=== PATIENT | female | born 1985 | race Caucasian/White ===

== ENCOUNTER → 2017-02-24 | Outpatient (CLI) | payer BC ==
[2017-02-24 08:31] LABS: HCG, SERUM QUANTITATIVE < 1.0 MIU/ML
[2017-02-24 10:04] LABS: LUTEINIZING HORMONE 3.6 mIU/mL; PROGESTERONE 0.4 NG/ML
[2017-02-24 10:05] LABS: ESTRADIOL 61.4 PG/ML; FOLLICLE STIMULATING HORMONE 4.7 mIU/mL
== END ==
LOC: M LAB 02-23 15:52
PROVIDERS: ATTEND Obstetrics & Gynecology Reproductive Endocrinology
DX: N97.9 Female infertility, unspecified (principal)

== ENCOUNTER → 2017-03-03 | Outpatient (CLI) | payer BC ==
[2017-03-03 09:06] LABS: HCG, SERUM QUANTITATIVE < 1.0 MIU/ML
[2017-03-03 09:26] LABS: ESTRADIOL 58.4 PG/ML; FOLLICLE STIMULATING HORMONE 5.2 mIU/mL; LUTEINIZING HORMONE 7.4 mIU/mL; PROGESTERONE 0.2 NG/ML
--- NOTE | 2017-03-03 10:01 | REP ---
Pelvic Sonography: History: Infertility. Transvaginal study. Findings: Uterine dimensions today are 9.1 x 3.2 x 4.7 cm. Endometrial echo 0.4 cm thick. A Nabothian cyst is seen in the cervix. There are tiny cysts adjacent to the endometrium. No focal uterine mass is seen. No free fluid noted. The right ovaries dimensions today overall are 4.8 x 2.3 x 3.5 cm. There are five follicles in the right ovary over 1 cm measured as follows: 1.1 x 0.6, 1.5 x 0.6, 1.5 x 0.6, 1.5 x 1.4, and 1.1 x 0.7 cm. In addition, there are 27 follicles in the right ovary ranging in size from 0.3-0.9 cm. The left ovaries dimensions are 3.2 x 2.1 x 2.8 cm. There is a 1.5 x 1.1 cm follicle in the left ovary and there are 19 follicles ranging in size from 0.2-0.9 cm. Impression: Ovarian follicle study as above. Signed by Ryland Bradley MD 03/03/2017 01:24 P
== END ==
LOC: M LAB 07:28
PROVIDERS: ATTEND Obstetrics & Gynecology Reproductive Endocrinology
DX: N97.9 Female infertility, unspecified (principal)

== ENCOUNTER → 2017-03-05 | Outpatient (CLI) | payer BC ==
--- NOTE | 2017-03-05 08:32 | REP ---
Pelvic ultrasound, endovaginal imaging for follicle analysis: Right ovary: There are two follicles greater than 10 mm, the largest measuring up to 20.5 mm. In addition, there are 27 follicles measuring 1.7 290.9 mm. The right ovary is normal size measuring 5.2 x 3 by 1 x 3.2 cm. Left ovary: There are two follicles greater than 10 mm, the largest measuring up to 21.1 mm. In addition, there are 80 follicles measuring 1.8-7.7 mm. The left ovary is normal size measuring 3.4-0.2 x 3.0 cm. The uterus is anteverted and normal size measuring 9.1 x 3.4 x 4.3 cm. The endometrium measures 8.5 mm and has a trilaminar appearance. Signed by Joseph Rosenbaum MD 03/05/2017 08:23 A
[2017-03-05 08:58] LABS: HCG, SERUM QUANTITATIVE < 1.0 MIU/ML
[2017-03-05 09:13] LABS: ESTRADIOL 149.9 PG/ML; LUTEINIZING HORMONE 5.4 mIU/mL; PROGESTERONE 0.2 NG/ML
[2017-03-05 09:14] LABS: FOLLICLE STIMULATING HORMONE 3.8 mIU/mL
== END ==
LOC: M RAD 07:24
PROVIDERS: ATTEND Obstetrics & Gynecology Reproductive Endocrinology
DX: N97.9 Female infertility, unspecified (principal)

== ENCOUNTER → 2017-03-15 | Outpatient (CLI) | payer BC ==
[2017-03-15 10:10] LABS: PROGESTERONE 36.7 NG/ML
[2017-03-15 14:42] LABS: ESTRADIOL 138.1 PG/ML
== END ==
LOC: M LAB 09:15
PROVIDERS: ATTEND Obstetrics & Gynecology Reproductive Endocrinology
DX: Z31.49 Encounter for other procreative investigation and testing (principal)

== ENCOUNTER → 2017-03-22 | Outpatient (CLI) | payer BC ==
[2017-03-22 09:03] LABS: HCG, SERUM QUANTITATIVE < 1.0 MIU/ML
[2017-03-22 11:54] LABS: PROGESTERONE 10.5 NG/ML
== END ==
LOC: M LAB 07:39
PROVIDERS: ATTEND Obstetrics & Gynecology Reproductive Endocrinology
DX: Z32.00 Encounter for pregnancy test, result unknown (principal)

== ENCOUNTER → 2017-03-26 | Outpatient (CLI) | payer BC ==
[2017-03-26 07:16] LABS: HCG, SERUM QUANTITATIVE < 1.0 MIU/ML
--- NOTE | 2017-03-26 08:02 | REP ---
Pelvic ultrasound, endovaginal imaging for follicle analysis: Right ovary: There are no follicles greater than 10 mm. There are three follicles measuring 5 mm. Right ovary is normal size measuring 3.3 x 1.7 x 2.1 cm. Left ovary: There are no follicles greater than 10 mm. There is one follicle measuring 6 mm. Left ovary is normal size measuring 3.6 x 1 point and a 2.4 cm. The uterus is anteverted and mildly enlarged measuring 9.5 x 3.7 x 4 point centimeters. The endometrium is not thickened measuring 2.8 mm Signed by Joseph Rosenbaum MD 03/26/2017 07:53 A
[2017-03-26 09:43] LABS: LUTEINIZING HORMONE 5.1 mIU/mL; PROGESTERONE 0.4 NG/ML
[2017-03-26 09:44] LABS: ESTRADIOL 49.6 PG/ML; FOLLICLE STIMULATING HORMONE 5.6 mIU/mL
== END ==
LOC: M RAD 06:15
PROVIDERS: ATTEND Obstetrics & Gynecology Reproductive Endocrinology
DX: N97.9 Female infertility, unspecified (principal)

== ENCOUNTER → 2017-04-13 | Outpatient (CLI) | payer BC ==
[2017-04-13 09:11] LABS: ESTRADIOL 101.6 PG/ML; PROGESTERONE 24.2 NG/ML
== END ==
LOC: M LAB 07:27
PROVIDERS: ATTEND Obstetrics & Gynecology Reproductive Endocrinology
DX: Z31.49 Encounter for other procreative investigation and testing (principal)

== ENCOUNTER → 2017-04-20 | Outpatient (CLI) | payer BC ==
[2017-04-20 08:21] LABS: HCG, SERUM QUANTITATIVE < 1.0 MIU/ML
[2017-04-20 09:16] LABS: PROGESTERONE 4.4 NG/ML
== END ==
LOC: M LAB 07:37
PROVIDERS: ATTEND Obstetrics & Gynecology Reproductive Endocrinology
DX: Z32.00 Encounter for pregnancy test, result unknown (principal)

== ENCOUNTER → 2017-04-30 | Outpatient (CLI) | payer BC ==
--- NOTE | 2017-04-30 08:55 | REP ---
Transvaginal pelvic sonography: History: Infertility. Comparison study April 05, 2017. Today's sonographic findings: Uterine dimensions today are normal at 8.3 x 3.3 x 4.4 cm. Endometrial stripe is 0.3 cm thick. The endocervical endometrium is somewhat thickened and the cervix appears somewhat bulky compared to the prior study although no definable mass lesion is seen. No free fluid is noted. Overall dimensions of the right ovary today are 4.0 x 2.7 x 3.3 cm. There are 6 follicles in the right ovary measuring over a centimeter as follows: 1.1 x 0.7, 1.1 x 0.7, 1.1 x 0.4, 1.1 x 0.8, 1.0 x 0.6, and 1.7 x 1.0 cm. In addition, the right ovary contains 31 follicles ranging in size from 0.2-0.9 cm. The overall dimensions of the left ovary are 4.4 x 2.5 x 3.5 cm. There are 8 follicles in the left ovary over a centimeter measured as follows: 1.1 x 0.6, 1.1 x 0.4, 1.3 x 0.5, 1.2 x 0.9, 1.6 x 0.9, 1.0 x 0.8, 1.1 x 0.7, and 1.4 x 1.1 cm. In addition, the left ovary contains 33 follicles ranging in size from 0.2-0.9 cm. Impression: Ovarian follicle study as above. Prominent cervix and endocervical canal today. Signed by Ryland Bradley MD 04/30/2017 09:38 A
[2017-04-30 10:37] LABS: LUTEINIZING HORMONE 14.1 mIU/mL; PROGESTERONE < 0.2 NG/ML
[2017-04-30 10:38] LABS: ESTRADIOL 39.4 PG/ML
== END ==
LOC: M RAD 07:55
PROVIDERS: ATTEND Obstetrics & Gynecology Reproductive Endocrinology
DX: N97.9 Female infertility, unspecified (principal)

== ENCOUNTER → 2017-05-03 | Outpatient (CLI) | payer BC ==
--- NOTE | 2017-05-03 08:30 | REP ---
Endovaginal probe pelvic ultrasound 05/03/2017. Clinical history: Infertility. Comparison 04/30/2017. Findings. Endovaginal probe shows uterus anteverted and 8.53.3 x 4.5 cm. Uterus is homogeneous in echogenicity and smooth in contour. The endometrial stripe has a three line appearance with thickness of 5.7 mm. The right ovary is 4.3 x 3 x 3.4 cm. Within it are two follicles over a centimeter. The larger 2.1 x 1.6, the smaller 10.1 x 0.7 cm. There are 11 follicles in the 2.4 - 8.1 mm range. The left ovary is 4.3 x 2.5 x 3.1 cm. There are four follicles over a centimeter. The largest is 14.6 mm, another is 13.3, 11.7 and the smallest 10.5 mm. There are 16 follicles in the 2.4 to 8.4 mm range. Impression: 1. Two follicles over a centimeter in the right ovary at 2.1 and 1.0 cm and four follicles in the left ovary over a centimeter as above. No pelvic free fluid. Uterus and endometrial stripe normal. Signed by Grayson Santamaria MD 05/04/2017 05:48 P
[2017-05-03 10:38] LABS: LUTEINIZING HORMONE 7.2 mIU/mL; PROGESTERONE < 0.2 NG/ML
[2017-05-03 10:39] LABS: ESTRADIOL 103.5 PG/ML
== END ==
LOC: M RAD 06:25
PROVIDERS: ATTEND Obstetrics & Gynecology Reproductive Endocrinology
DX: N97.9 Female infertility, unspecified (principal); N83.01 Follicular cyst of right ovary; N83.02 Follicular cyst of left ovary

== ENCOUNTER → 2017-05-05 | Outpatient (CLI) | payer BC ==
--- NOTE | 2017-05-05 09:13 | REP ---
Endovaginal probe pelvic ultrasound: 03/05/2017. Clinical history infertility. Comparison: 05/03/2017. Findings: Anteverted uterus seen measuring 8.7 x 3.4 x 4.7 cm. There is a three line endometrial echogenic stripe with a thickness of 9.3 mm. No fluid in endometrial cavity or endocervical canal. The right ovary is 5.6 x 2.5 x 4.1 cm. There are two follicles over a centimeter. Larger is 2.7 x 1.7 cm and the smaller 1.2 by L1 0.1 cm. There are nine follicles in the 2.6-9.3 mm range. The left ovary is 4.6 x 2.9 x 3.1 cm. There are three follicles over a centimeter. Measure 1.4 x 1.2, 1.3 x 0.6 and 1.2 x 1.1 cm. There are 22 additional follicles ranging from 3.6 - 9.7 mm. No fluid adjacent to the ovaries or in the cul-de-sac. Impression: 1. Two follicles over a centimeter in the right ovary, three follicles over a centimeter in the left ovary. No pelvic free fluid. Endometrial stripe and uterus unremarkable. Signed by Grayson Santamaria MD 05/05/2017 08:12 A
[2017-05-05 10:03] LABS: LUTEINIZING HORMONE 11.3 mIU/mL; PROGESTERONE < 0.2 NG/ML
[2017-05-05 10:06] LABS: ESTRADIOL 269.7 PG/ML
== END ==
LOC: M RAD 06:22
PROVIDERS: ATTEND Obstetrics & Gynecology Reproductive Endocrinology
DX: N97.9 Female infertility, unspecified (principal)

== ENCOUNTER → 2017-05-13 | Outpatient (CLI) | payer BC ==
[2017-05-13 09:12] LABS: ESTRADIOL 239.9 PG/ML; PROGESTERONE 29.7 NG/ML
== END ==
LOC: M LAB 08:05
PROVIDERS: ATTEND Obstetrics & Gynecology Reproductive Endocrinology
DX: N97.9 Female infertility, unspecified (principal)

== ENCOUNTER → 2017-05-25 | Outpatient (CLI) | payer BC ==
[2017-05-25 14:45] LABS: PROGESTERONE 22.5 NG/ML
== END ==
LOC: M LAB 13:53
PROVIDERS: ATTEND Obstetrics & Gynecology Reproductive Endocrinology
DX: Z31.41 Encounter for fertility testing (principal)

== ENCOUNTER → 2017-05-27 | Outpatient (CLI) | payer BC ==
[2017-05-27 09:02] LABS: HCG, SERUM QUANTITATIVE 472 MIU/ML
[2017-05-27 10:14] LABS: PROGESTERONE 37.9 NG/ML
== END ==
LOC: M LAB 07:51
DX: Z32.01 Encounter for pregnancy test, result positive (principal)
CPT/HCPCS: 84702

== ENCOUNTER → 2017-06-25 | Outpatient (CLI) | payer BC ==
[2017-06-25 09:43] LABS: HCG, SERUM QUANTITATIVE 726 MIU/ML
== END ==
LOC: M LAB 08:32
DX: Z31.41 Encounter for fertility testing (principal)
CPT/HCPCS: 84702

== ENCOUNTER → 2017-07-02 | Outpatient (CLI) | payer BC ==
[2017-07-02 09:43] LABS: HCG, SERUM QUANTITATIVE 182 MIU/ML
== END ==
LOC: M LAB 08:25
DX: O02.1 Missed abortion (principal)
CPT/HCPCS: 84702

== ENCOUNTER → 2017-07-09 | Outpatient (CLI) | payer BC ==
[2017-07-09 08:51] LABS: HCG, SERUM QUANTITATIVE 63 MIU/ML
== END ==
LOC: M LAB 07:43
DX: O02.1 Missed abortion (principal)

== ENCOUNTER → 2017-07-16 | Outpatient (CLI) | payer BC ==
[2017-07-16 11:07] LABS: LUTEINIZING HORMONE 7.2 mIU/mL
[2017-07-16 11:07] LABS: PROGESTERONE < 0.2 NG/ML
[2017-07-16 11:09] LABS: ESTRADIOL 48.9 PG/ML
[2017-07-17 08:56] LABS: HCG, SERUM QUANTITATIVE 15 MIU/ML
== END ==
LOC: M LAB 09:45
DX: E28.9 Ovarian dysfunction, unspecified (principal)
CPT/HCPCS: 83002

== ENCOUNTER → 2017-07-19 | Outpatient (CLI) | payer BC ==
[2017-07-19 09:42] LABS: HCG, SERUM QUANTITATIVE 10 MIU/ML
[2017-07-19 11:04] LABS: PROGESTERONE 0.4 NG/ML
[2017-07-19 11:04] LABS: ESTRADIOL 57.6 PG/ML; FOLLICLE STIMULATING HORMONE 4.4 mIU/mL
== END ==
LOC: M RAD 07:58
DX: N85.8 Other specified noninflammatory disorders of uterus (principal); N97.9 Female infertility, unspecified
CPT/HCPCS: 76830

== ENCOUNTER → 2017-07-21 | Outpatient (CLI) | payer BC ==
[2017-07-21 08:08] LABS: HCG, SERUM QUANTITATIVE 6 MIU/ML
== END ==
LOC: M LAB 07:14
DX: Z32.00 Encounter for pregnancy test, result unknown (principal)

== ENCOUNTER → 2017-07-28 | Outpatient (CLI) | payer BC ==
[2017-07-28 09:55] LABS: LUTEINIZING HORMONE 9.7 mIU/mL
[2017-07-28 09:55] LABS: PROGESTERONE 0.5 NG/ML
[2017-07-28 11:40] LABS: HCG, SERUM QUANTITATIVE 2 MIU/ML
== END ==
LOC: M LAB 06:20
DX: N97.9 Female infertility, unspecified (principal)

== ENCOUNTER → 2017-08-05 | Outpatient (CLI) | payer BC ==
[2017-08-05 09:43] LABS: PROGESTERONE 43.1 NG/ML
[2017-08-05 09:43] LABS: ESTRADIOL 91.1 PG/ML
== END ==
LOC: M LAB 07:24
DX: E28.9 Ovarian dysfunction, unspecified (principal)
CPT/HCPCS: 84443

== ENCOUNTER → 2017-08-12 | Outpatient (CLI) | payer BC ==
[2017-08-12 08:53] LABS: HCG, SERUM QUANTITATIVE < 1.0 MIU/ML
[2017-08-12 09:28] LABS: PROGESTERONE 3.9 NG/ML
== END ==
LOC: M LAB 07:45
DX: E28.9 Ovarian dysfunction, unspecified (principal)
CPT/HCPCS: 84443

== ENCOUNTER → 2017-08-24 | Outpatient (CLI) | payer BC ==
[2017-08-24 11:43] LABS: PROGESTERONE < 0.2 NG/ML
[2017-08-24 11:44] LABS: ESTRADIOL 126.1 PG/ML; LUTEINIZING HORMONE 7.9 mIU/mL
== END ==
LOC: M RAD 07:01
DX: N97.9 Female infertility, unspecified (principal)

== ENCOUNTER → 2017-08-26 | Outpatient (CLI) | payer BC ==
[2017-08-26 10:19] LABS: PROGESTERONE < 0.2 NG/ML
[2017-08-26 10:19] LABS: ESTRADIOL 266.4 PG/ML; LUTEINIZING HORMONE 10.4 mIU/mL
== END ==
LOC: M RAD 06:24
DX: E28.9 Ovarian dysfunction, unspecified (principal); N83.02 Follicular cyst of left ovary; N83.01 Follicular cyst of right ovary
CPT/HCPCS: 76830

== ENCOUNTER → 2017-09-10 | Outpatient (CLI) | payer BC ==
[2017-09-10 10:14] LABS: HCG, SERUM QUANTITATIVE < 1.0 MIU/ML
[2017-09-10 10:17] LABS: PROGESTERONE 3.3 NG/ML
== END ==
LOC: M LAB 08:51
DX: Z32.00 Encounter for pregnancy test, result unknown (principal)

== ENCOUNTER → 2017-10-27 | Outpatient (CLI) | payer BC ==
[2017-10-27 08:23] LABS: HCG, SERUM QUANTITATIVE < 1.0 MIU/ML
[2017-10-27 10:50] LABS: PROGESTERONE 13.5 NG/ML
== END ==
LOC: M LAB 07:11
DX: E28.9 Ovarian dysfunction, unspecified (principal)
CPT/HCPCS: 84702

== ENCOUNTER → 2017-11-23 | Outpatient (CLI) | payer BC ==
[2017-11-23 09:00] LABS: PROGESTERONE 37.8 NG/ML
[2017-11-23 09:01] LABS: ESTRADIOL 739.2 PG/ML
== END ==
LOC: M LAB 07:35
DX: E28.9 Ovarian dysfunction, unspecified (principal)
CPT/HCPCS: 84443

== ENCOUNTER → 2017-11-29 | Outpatient (CLI) | payer BC ==
[2017-11-29 08:15] LABS: HCG, SERUM QUANTITATIVE < 1.0 MIU/ML
[2017-11-29 08:56] LABS: PROGESTERONE 1.8 NG/ML
== END ==
LOC: M LAB 07:19
DX: E28.9 Ovarian dysfunction, unspecified (principal)
CPT/HCPCS: 84702

== ENCOUNTER → 2017-12-22 | Outpatient (CLI) | payer BC ==
[2017-12-22 11:24] LABS: PROGESTERONE 53.6 NG/ML
[2017-12-22 11:25] LABS: ESTRADIOL 281.8 PG/ML
== END ==
LOC: M LAB 07:24
DX: E28.9 Ovarian dysfunction, unspecified (principal)
CPT/HCPCS: 84443

== ENCOUNTER → 2017-12-27 | Outpatient (CLI) | payer BC ==
[2017-12-27 08:28] LABS: HCG, SERUM QUANTITATIVE < 1.0 MIU/ML
[2017-12-27 08:34] LABS: PROGESTERONE 13.4 NG/ML
== END ==
LOC: M LAB 07:20
DX: E28.9 Ovarian dysfunction, unspecified (principal)
CPT/HCPCS: 84702

== ENCOUNTER → 2018-01-07 | Outpatient (CLI) | payer BC ==
[2018-01-07 08:51] LABS: HEMATOCRIT 40.8 % (36.0-47.0); HEMOGLOBIN 13.3 g/dl (12.0-15.5); MEAN CORPUSCULAR HGB CONC 32.6 g/dl (32.0-36.5); MEAN CORPUSCULAR VOLUME 85.9 fl (80.0-96.0); PLATELET COUNT, AUTOMATED 188 10^3/uL (150-450); RED BLOOD COUNT 4.75 10^6/uL (4.00-5.40); RED CELL DISTRIBUTION WIDTH 13.8 % (11.5-14.5)
[2018-01-07 09:23] LABS: ALBUMIN 3.9 GM/DL (3.2-5.2); ALBUMIN/GLOBULIN RATIO 1.34 (1.00-1.93); ALKALINE PHOSPHATASE 62 U/L (45-117); ALT/SGPT 34 U/L (12-78); ANION GAP 7 MEQ/L (8-16); AST/SGOT 17 U/L (7-37); BILIRUBIN,TOTAL 0.7 MG/DL (0.2-1.0); BLOOD UREA NITROGEN 9 MG/DL (7-18); CALCIUM LEVEL 8.5 MG/DL (8.5-10.1); CARBON DIOXIDE LEVEL 30 MEQ/L (21-32); CHLORIDE LEVEL 106 MEQ/L (98-107); CREATININE FOR GFR 0.85 MG/DL (0.55-1.30); GLOMERULAR FILTRATION RATE > 60.0 (>60); GLUCOSE, FASTING 88 MG/DL (70-100); HCG, SERUM QUANTITATIVE < 1.0 MIU/ML; POTASSIUM SERUM 3.9 MEQ/L (3.5-5.1); SODIUM LEVEL 143 MEQ/L (136-145); TOTAL PROTEIN 6.8 GM/DL (6.4-8.2)
== END ==
LOC: M LAB 08:00
DX: Z31.41 Encounter for fertility testing (principal)
CPT/HCPCS: 80053

== ENCOUNTER → 2018-02-23 | Outpatient (CLI) | payer BC ==
[2018-02-23 09:14] LABS: PROGESTERONE 38.3 NG/ML
== END ==
LOC: M LAB 07:02
DX: E28.9 Ovarian dysfunction, unspecified (principal)
CPT/HCPCS: 84443

== ENCOUNTER → 2018-02-28 | Outpatient (CLI) | payer BC ==
[2018-02-28 08:43] LABS: HCG, SERUM QUANTITATIVE < 1.0 MIU/ML
[2018-02-28 09:46] LABS: PROGESTERONE 2.3 NG/ML
== END ==
LOC: M LAB 07:32
DX: E28.9 Ovarian dysfunction, unspecified (principal)
CPT/HCPCS: 84702

== ENCOUNTER → 2018-03-23 | Outpatient (CLI) | payer BC ==
[2018-03-23 09:18] LABS: PROGESTERONE 31.1 NG/ML
[2018-03-23 09:19] LABS: ESTRADIOL 243.9 PG/ML
== END ==
LOC: M LAB 07:03
DX: E28.9 Ovarian dysfunction, unspecified (principal)
CPT/HCPCS: 84443

== ENCOUNTER → 2018-03-28 | Outpatient (CLI) | payer BC ==
[2018-03-28 08:11] LABS: HCG, SERUM QUANTITATIVE < 1.0 MIU/ML
[2018-03-28 09:36] LABS: PROGESTERONE 2.4 NG/ML
== END ==
LOC: M LAB 07:16
DX: E28.9 Ovarian dysfunction, unspecified (principal)
CPT/HCPCS: 84702

== ENCOUNTER → 2018-05-20 | Outpatient (CLI) | payer BC ==
[2018-05-20 11:30] LABS: THYROID STIMULATING HORMONE 1.14 uIU/ML (0.358-3.740)
[2018-05-20 11:33] LABS: PROGESTERONE 58.66 NG/ML
[2018-05-20 11:34] LABS: ESTRADIOL 120.8 PG/ML
== END ==
LOC: M LAB 10:35
PROVIDERS: ATTEND Obstetrics & Gynecology Reproductive Endocrinology
DX: E28.9 Ovarian dysfunction, unspecified (principal)

== ENCOUNTER → 2018-05-25 | Outpatient (CLI) | payer BC ==
[2018-05-25 08:16] LABS: HCG, SERUM QUANTITATIVE < 1.0 MIU/ML
[2018-05-25 08:24] LABS: PROGESTERONE 5.72 NG/ML
== END ==
LOC: M LAB 07:16
PROVIDERS: ATTEND Obstetrics & Gynecology Reproductive Endocrinology
DX: E28.9 Ovarian dysfunction, unspecified (principal)

== ENCOUNTER → 2018-06-21 | Outpatient (CLI) | payer BC ==
[2018-06-21 09:03] LABS: HCG, SERUM QUANTITATIVE < 1.0 MIU/ML
[2018-06-21 09:35] LABS: PROGESTERONE 1.72 NG/ML
== END ==
LOC: M LAB 07:57
PROVIDERS: ATTEND Obstetrics & Gynecology Reproductive Endocrinology
DX: Z32.00 Encounter for pregnancy test, result unknown (principal)

== ENCOUNTER → 2018-07-13 | Outpatient (CLI) | payer BC ==
[2018-07-13 08:57] LABS: THYROID STIMULATING HORMONE 1.8 uIU/ML (0.358-3.740)
[2018-07-13 09:54] LABS: PROGESTERONE 40.15 NG/ML
== END ==
LOC: M LAB 07:46
PROVIDERS: ATTEND Obstetrics & Gynecology Reproductive Endocrinology
DX: E28.9 Ovarian dysfunction, unspecified (principal)

== ENCOUNTER → 2018-07-20 | Outpatient (CLI) | payer BC ==
[2018-07-20 08:59] LABS: HCG, SERUM QUANTITATIVE < 1.0 MIU/ML
[2018-07-20 09:35] LABS: PROGESTERONE 1.59 NG/ML
== END ==
LOC: M LAB 07:48
PROVIDERS: ATTEND Obstetrics & Gynecology Reproductive Endocrinology
DX: E28.9 Ovarian dysfunction, unspecified (principal)

== ENCOUNTER → 2018-08-10 | Outpatient (CLI) | payer BC ==
[2018-08-10 08:42] LABS: THYROID STIMULATING HORMONE 2.02 uIU/ML (0.358-3.740)
[2018-08-10 09:22] LABS: ESTRADIOL 291.5 PG/ML; PROGESTERONE 31.93 NG/ML
== END ==
LOC: M LAB 07:23
PROVIDERS: ATTEND Obstetrics & Gynecology Reproductive Endocrinology
DX: E28.9 Ovarian dysfunction, unspecified (principal)

== ENCOUNTER → 2018-08-17 | Outpatient (CLI) | payer BC ==
[2018-08-17 08:13] LABS: HCG, SERUM QUANTITATIVE < 1.0 MIU/ML
[2018-08-17 08:20] LABS: PROGESTERONE 0.62 NG/ML
== END ==
LOC: M LAB 07:19
PROVIDERS: ATTEND Obstetrics & Gynecology Reproductive Endocrinology
DX: Z32.00 Encounter for pregnancy test, result unknown (principal)

== ENCOUNTER → 2019-02-03 | Outpatient (CLI) | payer BC ==
[2019-02-03 07:49] LABS: HCG, SERUM QUANTITATIVE < 1.0 MIU/ML
[2019-02-03 11:28] LABS: PROGESTERONE 21.46 NG/ML
== END ==
LOC: M LAB 06:50
PROVIDERS: ATTEND Obstetrics & Gynecology Reproductive Endocrinology
DX: E28.9 Ovarian dysfunction, unspecified (principal)

== ENCOUNTER → 2019-03-03 | Outpatient (CLI) | payer BC ==
[2019-03-03 09:18] LABS: HCG, SERUM QUANTITATIVE < 1.0 MIU/ML
[2019-03-03 09:57] LABS: PROGESTERONE 15.35 NG/ML
== END ==
LOC: M LAB 08:17
PROVIDERS: ATTEND Obstetrics & Gynecology Reproductive Endocrinology
DX: Z32.00 Encounter for pregnancy test, result unknown (principal)

== ENCOUNTER → 2019-03-24 | Outpatient (CLI) | payer BC ==
[2019-03-24 10:30] LABS: THYROID STIMULATING HORMONE 1.9 uIU/ML (0.358-3.740)
[2019-03-24 10:36] LABS: ESTRADIOL 156.3 PG/ML
[2019-03-24 11:17] LABS: PROGESTERONE 97.48 NG/ML
== END ==
LOC: M LAB 08:22
PROVIDERS: ATTEND Obstetrics & Gynecology Reproductive Endocrinology
DX: E28.9 Ovarian dysfunction, unspecified (principal)

== ENCOUNTER → 2019-03-31 | Outpatient (CLI) | payer BC ==
[2019-03-31 10:03] LABS: HCG, SERUM QUANTITATIVE < 1.0 MIU/ML
== END ==
LOC: M LAB 08:52
PROVIDERS: ATTEND Obstetrics & Gynecology Reproductive Endocrinology
DX: Z32.00 Encounter for pregnancy test, result unknown (principal)

== ENCOUNTER → 2019-06-08 | Outpatient (CLI) | payer BC ==
--- NOTE | 2019-06-08 11:26 | REP ---
Pelvic sonography: History: Infertility. Findings: Transvaginal pelvic sonography demonstrates normal size uterus with dimensions of 7.8 x 3.7 x 5.0 cm. There is a 0.7 cm hypoechoic area in the posterior myometrium which may be a small fibroid. Endometrial stripe is 1.3 cm thick. No free fluid is seen. The right ovary measures 4.2 x 2.7 x 5.1 cm in overall dimension. It contains two follicles measuring over a centimeter as follows: 1.1 x 0.8 and 1.0 x 0.9 cm. In addition, there are 24 follicles in the right ovary ranging in size from 0.3-0.9 cm. There is a complex cyst in the right ovary 3.5 x 2.7 x 2.6 cm in diameter. The overall dimensions of the left ovary today are 3.8 x 2.0 x 2.7 cm. There is a 1.2 x 1.1 cm follicle in the left ovary and there are 12 subcentimeter follicles ranging from 0.2-0.8 cm. Impression: Ovarian follicle study. As above. 3.5 cm complex cyst in the right ovary. Electronically Signed by Ryland Bradley MD 06/08/2019 07:52 A
[2019-06-09 16:56] LABS: ESTRADIOL 20.5 PG/ML; PROGESTERONE 21.23 NG/ML
== END ==
LOC: M RAD 06:25
PROVIDERS: ATTEND Obstetrics & Gynecology Reproductive Endocrinology
DX: N83.291 Other ovarian cyst, right side (principal); E28.9 Ovarian dysfunction, unspecified

== ENCOUNTER → 2019-06-12 | Outpatient (CLI) | payer BC ==
--- NOTE | 2019-06-12 08:06 | REP ---
Transvaginal pelvic sonography: History: Infertility study. Findings: Uterine dimensions are 8.0 x 3.4 x 4.9 cm. Endometrial echo 0.8 cm thick. There are two small hypoechoic areas in the uterine myometrium posteriorly which could be a fibroids. These measure 1.3 and 0.7 cm in greatest diameter respectively. No free fluid is seen in the cul-de-sac. Overall dimensions of the right ovary today are 4.4 x 2.2 x 4.5 cm. There is a 1.2 x 0.9 cm follicle in the right ovary and there are 19 follicles ranging in size from 0.2-0.8 cm. There is a complex cyst measuring 2.6 x 2.1 by 1.2 cm. The left ovary has overall dimensions of 4.0 x 2.3 x 2.7 cm. There are two follicles measuring greater than a centimeter as follows: 1.2 x 0.9, and 1.2 x 0.8 cm. In addition, the left ovary contains 12 follicles ranging in size from 0.2-0.8 cm. Impression: Follicle study as above. Electronically Signed by Ryland Bradley MD 06/12/2019 07:58 A
[2019-06-12 08:26] LABS: HCG, SERUM QUANTITATIVE < 1.0 MIU/ML
[2019-06-12 11:37] LABS: PROGESTERONE 1.49 NG/ML
[2019-06-12 11:38] LABS: ESTRADIOL 60.6 PG/ML; LUTEINIZING HORMONE 8.7 mIU/mL
== END ==
LOC: M RAD 06:33
PROVIDERS: ATTEND Obstetrics & Gynecology Reproductive Endocrinology
DX: E28.9 Ovarian dysfunction, unspecified (principal)

== ENCOUNTER → 2019-06-16 | Outpatient (CLI) | payer BC ==
[2019-06-16 10:12] LABS: LUTEINIZING HORMONE 4.5 mIU/mL; PROGESTERONE 0.21 NG/ML
[2019-06-16 10:13] LABS: ESTRADIOL 177.4 PG/ML
--- NOTE | 2019-06-16 15:45 | REP ---
Transvaginal pelvic sonography: History: Ovarian follicle study. Infertility. Findings: Transvaginal sonography is performed. Uterine dimensions are 9.3 x 3.6 x 5.3 cm. Endometrial stripe 0.4 cm thick. There are two hypoechoic solid areas in the uterine myometrium consistent with fibroids. These measure 2.1 x 1.2 x 2.1 and 1.2 x 0.6 x 0.7 cm respectively. The smaller lesion is subserosal and posterior. The larger of the two is to the left of midline posterior and myometrial. Overall dimensions of the right ovary today are 4.4 x 3.2 x 3.9 cm. There are two follicles greater than a centimeter in the right ovary: 1.1 x 0.8 and 2.0 x 1.6 cm. In addition, the right ovary contains 13 follicles ranging from 0.3-0.9 cm. The left ovary dimensions are 4.1 x 2.4 x 2.9 cm. The left ovary contains two follicles larger than a centimeter measured as follows: 1.6 x 1.7, and 1.2 x 0.3 centimeters. In addition, the left ovary contains 10 follicles ranging in size from 0.2-0.7 cm. Impression: Ovarian follicle study as above. Electronically Signed by Ryland Bradley MD 06/16/2019 08:17 A
== END ==
LOC: M RAD 06:59
PROVIDERS: ATTEND Obstetrics & Gynecology Reproductive Endocrinology
DX: E28.9 Ovarian dysfunction, unspecified (principal)

== ENCOUNTER → 2019-07-10 | Outpatient (CLI) | payer BC ==
--- NOTE | 2019-07-10 07:23 | REPVR ---
PROCEDURE INFORMATION: Exam: US Pelvis, Transvaginal Exam date and time: 07/10/2019 6:56 AM Age: 33 years old Clinical indication: Screening exam; Follicle study; Additional info: Uterine dysfunction TECHNIQUE: Imaging protocol: Real-time transvaginal pelvic ultrasound with image documentation. Transvaginal imaging was used for better evaluation of the endometrium and adnexa. COMPARISON: Transvaginal NON- US 06/16/2019 7:35 AM FINDINGS: Uterus/cervix: The uterus measures 9.4 x 3.6 x 5.6 cm. There is an ill-defined heterogeneous intramural hypoattenuation in the posterior central to left mid uterine body measuring 1.5 x 1.1 x 1.7 cm. There is another intramural with a small subserosal component hypoattenuation in the posterior mid uterine body on the right measuring 0.8 x 0.6 x 0.9 cm. The endometrium is normal in thickness with trilaminar appearance measuring 8 mm. Right adnexa: The right ovary measures 5.9 x 2.9 x 5.0 cm containing numerous follicular cysts the largest measuring 2.2 x 1.7 cm. Left adnexa: The left ovary measures 4.4 x 2.8 x 2.2 cm containing multiple follicular cysts the largest measuring 1.5 x 0.9 cm. Free fluid: None. IMPRESSION: 1. Bilateral ovarian follicular cysts. 2. Two ill-defined heterogeneous uterine hypoattenuation statistically likely fibroids. Electronically signed by: Suresh Thurston On 07/10/2019 07:23:14 AM
[2019-07-10 12:06] LABS: ESTRADIOL 1435.9 PG/ML; LUTEINIZING HORMONE 2.4 mIU/mL; PROGESTERONE 0.35 NG/ML
== END ==
LOC: M RAD 06:09
PROVIDERS: ATTEND Obstetrics & Gynecology Reproductive Endocrinology
DX: N83.01 Follicular cyst of right ovary (principal); N83.02 Follicular cyst of left ovary; E28.9 Ovarian dysfunction, unspecified

== ENCOUNTER → 2019-07-12 | Outpatient (CLI) | payer BC ==
--- NOTE | 2019-07-12 07:24 | REPVR ---
PROCEDURE INFORMATION: Exam: US Pelvis, Transvaginal Exam date and time: 07/12/2019 6:38 AM Age: 33 years old Clinical indication: Screening exam; Follicle study; Additional info: Ovarian dysfunction TECHNIQUE: Imaging protocol: Real-time transvaginal pelvic ultrasound with image documentation. Transvaginal imaging was used for better evaluation of the endometrium and adnexa. COMPARISON: Transvaginal NON- US 07/10/2019 6:25 AM FINDINGS: Uterus/cervix: The uterus measures 10.0 x 8.4 x 5.7 cm. It again contains 2 fibroids, including an intramural/subserosal fibroid posteriorly on the right measuring 11 x 7 x 10 mm, and an intramural fibroid posteriorly on the left measuring 16 x 14 x 13 mm. The endometrium measures 9 mm in thickness. Small fluid is again present in the cervical canal. Right adnexa: The right ovary measures 7.0 x 7.1 x 3.7 cm. It contains multiple follicles and cysts measuring up to 2.6 cm, including 7 subcentimeter follicles. Left adnexa: The left ovary measures 3.7 x 4.2 x 2.4 cm. It contains multiple follicles measuring up to 1.7 cm, including 8 subcentimeter follicles. Free fluid: There is trace fluid in the posterior cul-de-sac. IMPRESSION: 1. Multiple bilateral ovarian follicles with right ovarian cysts measuring up to 2.6 cm. 2. Two uterine fibroids, as on 07/10/19. 3. Small fluid again present in the cervical canal. 4. Trace free fluid in the cul-de-sac. Electronically signed by: Chris Delatorre On 07/12/2019 07:24:06 AM
[2019-07-12 11:11] LABS: ESTRADIOL 2550.7 PG/ML; FOLLICLE STIMULATING HORMONE 17.7 mIU/mL; PROGESTERONE 0.74 NG/ML
== END ==
LOC: M RAD 06:14
PROVIDERS: ATTEND Obstetrics & Gynecology Reproductive Endocrinology
DX: N83.01 Follicular cyst of right ovary (principal); D25.9 Leiomyoma of uterus, unspecified; E28.9 Ovarian dysfunction, unspecified

== ENCOUNTER → 2019-07-24 | Outpatient (CLI) | payer BC ==
[2019-07-24 09:31] LABS: ESTRADIOL 1176.1 PG/ML; PROGESTERONE 36.01 NG/ML
== END ==
LOC: M LAB 07:05
PROVIDERS: ATTEND Obstetrics & Gynecology Reproductive Endocrinology
DX: E28.9 Ovarian dysfunction, unspecified (principal)

== ENCOUNTER → 2019-07-31 | Outpatient (CLI) | payer BC ==
[2019-07-31 08:03] LABS: HCG, SERUM QUANTITATIVE < 1.0 MIU/ML
[2019-07-31 09:29] LABS: PROGESTERONE 29.89 NG/ML
== END ==
LOC: M LAB 07:11
PROVIDERS: ATTEND Obstetrics & Gynecology Reproductive Endocrinology
DX: E28.9 Ovarian dysfunction, unspecified (principal)

== ENCOUNTER → 2019-08-07 | Outpatient (CLI) | payer BC ==
--- NOTE | 2019-08-07 07:19 | REPVR ---
PROCEDURE INFORMATION: Exam: US Pelvis, Transvaginal Exam date and time: 08/07/2019 6:44 AM Age: 33 years old Clinical indication: Screening exam; Follicle study; Additional info: Ovarian dysfunction TECHNIQUE: Imaging protocol: Real-time transvaginal pelvic ultrasound with image documentation. Transvaginal imaging was used for better evaluation of the endometrium and adnexa. COMPARISON: Transvaginal NON- US 07/12/2019 6:16 AM FINDINGS: Uterus/cervix: The endometrial stripe measures 5 mm in thickness. There is a small anechoic structure in the sub endometrium in the body of the uterus measuring 4 x 4 x 3 mm. This seems to have been included on 1 image on the prior exam but was smaller, measuring 2 x 3 mm previously. There is a posterior subserosal fibroid on the right side measuring 1.1 x 1.0 x 1.0 cm. There is a posterior intramural fibroid on the left side measuring 1.2 x 0.8 x 1.4 cm. Right adnexa: The right ovary is expanded measuring 7.1 x 3.2 x 6.5 cm. There are 2 cystic areas within the right ovary which are complex with internal echoes, likely representing hemorrhagic cysts. One measures 2.9 x 2.0 cm and the other measures 2.1 x 1.6 cm. There is a 13 x 8 mm follicle in the right ovary and multiple additional follicles numbering 16, ranging from 3-9 mm. Left adnexa: The left ovary measures 3.2 x 2.0 x 2.9 cm. There are multiple small follicles in the left ovary, numbering 10, ranging from 3-8 mm. Free fluid: There is a trace of free fluid in the cul-de-sac. IMPRESSION: 1. The right ovary is expanded and contains 2 hemorrhagic cysts which are new or have changed in appearance compared to the prior exam. 2. Multiple small follicles in both ovaries. 3. Round anechoic structure measuring up to 4 mm in the sub endometrium in the body of the uterus, probably representing adenomyosis. 4. Two small fibroids. Electronically signed by: Yolette Sim On 08/07/2019 07:19:30 AM
[2019-08-07 07:30] LABS: HCG, SERUM QUANTITATIVE < 1.0 MIU/ML; THYROID STIMULATING HORMONE 0.812 uIU/ML (0.358-3.740)
[2019-08-07 09:37] LABS: LUTEINIZING HORMONE 3.3 mIU/mL; PROGESTERONE 0.38 NG/ML
[2019-08-07 09:38] LABS: ESTRADIOL 33.1 PG/ML; FOLLICLE STIMULATING HORMONE 4.7 mIU/mL
== END ==
LOC: M RAD 06:08
PROVIDERS: ATTEND Obstetrics & Gynecology Reproductive Endocrinology
DX: N83.291 Other ovarian cyst, right side (principal); N85.8 Other specified noninflammatory disorders of uterus; D25.9 Leiomyoma of uterus, unspecified; E28.9 Ovarian dysfunction, unspecified

== ENCOUNTER → 2019-08-14 | Outpatient (CLI) | payer BC ==
--- NOTE | 2019-08-14 07:20 | REPVR ---
PROCEDURE INFORMATION: Exam: US Pelvis, Transvaginal Exam date and time: 08/14/2019 6:38 AM Age: 34 years old Clinical indication: Screening exam; Follicle study; Additional info: Ovarian dysfunction TECHNIQUE: Imaging protocol: Real-time transvaginal pelvic ultrasound with image documentation. Transvaginal imaging was used for better evaluation of the endometrium and adnexa. COMPARISON: Transvaginal NON- US 08/07/2019 5:19 AM FINDINGS: Uterus/cervix: The uterus measures 8.8 x 3.8 x 4.8 cm. There are again 2 posterior fibroids, 1 intramural, measuring 1.6 x 1.2 x 1.6 cm, and the other subserosal, measuring 1.1 x 0.8 x 0.8 cm. The endometrium measures up to 6 mm in thickness. There are 2 cystic foci along the endometrium, 1 stable and measuring 3 x 4 x 4 mm, and the other new and measuring 4 x 3 x 3 mm. There is small fluid in the cervix. Right adnexa: The right ovary measures 5.9 x 3.8 x 4.9 cm. It again contains 2 hemorrhagic cysts, which measure 3.1 x 2.9 x 2.6 cm and 2.2 x 1.4 x 1.7 cm (previously 2.9 x 2.0 cm and 2.1 x 1.6 cm, respectively). It also contains 13 follicles measuring between 2.4 and 9.6 mm. Left adnexa: The left ovary measures 2.7 x 2.8 x 2.4 cm. It contains a 10.1 x 7.6 mm follicle, as well as 11 additional follicles measuring between 2.5 and 8.5 mm. Free fluid: No significant free fluid is demonstrated. IMPRESSION: 1. Bilateral ovarian follicles as described. 2. Two hemorrhagic cysts in the right ovary, as on 08/07/19. 3. Two uterine fibroids again present. 4. Two small cystic foci along the endometrium, previously 1. 5. Small fluid in the cervix. Electronically signed by: Chris Delatorre On 08/14/2019 07:20:20 AM
[2019-08-14 09:31] LABS: ESTRADIOL 100.9 PG/ML; LUTEINIZING HORMONE 7.8 mIU/mL; PROGESTERONE 0.23 NG/ML
== END ==
LOC: M RAD 06:10
PROVIDERS: ATTEND Obstetrics & Gynecology Reproductive Endocrinology
DX: D25.9 Leiomyoma of uterus, unspecified (principal); N83.291 Other ovarian cyst, right side; N85.00 Endometrial hyperplasia, unspecified; E28.9 Ovarian dysfunction, unspecified

== ENCOUNTER → 2019-08-17 | Outpatient (CLI) | payer BC ==
--- NOTE | 2019-08-17 08:33 | REP ---
Transvaginal pelvic sonography: History: Ovarian dysfunction. Ovarian follicle study. Comparison study August 14, 2019. Findings: Uterine dimensions are 8.1 x 4.1 x 4.7 cm. Endometrial stripe is 0.8 cm thick. Small cystic areas are again seen. Uterine fibroids are noted measuring 1.2 and 1.0 cm in greatest diameter respectively. Overall dimensions of the right ovary today are 5.8 x 3.1 x 4.1 cm. There is a 1.3 x 0.6 cm follicle in the right ovary. There is a hemorrhagic follicle 2.1 x 1.7 x 1.9 cm and another 3.0 x 2.9 x 2.8 cm in the right ovary. In addition, the right ovary contains 13 follicles ranging in size from 0.3-0.7 cm. The left ovaries dimensions are 4.0 x 2.2 x 2.6 cm. There is one follicle over a centimeter measuring 1.1 x 0.7 cm. The left ovary contains 13 follicles ranging in size from 0.3-0.9 cm. Impression: Ovarian follicle study as above. Electronically Signed by Ryland Bradley MD 08/17/2019 08:25 A
[2019-08-17 12:26] LABS: ESTRADIOL 2288.1 PG/ML; LUTEINIZING HORMONE 7.5 mIU/mL; PROGESTERONE 0.21 NG/ML
== END ==
LOC: M RAD 07:09
PROVIDERS: ATTEND Obstetrics & Gynecology Reproductive Endocrinology
DX: E28.9 Ovarian dysfunction, unspecified (principal)

== ENCOUNTER 2019-08-22 08:24 | Emergency (ER) | payer BC ==
[~2019-08-22] VITALS: Ht 167.6 cm; Wt 75.0 kg
[2019-08-22] MEDS ORDERED: PROG50IN5 SQ (09:22)
[2019-08-22] MEDS ORDERED: NOVA1000 (09:22)
[2019-08-22] MEDS ORDERED: ENOX30IN3 SQ (09:22)
[2019-08-22] MEDS ORDERED: ESTR2TAB2 PO (09:22)
--- NOTE | 2019-08-22 09:48 | REP ---
Clinical: Cough and shortness of breath . Comparison: none. Findings: The mediastinum and cardiac silhouette are stable and within normal limits for portable technique. The lung gibbons are clear without acute consolidation, effusion, or pneumothorax. Skeletal structures are intact. Impression: No acute cardiopulmonary process appreciated. Electronically Signed by Shade Torres MD 08/22/2019 09:39 A
[2019-08-22 10:50] VITALS: BP 135/84
== END 2019-08-22 11:00 | disposition home or self-care (01) ==
LOC: M ED 08:24
DX: J06.9 Acute upper respiratory infection, unspecified (principal); Z79.899 Other long term (current) drug therapy
CPT/HCPCS: 36415; 71045; 84702; 87486; 87581; 87633; 87798; 99284; U0002

== ENCOUNTER → 2019-11-27 | Outpatient (CLI) | payer BC ==
[~2019-11-27] MED LIST: ENOX30IN3 SQ; ESTR2TAB2 PO; NOVA1000; PROG50IN5 SQ
[2019-11-27 08:14] LABS: BASO # 0.1 10^3/uL (0.0-0.2); EOS # 0.1 10^3/uL (0.0-0.5); EOS % 1.5 % (0.0-3.0); HEMATOCRIT 41.9 % (36.0-47.0); HEMOGLOBIN 13.3 g/dl (12.0-15.5); LYMPH # 2.3 10^3/uL (1.5-5.0); LYMPH % 32.2 % (24.0-44.0); MEAN CORPUSCULAR HEMOGLOBIN 27.3 pg (27.0-33.0); MEAN CORPUSCULAR HGB CONC 31.7 g/dl (32.0-36.5); MONO # 0.4 10^3/uL (0.0-0.8); MONO % 5.2 % (0.0-5.0); NEUTROPHILS # 4.4 10^3/uL (1.5-8.5); PLATELET COUNT, AUTOMATED 184 10^3/uL (150-450); RED BLOOD COUNT 4.87 10^6/uL (4.00-5.40); WHITE BLOOD COUNT 7.3 10^3/uL (4.0-10.0)
[2019-11-27 08:47] LABS: ALT/SGPT 22 U/L (12-78); BILIRUBIN,TOTAL 0.5 MG/DL (0.2-1.0); BLOOD UREA NITROGEN 12 MG/DL (7-18); CALCIUM LEVEL 9.1 MG/DL (8.5-10.1); CARBON DIOXIDE LEVEL 27 MEQ/L (21-32); CHLORIDE LEVEL 107 MEQ/L (98-107); CHOLESTEROL LEVEL 220 MG/DL (<200); CHOLESTEROL RISK RATIO 3.793 (<5); CREATININE FOR GFR 0.82 MG/DL (0.55-1.30); FREE T4 0.89 NG/DL (0.76-1.46); GLOMERULAR FILTRATION RATE > 60.0 (>60); GLUCOSE, FASTING 91 MG/DL (70-100); HDL CHOLESTEROL 58 MG/DL (>40); LDL CHOLESTEROL 141 MG/DL (<100); NON-HDL-C 162 MG/DL; POTASSIUM SERUM 4.1 MEQ/L (3.5-5.1); SODIUM LEVEL 140 MEQ/L (136-145); TRIGLYCERIDES LEVEL 106 MG/DL (<150)
[2019-11-27 09:57] LABS: TOTAL 25(OH) VITAMIN D 35.5 NG/ML (30.0-100.0)
== END ==
LOC: M LAB 07:31
PROVIDERS: ATTEND Nurse Practitioner Family
DX: Z00.00 Encounter for general adult medical examination without abnormal findings (principal)

== ENCOUNTER → 2020-01-25 | Outpatient (CLI) | payer BC ==
[2020-01-25 12:01] LABS: ESTRADIOL 380.1 PG/ML; PROGESTERONE 44.96 NG/ML
== END ==
LOC: M LAB 07:18
PROVIDERS: ATTEND Obstetrics & Gynecology Reproductive Endocrinology
DX: E28.9 Ovarian dysfunction, unspecified (principal)

== ENCOUNTER → 2020-01-29 | Outpatient (CLI) | payer BC ==
[2020-01-29 13:11] LABS: PROGESTERONE 46.43 NG/ML
== END ==
LOC: M LAB 07:02
PROVIDERS: ATTEND Obstetrics & Gynecology Reproductive Endocrinology
DX: Z32.00 Encounter for pregnancy test, result unknown (principal)

== ENCOUNTER 2020-06-10 16:23 | Emergency (ER) | payer BC ==
[2019-08-22 10:50] VITALS: BP_DIAS 84
[2020-06-10 16:24] VITALS: BP_SYST 175
--- OUTSIDE RECORDS SUMMARY | 2020-06-10 16:30 | CCD ---
Author Author [facility] Organization [facility] Address Unknown Phone Unavailable Care Team Providers Care Government Professor Name Role Phone Pleskach, Shameka PRESIDENT & FOUNDER Unavailable Unavailable Pleskach, Shameka PRESIDENT & FOUNDER Unavailable Unavailable Pleskach, Shameka PRESIDENT & FOUNDER Unavailable Unavailable Pleskach, Shameka PRESIDENT & FOUNDER Unavailable Unavailable Pleskach, Shameka PRESIDENT & FOUNDER Unavailable Unavailable Pleskach, Shameak PRESIDENT & FOUNDER Unavailable Unavailable Pleskach, Shameka PRESIDENT & FOUNDER Unavailable Unavailable Pleskach, Shameka PRESIDENT & FOUNDER Unavailable Unavailable Pleskach, Shameka PRESIDENT & FOUNDER Unavailable Unavailable Pleskach, Shameka PRESIDENT & FOUNDER Unavailable Unavailable Pleskach, Shameka PRESIDENT & FOUNDER Unavailable Unavailable Pleskach, Shameka PRESIDENT & FOUNDER Unavailable Unavailable Pleskach, Shameka PRESIDENT & FOUNDER Unavailable Unavailable Pleskach, Shameka PRESIDENT & FOUNDER Unavailable Unavailable Pleskach, Shameka PRESIDENT & FOUNDER Unavailable Unavailable Pleskach, Shameka PRESIDENT & FOUNDER Unavailable Unavailable Pleskach, Shameka PRESIDENT & FOUNDER Unavailable Unavailable Pleskach, Shameka PRESIDENT & FOUNDER Unavailable Unavailable Pleskach, Shameka PRESIDENT & FOUNDER Unavailable Unavailable Pleskach, Shameka PRESIDENT & FOUNDER Unavailable Unavailable Pleskach, Shameka PRESIDENT & FOUNDER Unavailable Unavailable Pleskach, Shameka PRESIDENT & FOUNDER Unavailable Unavailable Pleskach, Shameka PRESIDENT & FOUNDER Unavailable Unavailable Pleskach, Shameka PRESIDENT & FOUNDER Unavailable Unavailable Pleskach, Shameka PRESIDENT & FOUNDER Unavailable Unavailable Pleskach, Shameka PRESIDENT & FOUNDER Unavailable Unavailable Pleskach, Shameka PRESIDENT & FOUNDER Unavailable Unavailable Pleskach, Shameka PRESIDENT & FOUNDER Unavailable Unavailable SUNDEEP MUNOZ MD Unavailable Unavailable SUNDEEP MUNOZ MD Unavailable Unavailable SUNDEEP MUNOZ MD Unavailable Unavailable SUNDEEP MUNOZ MD Unavailable Unavailable SUNDEEP MUNOZ MD Unavailable Unavailable SUNDEEP MUNOZ MD Unavailable Unavailable SUNDEEP MUNOZ MD Unavailable Unavailable SUNDEEP MUNOZ MD Unavailable Unavailable SUNDEEP MUNOZ MD Unavailable Unavailable SUNDEEP MUNOZ MD Unavailable Unavailable SUNDEEP MUNOZ MD Unavailable Unavailable SUNDEEP MUNOZ MD Unavailable Unavailable SUNDEEP MUNOZ MD Unavailable Unavailable SUNDEEP MUNOZ MD Unavailable Unavailable SUNDEEP MUNOZ MD Unavailable Unavailable SUNDEEP MUNOZ MD Unavailable Unavailable SUNDEEP MUNOZ MD Unavailable Unavailable SUNDEEP MUNOZ MD Unavailable Unavailable SUNDEEP MUNOZ MD Unavailable Unavailable SUNDEEP MUNOZ MD Unavailable Unavailable SUNDEEP MUNOZ MD Unavailable Unavailable SUNDEEP MUNOZ MD Unavailable Unavailable SUNDEEP MUNOZ MD Unavailable Unavailable SUNDEEP MUNOZ MD Unavailable Unavailable SUNDEEP MUNOZ MD Unavailable Unavailable SUNDEEP MUNOZ MD Unavailable Unavailable SUNDEEP MUNOZ MD Unavailable Unavailable SUNDEEP MUNOZ MD Unavailable Unavailable SUNDEEP MUNOZ MD Unavailable Unavailable SUNDEEP MUNOZ MD Unavailable Unavailable SUNDEEP MUNOZ MD Unavailable Unavailable SUNDEEP MUNOZ MD Unavailable Unavailable SUNDEEP MUNOZ MD Unavailable Unavailable SUNDEEP MUNOZ MD Unavailable Unavailable SUNDEEP MUNOZ MD Unavailable Unavailable SUNDEEP MUNOZ MD Unavailable Unavailable SUNDEEP MUNOZ MD Unavailable Unavailable SUNDEEP MUNOZ MD Unavailable Unavailable SUNDEEP MUNOZ MD Unavailable Unavailable SUNDEEP MUNOZ MD Unavailable Unavailable SUNDEEP MUNOZ MD Unavailable Unavailable SUNDEEP MUNOZ MD Unavailable Unavailable SUNDEEP MUNOZ MD Unavailable Unavailable SUNDEEP MUNOZ MD Unavailable Unavailable SUNDEEP MUNOZ MD Unavailable Unavailable SUNDEEP MUNOZ MD Unavailable Unavailable SUNDEEP MUNOZ MD Unavailable Unavailable SUNDEEP MUNOZ MD Unavailable Unavailable SUNDEEP MUNOZ MD Unavailable Unavailable SUNDEEP MUNOZ MD Unavailable Unavailable SUNDEEP MUNOZ MD Unavailable Unavailable SUNDEEP MUNOZ MD Unavailable Unavailable SUNDEEP MUNOZ MD Unavailable Unavailable SUNDEEP MUNOZ MD Unavailable Unavailable SUNDEEP MUNOZ MD Unavailable Unavailable SUNDEEP MUNOZ MD Unavailable Unavailable SUNDEEP MUNOZ MD Unavailable Unavailable SUNDEEP MUNOZ MD Unavailable Unavailable SUNDEEP MUNOZ MD Unavailable Unavailable SUNDEEP MUNOZ MD Unavailable Unavailable SUNDEEP MUNOZ MD Unavailable Unavailable SUNDEEP MUNOZ MD Unavailable Unavailable SUNDEEP MUNOZ MD Unavailable Unavailable SUNDEEP MUNOZ MD Unavailable Unavailable SUNDEEP MUNOZ MD Unavailable Unavailable SUNDEEP MUNOZ MD Unavailable Unavailable SUNDEEP MUNOZ MD Unavailable Unavailable SUNDEEP MUNOZ MD Unavailable Unavailable SUNDEEP MUNOZ MD Unavailable Unavailable SUNDEEP MUNOZ MD Unavailable Unavailable SUNDEEP MUNOZ MD Unavailable Unavailable SUNDEEP MUNOZ MD Unavailable Unavailable SUNDEEP MUNOZ MD Unavailable Unavailable SUNDEEP MUNOZ MD Unavailable Unavailable SUNDEEP MUNOZ MD Unavailable Unavailable SUNDEEP MUNOZ MD Unavailable Unavailable SUNDEEP MUNOZ MD Unavailable Unavailable SUNDEEP MUNOZ MD Unavailable Unavailable SUNDEEP MUNOZ MD Unavailable Unavailable SUNDEEP MUNOZ MD Unavailable Unavailable SUNDEEP MUNOZ MD Unavailable Unavailable SUNDEEP MUNOZ MD Unavailable Unavailable SUNDEEP MUNOZ MD Unavailable Unavailable SUNDEEP MUNOZ MD Unavailable Unavailable SUNDEEP MUNOZ MD Unavailable Unavailable SUNDEEP MUNOZ MD Unavailable Unavailable SUNDEEP MUNOZ MD Unavailable Unavailable SUNDEEP MUNOZ MD Unavailable Unavailable Overholt, T Ruben PA Unavailable Unavailable Overholt, T Ruben PA Unavailable Unavailable Overholt, T Ruben PA Unavailable Unavailable Overholt, T Ruben PA Unavailable Unavailable Overholt, T Urben PA Unavailable Unavailable Overholt, T Ruben PA Unavailable Unavailable Overholt, T Ruben PA Unavailable Unavailable Overholt, T Ruben PA Unavailable Unavailable Overholt, T Ruben PA Unavailable Unavailable Overholt, T Ruben PA Unavailable Unavailable Overholt, T Ruben PA Unavailable Unavailable Overholt, T Ruben PA Unavailable Unavailable Overholt, T Ruben PA Unavailable Unavailable Overholt, T Ruben PA Unavailable Unavailable Overholt, T Ruben PA Unavailable Unavailable RAJAN, L JORGE LYLE Unavailable Unavailable RAJAN, L JORGE LYLE Unavailable Unavailable RAJAN, L JORGE LYLE Unavailable Unavailable RAJAN, L JORGE LYLE Unavailable Unavailable RAJAN, L JORGE LYLE Unavailable Unavailable RAJAN, L JORGE LYLE Unavailable Unavailable RAJAN, L JORGE LYLE Unavailable Unavailable RAJAN, L JORGE LYLE Unavailable Unavailable RAJAN, L JORGE LYLE Unavailable Unavailable RAJAN, L JORGE LYLE Unavailable Unavailable RAJAN, L JORGE LYLE Unavailable Unavailable RAJAN, L JORGE LYLE Unavailable Unavailable RAJAN, L JORGE LYLE Unavailable Unavailable RAJAN, L JORGE LYLE Unavailable Unavailable RAJAN, L JORGE LYLE Unavailable Unavailable RAJAN, L JORGE LYLE Unavailable Unavailable RAJAN, L JORGE LYLE Unavailable Unavailable RAJAN, L JORGE LYLE Unavailable Unavailable RAJAN, L JORGE LYLE Unavailable Unavailable RAJAN, L JORGE LYLE Unavailable Unavailable RAJAN, L JORGE LYLE Unavailable Unavailable RAJAN, L JORGE LYLE Unavailable Unavailable RAJAN, L JORGE LYLE Unavailable Unavailable RAJAN, L JORGE LYLE Unavailable Unavailable RAJAN, L JORGE LYLE Unavailable Unavailable RAJAN, L JORGE LYLE Unavailable Unavailable RAJAN, L JORGE LYLE Unavailable Unavailable RAJAN, L JORGE LYLE Unavailable Unavailable RAJAN, L JORGE LYLE Unavailable Unavailable RAJAN, L JORGE LYLE Unavailable Unavailable RAJAN, L JORGE LYLE Unavailable Unavailable RAJAN, L JORGE LYLE Unavailable Unavailable RAJAN, L JORGE LYLE Unavailable Unavailable RAJAN, L JORGE LYLE Unavailable Unavailable RAJAN, L JORGE LYLE Unavailable Unavailable RAJAN, L JORGE LYLE Unavailable Unavailable RAJAN, L JORGE LYLE Unavailable Unavailable RAJAN, L JORGE LYLE Unavailable Unavailable RAJAN, L JORGE LYLE Unavailable Unavailable RAJAN, L JORGE LYLE Unavailable Unavailable RAJAN, L JORGE LYLE Unavailable Unavailable RAJAN, L JORGE LYLE Unavailable Unavailable Re-disclosure Warning The records that you are about to access may contain information from federally-assisted alcohol or drug abuse programs. If such information is present, then the following federally mandated warning applies: This information has been disclosed to you from records protected by federal confidentiality rules (42 CFR part 2). The federal rules prohibit you from making any further disclosure of this information unless further disclosure is expressly permitted by the written consent of the person to whom it pertains or as otherwise permitted by 42 CFR part 2. A general authorization for the release of medical or other information is NOT sufficient for this purpose. The Federal rules restrict any use of the information to criminally investigate or prosecute any alcohol or drug abuse patient.The records that you are about to access may contain highly sensitive health information, the redisclosure of which is protected by Article 27-F of the [facility] Public Health law. If you continue you may have access to information: Regarding HIV / AIDS; Provided by facilities licensed or operated by the [facility] Office of Mental Health; or Provided by the [facility] Office for People With Developmental Disabilities. If such information is present, then the following [facility] mandated warning applies: This information has been disclosed to you from confidential records which are protected by state law. State law prohibits you from making any further disclosure of this information without the specific written consent of the person to whom it pertains, or as otherwise permitted by law. Any unauthorized further disclosure in violation of state law may result in a fine or residential sentence or both. A general authorization for the release of medical or other information is NOT sufficient authorization for further disc losure. Family History Family Member Name Family Member Gender Family Member Status Date o f Status Description Data Source(s) Unknown Unknown Problem [facility] ([facility]) Encounters Encounter Providers Location Date Indications Data Source(s ) Outpatient Attender: Shameka Ochoa [facility] Main Office 11/22/2019 0 3:00:00 PM EDT [facility] ([facility] Outpatient Referrer: FANTASMA MUNOZ MD 08/30/2019 05:50:00 A M EDT [facility] Outpatient Referrer: FANTASMA MUNOZ MD 08/15/2019 11:21:00 A M EDT [facility] Outpatient Referrer: FANTASMA MUNOZ MD 08/01/2019 05:54:00 A M EST [facility] Outpatient Referrer: FNATASMA MUNOZ MD 06/23/2019 06:06:00 A M EST [facility] Outpatient Referrer: FANTASMA MUNOZ MD 06/22/2019 01:43:00 P M EST [facility] Outpatient Attender: Ruben HOLDEN Physical Therapy 12:30:00 PM EST [facility] ([facility]) Outpatient Attender: JORGE RAJAN MD [facility] 09:15:00 AM EST [facility] ([facility]) Medications Medication Brand Name Start Date Product Form Dose Route Admi nistrative Instructions Pharmacy Instructions Status Indications Reaction Description Data Source(s) meloxicam 15 MG Oral Tablet Meloxicam 06/02/2019 12:00:00 AM EST ORAL active [facility] ([facility]) Prednisone 5 MG Oral Tablet Prednisone 04/14/2019 12:00:00 AM EST active [facility] ([facility]) Insurance Providers Payer name Policy type / Coverage type Policy ID Covered constitution party ID Covered constitution party's relationship to richardson Policy Richardson Plan Information [place]/307 [id number] [id number] [employer] BCBS B [id number] P [id number] [place]/307 [id number] [id number] BCBS/[employer] Commercial [id number] Family Dependent [id number] [place] 302/307 [id number] [id number] [employer] BLUE CROSS BLUE SHIELD HEA [id number] SP [id number] [employer] BC-BS PPO 306 [id number] [id number] [employer] BC-BS PPO 306 [id number] HU2 [id number] [employer] BC-BS PPO 306 [id number] [id number] [employer] BC-BS PPO 306 [id number] [employer] BC-BS PPO 306 [id number] [id number] [employer] BC-BS PPO 306 [id number] [employer] BC-BS PPO 306 [id number] SP [id number] [employer] BCBS B [id number] P [id number] [employer] BCBS B [id number] S [id number] [facility] [id number] SP [id number] [facility] O [id number] S [id number] [facility] INS[facility] [id number] 18 [id number] [place]PO 302/307 [id number] SP [id number] [facility] [id number] [facility] PHY [id number] HU2 [id number] [facility] PHY [id number] SP [id number] [facility] [id number] 01 [id number] [facility] SHIELD-O/P [id number] Surgeries/Procedures Procedure Description Date Indications Data Source(s) RADIOLOGIC EXAM KNEE COMPLETE 4/MORE VIEWS 06/02/2019 12:00:00 AM EST [facility] ([facility]) Results ID Date Data Source [id number] 04/24/2020 02:39:32 PM EST [facility] - C[facility] SPEC EXP DATE 04/04/2020PATI ENT ABO/Rh O POSITIVEANTIBODY SCREEN NEGATIVETESTING SITE PERFORMED AT [address] [place] [address] Name Value Range Interpretation Code Description Data Monika rce(s) Supporting Document(s) SODIUM 139 mmol/L (136-145) [facility] - CORE POTASSIUM 3.4 mmol/L (3.6-5.2) L [facility] - CORE CHLORIDE 106 mmol/L (100-108) [facility] - CORE CO2 27 mmol/L (22-31) [facility] - CORE ANION GAP 6 mmol/L (7-16) L [facility] - CORE UREA NITROGEN 3 mg/dL (7-24) L [facility] - [facility] CREATININE 0.54 mg/dL (0.60-1.00) L [facility] - C[facility] BUN/CREAT RATIO 5.6 RATIO (10.0-20.0) L [facility] - CORE GLUCOSE 78 mg/dL (70-99) [facility] - CORE CALCIUM 8.5 mg/dL (8.4-10.2) [facility] - CORE TOTAL PROTEIN 6.2 g/dL (6.4-8.2) L [facility] - CORE ALBUMIN 3.2 g/dL (3.5-4.6) L [facility] - CORE GLOBULIN 3.0 g/dL (2.7-4.3) [facility] - CORE ALB/GLOB RATIO 1.1 RATIO [facility] - CORE ALKALINE PHOSPHATASE 85 U/L (45-117) [facility]ator [facility] - CORE BILIRUBIN,TOTAL 0.3 mg/dL (0.0-1.0) [facility] [employer] - CORE PLEASE NOTE:Total bilirubin results may be falselyelevated in patients taking Eltrombopag. AST (SGOT) 11 U/L (11-39) [facility] - CORE ALT (SGPT) 15 U/L (12-78) [facility] - CORE GFR >60 ml/min/1.73m2 (>59) [facility] - CORE GFR ( AMER) >60 ml/min/1.73m2 (>59) [facility] - CORE GFR INTERPRETATION [facility] [employer] CORE --NORMAL KIDNEY FUNCTION OR MILD DISEASE - GFR >OR= 60CHRONIC KIDNEY DISEASE - GFR 15 - 59RENAL FAILURE - GFR <15 Est. GFR calculation based on the MDRDstudy equation, which assumes a steadystate for creatinine. Est. GFR should notbe used for medication dosing. ID Date Data Source [id number] 04/01/2020 07:43:14 PM EST [facility] - CORE SPEC EXP DATE 04/04/2020PATI ENT ABO/Rh O POSITIVEANTIBODY SCREEN NEGATIVETESTING SITE PERFORMED AT [address] [place] [address] Name Value Range Interpretation Code Description Data Monika rce(s) Supporting Document(s) WBC 12.4 10*3/uL (4.1-11.0) H [facility] - CORE RBC 4.56 10*6/uL (4.00-5.40) [facility] - CORE HGB 12.8 g/dL (12.0-16.0) [facility] - C[facility] HCT 38.7 % (36.0-47.0) [facility] - C[facility] MCV 84.8 fL (80.0-95.0) [facility] - C[facility] MCH 28.1 pg (27.0-32.0) [facility] - CORE MCHC 33.1 g/dL (32.0-36.0) [facility] - C[facility] RDW 14.1 % (10.5-14.5) [facility] - CORE PLT 209 10*3/uL (150-450) [facility] - C[facility] MPV 8.6 fL (7.1-10.7) [facility] - CORE NEUT % 86.4 % (35.0-75.0) H [facility] - CORE LYMPH % 9.5 % (16.0-52.0) L [facility] - CORE MONO % 3.3 % (0.0-8.0) [facility] - CORE EOS % 0.2 % (0.0-5.0) [facility] - CORE BASO % 0.6 % (0.0-4.0) [facility] - CORE NEUT # 10.7 10*3/uL (1.8-7.7) H [facility] - CORE LYMPH # 1.2 10*3/uL (1.2-4.8) [facility] - CORE MONO # 0.4 10*3/uL (0.0-0.8) Laboratory [facility] - CORE Eosinophils [#/volume] in Blood by Automated count 0.0 10*3/uL (0.0-0 .5) Laboratory [facility] BASO # 0.1 10*3/uL (0.0-0.2) Laboratory [facility] [place] - CORE ID Date Data Source [id number] 04/01/2020 08:05:45 PM EST [facility] - CORE SPEC EXP DATE 04/04/2020PATI ENT ABO/Rh O POSITIVEANTIBODY SCREEN NEGATIVETESTING SITE PERFORMED [facility] [address] [facility] [address] Name Value Range Interpretation Code Description Data Monika rce(s) Supporting Document(s) HEPATITIS B S AG @ (NEG) Laboratory [facility] ID Date Data Source [id number] 04/01/2020 08:29:09 PM EST [facility] - CORE SPEC EXP DATE 04/04/2020PATI ENT ABO/Rh O POSITIVEANTIBODY SCREEN NEGATIVETESTING SITE PERFORMED AT [address] [facility] [address] Name Value Range Interpretation Code Description Data Monika rce(s) Supporting Document(s) TREPONEMA IGG/IGM @ (NEG) [facility] ID Date Data Source [id number] 04/01/2020 09:02:04 PM EST [facility] - CORE SPEC EXP DATE 04/04/2020PATI ENT ABO/Rh O POSITIVEANTIBODY SCREEN NEGATIVETESTING SITE PERFORMED AT [address] [facility] [address] Name Value Range Interpretation Code Description Data Mnoika rce(s) Supporting Document(s) HIV 1/2 SCREEN @ (NEG) [facility] - CORE Testing performed using Siemens [employer] taur 4th gen CHIV combo assay.This assay detects the HIV1 p24 antigenin addition to antibodies to HIV1 and HIV2. ID Date Data Source [id number] 04/02/2020 12:04:25 AM EST [facility] - CORE SPEC EXP DATE 04/04/2020PATI ENT ABO/Rh O POSITIVEANTIBODY SCREEN NEGATIVETESTING SITE PERFORMED AT [address] [facility] [address] Name Value Range Interpretation Code Description Data Monika rce(s) Supporting Document(s) ID Date Data Source [id number] 04/02/2020 03:34:53 PM EST [facility] [employer] [place] SPEC EXP DATE 04/04/2020PATI ENT ABO/Rh O POSITIVEANTIBODY SCREEN NEGATIVETESTING SITE PERFORMED AT [address] [facility] [address] Name Value Range Interpretation Code Description Data Monika rce(s) Supporting Document(s) RUBELLA IGG AB @ [facility] [employer] [facility] IgG antibody to Rubella detected. IgGan tibody levels are at a level consideredto indicate positive immunity. ID Date Data Source [id number] 04/02/2020 12:58:53 PM EST [facility] [employer] Name Value Range Interpretation Code Description Data Monika rce(s) Supporting Document(s) SPECIMEN DESCRIPTION [facility]ator [facility] C. TRACHOMATIS (NEG) Laboratory [facility] THIS ASSAY AMPLIFIES AND DETECTS TARGETD NA USING CEMENT MASON-MEDIATEDAMPLIFICATION N. GONORRHOEAE (NEG) Laboratory [facility] THIS ASSAY AMPLIFIES AND DETECTS TARGETD NA USING CEMENT MASON-MEDIATEDAMPLIFICATION ID Date Data Source [id number] 04/03/2020 07:42:32 AM EST [facility] [employer] SPECIMEN DESCRIPTION MIDSTREAM UR INE,CLEAN CATCHCULTURE RESULTS MIXED UROGENITAL MARIE; PLEASE SUBMIT A NEW SPEC IMEN IF CLINICALLY INDICATED.REPORT STATUS FINAL 04/03/2020 Name Value Range Interpretation Code Description Data Monika rce(s) Supporting Document(s) ID Date Data Source [id number] 01/29/2020 07:14:00 AM EDT [facility] ([facility] Name Value Range Interpretation Code Description Data Monika rce(s) Supporting Document(s) Choriogonadotropin.beta subunit [Moles/volume] in Serum or Plasm a 235 MIU/ML [facility] ([facility] GESTATIONAL AGE APPROXIMATE HCG RANGE (MIU/ML) - 0.2-1 WEEK 5-50 1-2 WEEKS 50-500 2-3 WEEKS 100-5,000 3-4 WEEKS 500-10,000 4-5 WEEKS 1,000-50,000 5-6 WEEKS 10,000-100,000 6-8 WEEKS 15,000-200,000 2-3 MONTHS 10,000-100,00 0 NON FEMALES LESS THAN 3.0 Patient samples may contain human heterophilic antibodies that could react with immunoassays to give falsely elevated or depressed results. This assay has been designed to minimize interference from heterophilic antibodies. Elevated hCG levels have also been associated with trophoblastic disease and nontrophoblastic neoplasms. The possibility of having these diseases should be considered before a diagnosis of is made. This test is not intended for use as a surrogate marker for aiding in the diagnosis or monitoring the treatment of cancer patients. Siemens [employer] methodology. Progesterone [Mass/volume] in Serum or Plasma 46.43 ng/mL [facility] ([facility] <content>Normal Ranges (ng/ml)</content>
<content>Females :</content>
<content>FOLLICULAR PHASE 0.15- 1.40</content>
<content>LUTEAL PHASE 3.34-25.56</content>
<content>MID-LUTEAL PHASE 4.44- 28.03</content>
<content>POST MENOPAUSAL <0.73</content>
<content></content>
<content> Females :</content>
<content>1st TRIMESTER 11.22- 90.00</content>
<content>2nd TRIMESTER 25.55- 89.40</content>
<content>3rd TRIMESTER 48.40-422.50</content>
<content></content> ID Date Data Source [id number] 01/25/2020 07:30:00 AM EDT [facility] ([facility] Name Value Range Interpretation Code Description Data Monika rce(s) Supporting Document(s) Progesterone [Mass/volume] in Serum or Plasma 44.96 ng/mL [facility] ([facility] <content>Normal Ranges (ng/ml)</content>
<content>Females :</content>
<content>FOLLICULAR PHASE 0.15- 1.40</content>
<content>LUTEAL PHASE 3.34-25.56</content>
<content>MID-LUTEAL PHASE 4.44- 28.03</content>
<content>POST MENOPAUSAL <0.73</content>
<content></content>
<content> Females :</content>
<content>1st TRIMESTER 11.22- 90.00</content>
<content>2nd TRIMESTER 25.55- 89.40</content>
<content>3rd TRIMESTER 48.40-422.50</content>
<content></content> Estradiol (E2) [Mass/volume] in Serum or Plasma 380.1 pg/mL [facility] ([facility] <content>NORMAL MENSTRUATING FEMALES:</content>
<content></content>
<content>FOLLICULAR PHASE 19.5-144.2 PG/ML</content>
<content>MID CYCLE PEAK 63.9- 356.7 PG/ML</content>
<content>LUTEAL PHASE 55.8-214.2 PG/ML</content>
<content></content>
<content>POST MENOPAUSAL FEMALES <32.2 PG/ML</content>
<content>(UNTREATED)</content>
<content></content>
<content>THE eESTRADIOL2 ASSAY IS PERFORMED ON THE [employer] BY</content>
<content>CHEMILUMINESCENCE AND SHOULD NOT BE COMPARED INTERCHANGEABLY</content>
<content>WITH OTHER METHODS.</content>
<content></content>
<content>Falsely elevated Estradiol test results can be seen in</content>
<content>patients treated with fulvestrant (Faslodex). Estradiol</content>
<content>concentrations in fulvestrant treated women should only be</content>
<content>measured by LC- MS (Liquid Chromatography-Mass Spectrometry).</content>
<content></content> ID Date Data Source [id number] 11/27/2019 07:39:00 AM EDT [facility] ([facility] Name Value Range Interpretation Code Description Data Monika rce(s) Supporting Document(s) Thyroid Stimulating Hormone 1.510 uIU/ML 0.358-3.740 [facility] Free T4 0.89 ng/dL 0.76-1.46 [facility] ([facility] ID Date Data Source [id number] 11/27/2019 07:39:00 AM EDT [facility] ([facility] Name Value Range Interpretation Code Description Data Monika rce(s) Supporting Document(s) Calcidiol [Mass/volume] in Serum or Plasma 35.5 ng/mL 30.0-100.0 [facility] ([facility] ID Date Data Source [id number] 11/27/2019 07:39:00 AM EDT [facility] ([facility] Name Value Range Interpretation Code Description Data Monika rce(s) Supporting Document(s) Cholesterol Level 220 mg/dL [facility] ([facility] Triglycerides Level 106 mg/dL [facility] ([facility] HDL Cholesterol 58 mg/dL [facility] LDL Cholesterol 141 mg/dL [facility] Cholesterol Risk Ratio 3.793 [facility] Non-HDL-C 162 mg/dL [facility] ([facility] ID Date Data Source [id number] 11/27/2019 07:39:00 AM EDT [facility] ([facility] Name Value Range Interpretation Code Description Data Monika rce(s) Supporting Document(s) Blood Urea Nitrogen 12 mg/dL 7-18 [facility] ([facility] Glucose, Fasting 91 mg/dL 70-100 [facility] Glomerular Filtration Rate Laboratory test result [facility] ([facility] <content>Units are mL/min/1.73 m2</content>
<content></content>
<content>Chronic Kidney Disease Staging per [facility]:</content>
<content></content>
<content>Stage I & II GFR >=60 Normal to Mildly Decreased</content>
<content>Stage III GFR 30- 59 Moderately Decreased</content>
<content>Stage IV GFR 15-29 Severely Decreased</content>
<content>Stage V GFR <15 Very Little GFR Left</content>
<content>ESRD GFR <15 on TIMEKEEPER</content>
<content></content> Sodium Level 140 meq/L 136-145 [facility] Creatinine For GFR 0.82 mg/dL 0.55-1.30 [facility] Carbon Dioxide Level 27 meq/L 21-32 [facility] ([facility] Chloride Level 107 meq/L 98-107 [facility] Potassium Serum 4.1 meq/L 3.5-5.1 [facility] Ast/Sgot 14 U/L 7-37 [facility] Anion Gap 6 meq/L 8-16 [facility] Calcium Level 9.1 mg/dL 8.5-10.1 [facility] Bilirubin,Total 0.5 mg/dL 0.2-1.0 [facility] Alkaline Phosphatase 71 U/L 45-117 [facility] Alt/SGPT 22 U/L 12-78 [facility] Total Protein 7.0 GM/DL 6.4-8.2 [facility] Albumin/Globulin Ratio 1.3 1.2-2.2 [facility] Albumin 4.0 GM/DL 3.2-5.2 [facility] ID Date Data Source [id number] 11/27/2019 07:39:00 AM EDT [facility] ([facility] Name Value Range Interpretation Code Description Data Monika rce(s) Supporting Document(s) White Blood Count 7.3 10 4.0-10.0 [facility] ([facility] Red Blood Count 4.87 10 4.00-5.40 [facility] Mean Corpuscular Volume 86.0 fl 80.0-96.0 M [facility] ([facility] Hemoglobin 13.3 g/dL 12.0-15.5 [facility] ([facility] Hematocrit 41.9 % 36.0-47.0 [facility] Red Cell Distribution Width 12.9 % 11.5-14.5 [facility] Mean Corpuscular HGB Conc 31.7 g/dL 32.0-36.5 [facility] Mean Corpuscular Hemoglobin 27.3 pg 27.0-33.0 [facility] Platelet Count, Automated 184 10 150-450 [facility] Neutrophils % 60.0 % 36.0-66.0 [facility] Glacier % 5.2 % 0.0-5.0 [facility] Lymph % 32.2 % 24.0-44.0 [facility] Immature Granulocyte % 0.1 % 0-3.0 [facility] Eos % 1.5 % 0.0-3.0 [facility] Baso % 1.0 % 0.0-1.0 [facility] Nucleated Red Blood Cell % 0.0 % 0-0 [facility] ([facility] Lymph # 2.3 10 1.5-5.0 [facility] ([facility] Neutrophils # 4.4 10 1.5-8.5 [facility] Glacier # 0.4 10 0.0-0.8 [facility] Eos # 0.1 10 0.0-0.5 [facility] Baso # 0.1 10 0.0-0.2 [facility] ID Date Data Source [id number] 08/22/2019 08:44:00 AM EDT [facility] Name Value Range Interpretation Code Description Data Monika rce(s) Supporting Document(s) SARS CORONAVIRUS 2 RNA [facility] This lab was ordered by [facility] and reported by [facility]. Procedure Social History Code Duration Value Status Description Data Source(s ) Smoking 11/22/2019 12:00:00 AM EDT Patient has never smoked co mpleted Patient has never smoked [facility] Vital Signs ID Date Data Source [id number] Name Value Range Interpretation Code Description Data Source(s) Diastolic blood pressure 103 mm[Hg] 103 mm[Hg] [facility] Systolic blood pressure 164 mm[Hg] 164 mm[Hg] M [facility] Diastolic blood pressure 92 mm[Hg] 92 mm[Hg] [facility] Systolic blood pressure 167 mm[Hg] 167 mm[Hg] M [facility] ([facility] Body mass index (BMI) [Ratio] 28.2 kg/m2 28.2 k g/m2 [facility] Oxygen saturation in Arterial blood by Pulse oximetry 98 % 98 % [facility] Body weight 174.75 [lb_av] 174.75 [lb_av] [facility] ([facility] Body height 66 [in_i] 66 [in_i] [facility] 5'6" Respiratory rate 16 /min 16 /min [facility] ( [facility] Body temperature 97.9 [degF] 97.9 [degF] [facility] Heart rate 71 /min 71 /min [facility] Body mass index (BMI) [Ratio] 27.1 kg/m2 27.1 k g/m2 [facility] ([facility] Body weight 168.00 [lb_av] 168.00 [lb_av] [facility] T ([facility]) Body height 66 [in_i] 66 [in_i] [facility] ([facility]) 5'6" Body temperature 98.6 [degF] 98.6 [degF] [facility] ([facility]) Body surface area 1.86 m2 1.86 m2 [facility] ([facility] Body mass index (BMI) [Ratio] 27.9 kg/m2 27.9 k g/m2 [facility] ([facility] [employer]) Body weight 170.00 [lb_av] 170.00 [lb_av] [facility] T ([facility] [employer] [facility]) Body height 65.50 [in_i] 65.50 [in_i] [facility] ([facility] [employer] [employer] [employer] [facility]) 5'5.50" Heart rate 88 /min 88 /min [facility] ([facility] [employer] [employer]) Diastolic blood pressure 90 mm[Hg] 90 mm[Hg] [facility] ([facility] [employer] [employer]) Systolic blood pressure 130 mm[Hg] 130 mm[Hg] [facility] ([facility] [employer] [employer])
[2020-06-10] MEDS ORDERED: ACET-838 PO (17:47)
[2020-06-10] MEDS ORDERED: PRENTAB9 PO (17:47)
--- OUTSIDE RECORDS SUMMARY | 2020-06-12 12:46 | CCD ---
Author Author [facility] Organization [facility] Address Unknown Phone Unavailable Care Team Providers Care Senior Operations Manager Name Role Phone Pleskach, Shameka OFFICE AUTOMATION TECHNICIAN Unavailable Unavailable Pleskach, Shameka OFFICE AUTOMATION TECHNICIAN Unavailable Unavailable Pleskach, Shameka OFFICE AUTOMATION TECHNICIAN Unavailable Unavailable Pleskach, Shameka OFFICE AUTOMATION TECHNICIAN Unavailable Unavailable Pleskach, Shameka OFFICE AUTOMATION TECHNICIAN Unavailable Unavailable Pleskach, Shameka OFFICE AUTOMATION TECHNICIAN Unavailable Unavailable Pleskach, Shameka OFFICE AUTOMATION TECHNICIAN Unavailable Unavailable Pleskach, Shameka OFFICE AUTOMATION TECHNICIAN Unavailable Unavailable Pleskach, Shameka OFFICE AUTOMATION TECHNICIAN Unavailable Unavailable Pleskach, Shamkea OFFICE AUTOMATION TECHNICIAN Unavailable Unavailable Pleskach, Shameka OFFICE AUTOMATION TECHNICIAN Unavailable Unavailable Pleskach, Shameka OFFICE AUTOMATION TECHNICIAN Unavailable Unavailable Pleskach, Shameka OFFICE AUTOMATION TECHNICIAN Unavailable Unavailable Pleskach, Shameka OFFICE AUTOMATION TECHNICIAN Unavailable Unavailable Pleskach, Shameka OFFICE AUTOMATION TECHNICIAN Unavailable Unavailable Pleskach, Shameka OFFICE AUTOMATION TECHNICIAN Unavailable Unavailable Pleskach, Shameka OFFICE AUTOMATION TECHNICIAN Unavailable Unavailable Pleskach, Shameka OFFICE AUTOMATION TECHNICIAN Unavailable Unavailable Pleskach, Shameka OFFICE AUTOMATION TECHNICIAN Unavailable Unavailable Pleskach, Shameka OFFICE AUTOMATION TECHNICIAN Unavailable Unavailable Pleskach, Shameka OFFICE AUTOMATION TECHNICIAN Unavailable Unavailable Pleskach, Shameka OFFICE AUTOMATION TECHNICIAN Unavailable Unavailable Pleskach, Shameka OFFICE AUTOMATION TECHNICIAN Unavailable Unavailable Pleskach, Shameka OFFICE AUTOMATION TECHNICIAN Unavailable Unavailable Pleskach, Shameka OFFICE AUTOMATION TECHNICIAN Unavailable Unavailable Pleskach, Shameka OFFICE AUTOMATION TECHNICIAN Unavailable Unavailable Pleskach, Shameka OFFICE AUTOMATION TECHNICIAN Unavailable Unavailable Pleskach, Shameka OFFICE AUTOMATION TECHNICIAN Unavailable Unavailable SUNDEEP MUNOZ MD Unavailable Unavailable [...] Unavailable SUNDEEP MUNOZ MD Unavailable Unavailable SUNDEEP MUONZ MD Unavailable Unavailable SUNDEEP MUNOZ MD Unavailable [...] is protected by Article 27-F of the [facility] Public Health law. If you continue you may have access to information: Regarding HIV / AIDS; Provided by facilities licensed or operated by the [facility] Office of Mental Health; or Provided by the [facility] Office for People With Developmental Disabilities. If such information is present, then the following [facility] mandated warning applies: This information has [...] law may result in a fine or fci sentence or both. A general authorization for the release of medical or other information is NOT sufficient authorization for further disc losure. Family History Family Member Name Family Member Gender Family Member Status Date o f Status Description Data Source(s) Unknown Unknown Problem [facility] ([facility]) Encounters Encounter Providers Location Date Indications Data Source(s ) Outpatient Attender: Shameka Ochoa [facility] Main Office 11/22/2019 0 3:00:00 PM EDT [facility] ([facility] Outpatient Referrer: FANTASMA MUNOZ MD 08/30/2019 05:50:00 A M EDT [facility] Outpatient Referrer: FANTASMA MUNOZ MD 08/15/2019 11:21:00 A M EDT [facility] Outpatient Referrer: FANTASMA MUNOZ MD 08/01/2019 05:54:00 A M EST [facility] Outpatient Referrer: FANTASMA MUNOZ MD 06/23/2019 06:06:00 A M EST [facility] Outpatient Referrer: FANTASMA MUNOZ MD 06/22/2019 01:43:00 P M EST [facility] Outpatient Attender: Ruben HOLDEN Physical Therapy 12:30:00 PM EST [facility] ([facility]) Outpatient Attender: JORGE RAJAN MD [facility] 09:15:00 AM EST [facility] ([facility]) Medications Medication Brand Name Start Date Product Form Dose Route Admi nistrative Instructions Pharmacy Instructions Status Indications Reaction Description Data Source(s) meloxicam 15 MG Oral Tablet Meloxicam 06/02/2019 12:00:00 AM EST ORAL active [facility] ([facility]) Prednisone 5 MG Oral Tablet Prednisone 04/14/2019 12:00:00 AM EST active [facility] ([facility]) Insurance Providers Payer name Policy type / Coverage type Policy ID Covered republican ID Covered republican's relationship to richardson Policy Richardson Plan Information [place]/307 [id number] [employer] BCBS B [id number] P YND [id number] [place] P[place] 302/307 [id number] [id number] BCBS/Excellus Commercial [id number] Family Dependent [id number] [place] PPO 302/307 [id number] [id number] [employer]CELLUS BLUE CROSS BLUE SHIELD HEA [id number] SP [id number] [employer]CELLUS BC-BS PPO 306 [id number] HU2 [id number] [employer] BC-BS PPO 306 [id number] HU2 [id number] [employer] BC-BS PPO 306 [id number] HU2 [id number] [employer] BC-BS PPO 306 [id number] HU2 [id number] [employer] BC-BS PPO 306 [id number] HU2 [id number] [employer] BC-BS PPO 306 [id number] EXCELLUS BC-BS PPO 306 [id number] SP [id number] EXCELLUS BCBS B [id number] P [id number] EXCELLUS BCBS B [id number] S [id number] [facility] [id number] SP [id number] [facility] O [id number] S [id number] [facility] [id number] 18 [id number] [place] PPO 302/307 [id number] SP [id number] [facility] [id number] 0 1 [id number] [facility] PHY [id number] [id number] [facility] PHY [id number] SP [id number] [facility] [id number] 01 [id number] [facility] SHIELD-O/P [id number] Surgeries/Procedures Procedure Description Date Indications Data Source(s) RADIOLOGIC EXAM KNEE COMPLETE 4/MORE VIEWS 06/02/2019 12:00:00 AM EST [facility] ([facility]) Results ID Date Data Source [id number] 04/24/2020 02:39:32 PM EST [facility] - CORE SPEC EXP DATE 04/04/2020PATI ENT ABO/Rh O POSITIVEANTIBODY SCREEN NEGATIVETESTING SITE PERFORMED AT [address] [place] [address] Name Value Range Interpretation Code Description Data Monika rce(s) Supporting Document(s) SODIUM 139 mmol/L (136-145) [facility] [place] [facility] [place] - CORE POTASSIUM 3.4 mmol/L (3.6-5.2) L [facility] [place] [facility] - CORE CHLORIDE 106 mmol/L (100-108) [facility] [place] [facility] - CORE CO2 27 mmol/L (22-31) [facility] [place] [facility] - CORE ANION GAP 6 mmol/L (7-16) L [facility] [place] [facility] - CORE UREA NITROGEN 3 mg/dL (7-24) L [facility] - CORE CREATININE 0.54 mg/dL (0.60-1.00) L [facility] - CORE BUN/CREAT RATIO 5.6 RATIO (10.0-20.0) L [facility] - CORE GLUCOSE 78 mg/dL (70-99) [facility] [place] [facility] - CORE CALCIUM 8.5 mg/dL (8.4-10.2) [facility] [place] [facility] - CORE TOTAL PROTEIN 6.2 g/dL (6.4-8.2) L [facility] - CORE ALBUMIN 3.2 g/dL (3.5-4.6) L [facility] [place] [facility] - CORE GLOBULIN 3.0 g/dL (2.7-4.3) [facility] [place] [facility] - CORE ALB/GLOB RATIO 1.1 RATIO [facility] - CORE ALKALINE PHOSPHATASE 85 U/L (45-117) [facility]ator [facility] [place] [facility] - CORE BILIRUBIN,TOTAL 0.3 mg/dL (0.0-1.0) [facility] - CORE PLEASE NOTE:Total bilirubin results may be falselyelevated in patients taking Eltrombopag. AST (SGOT) 11 U/L (11-39) [facility] [place] [facility] - CORE ALT (SGPT) 15 U/L (12-78) [facility] [place] [facility] - CORE GFR >60 ml/min/1.73m2 (>59) [facility] - CORE GFR ( AMER) >60 ml/min/1.73m2 (>59) [facility] [place] [facility] - CORE GFR INTERPRETATION [facility] [place] [facility] CORE --NORMAL KIDNEY FUNCTION OR MILD DISEASE - GFR >OR= 60CHRONIC KIDNEY DISEASE - GFR 15 - 59RENAL FAILURE - GFR <15 Est. GFR calculation based on the MDRDstudy equation, which assumes a steadystate for creatinine. Est. GFR should notbe used for medication dosing. ID Date Data Source [id number] 04/01/2020 07:43:14 PM EST [facility] - CORE SPEC EXP DATE 04/04/2020PATI ENT ABO/Rh O POSITIVEANTIBODY SCREEN NEGATIVETESTING SITE PERFORMED AT [address] [place] [address] Name Value Range Interpretation Code Description Data Monika rce(s) Supporting Document(s) WBC 12.4 10*3/uL (4.1-11.0) H [facility] - CORE RBC 4.56 10*6/uL (4.00-5.40) [facility] - CORE HGB 12.8 [...] - CORE MPV 8.6 fL (7.1-10.7) [facility] [place] [facility] - CORE NEUT % 86.4 % (35.0-75.0) H [facility] - CORE LYMPH % 9.5 % (16.0-52.0) L [facility] - CORE MONO % 3.3 % (0.0-8.0) [facility] [place] [facility] - CORE EOS % 0.2 % (0.0-5.0) [facility] [place] [facility] - CORE BASO % 0.6 % (0.0-4.0) [facility] [place] [facility] - CORE NEUT # 10.7 10*3/uL (1.8-7.7) H [facility] - CORE LYMPH # 1.2 10*3/uL (1.2-4.8) Laboratory [facility] - CORE MONO # 0.4 10*3/uL (0.0-0.8) Laboratory [facility] - CORE Eosinophils [#/volume] in Blood by Automated count 0.0 10*3/uL (0.0-0 .5) Laboratory [facility] BASO # 0.1 10*3/uL (0.0-0.2) Laboratory [facility] [place] - CORE ID Date Data Source [id number] 04/01/2020 08:05:45 PM EST [facility] - CORE SPEC EXP DATE 04/04/2020PATI ENT ABO/Rh O POSITIVEANTIBODY SCREEN NEGATIVETESTING SITE PERFORMED AT [address] [facility] [address] Name Value Range Interpretation Code Description Data Monika rce(s) Supporting Document(s) HEPATITIS B S AG @ (NEG) Laboratory [facility] ID Date Data Source [id number] 04/01/2020 08:29:09 PM EST [facility] - CORE SPEC EXP DATE 04/04/2020PATI ENT ABO/Rh O POSITIVEANTIBODY SCREEN NEGATIVETESTING SITE PERFORMED AT [address] [facility] [address] Name Value Range Interpretation Code Description Data Monika rce(s) Supporting Document(s) TREPONEMA IGG/IGM @ (NEG) Laboratory [facility] ID Date Data Source [id number] 04/01/2020 09:02:04 PM EST [facility] - CORE SPEC EXP DATE 04/04/2020PATI ENT ABO/Rh O POSITIVEANTIBODY SCREEN NEGATIVETESTING SITE PERFORMED AT [address] [facility] [address] Name Value Range Interpretation Code Description Data Monika rce(s) Supporting Document(s) HIV 1/2 SCREEN @ (NEG) [facility] - CORE Testing performed using Siemens ADVIADeep Glintn taur 4th gen CHIV combo assay.This assay detects the HIV1 p24 antigenin addition to antibodies to HIV1 and HIV2. ID Date Data Source [id number] 04/02/2020 12:04:25 AM EST [facility] - CORE SPEC EXP DATE 04/04/2020PATI ENT ABO/Rh O POSITIVEANTIBODY SCREEN NEGATIVETESTING SITE PERFORMED AT [address] [facility] [address] Name Value Range Interpretation Code Description Data Monika rce(s) Supporting Document(s) ID Date Data Source [id number] 04/02/2020 03:34:53 PM EST [facility] [employer] SPEC EXP DATE 04/04/2020PATI ENT ABO/Rh O POSITIVEANTIBODY SCREEN NEGATIVETESTING SITE PERFORMED AT [address] [facility] [address] Name Value Range Interpretation Code Description Data Monika rce(s) Supporting Document(s) RUBELLA IGG AB @ [facility] IgG antibody to Rubella detected. IgGan tibody levels are at a level consideredto indicate positive immunity. ID Date Data Source [id number] 04/02/2020 12:58:53 PM EST [facility] [employer] Name Value Range Interpretation Code Description Data Monika rce(s) Supporting Document(s) SPECIMEN DESCRIPTION Laborator y [place] [facility] C. TRACHOMATIS (NEG) Laboratory [facility] of [facility] THIS ASSAY AMPLIFIES AND DETECTS TARGETD NA USING EMBOSSING PRESS OPERATOR APPRENTICE-MEDIATEDAMPLIFICATION N. GONORRHOEAE (NEG) Laboratory [facility] of [facility] THIS ASSAY AMPLIFIES AND DETECTS TARGETD NA USING EMBOSSING PRESS OPERATOR APPRENTICE-MEDIATEDAMPLIFICATION ID Date Data Source [id number] 04/03/2020 07:42:32 AM EST [facility] SPECIMEN DESCRIPTION MIDSTREAM UR INE,CLEAN CATCHCULTURE RESULTS MIXED UROGENITAL MARIE; PLEASE SUBMIT A NEW SPEC IMEN IF CLINICALLY INDICATED.REPORT STATUS FINAL 04/03/2020 Name Value Range Interpretation Code Description Data Monika rce(s) Supporting Document(s) ID Date Data Source [id number] 01/29/2020 07:14:00 AM EDT [facility] ([facility] [...] monitoring the treatment of cancer patients. Siemens Dinsmore Steele methodology. Progesterone [Mass/volume] in Serum or Plasma 46.43 ng/mL [facility]OC[facility]N ([facility] <content>Normal Ranges (ng/ml)</content>
<content>Females :</content>
<content>FOLLICULAR PHASE 0.15- 1.40</content>
<content>LUTEAL PHASE 3.34-25.56</content>
<content>MID-LUTEAL PHASE 4.44- 28.03</content>
<content>POST MENOPAUSAL <0.73</content>
<content></content>
<content> Females :</content>
<content>1st TRIMESTER 11.22- 90.00</content>
<content>2nd TRIMESTER 25.55- 89.40</content>
<content>3rd TRIMESTER 48.40-422.50</content>
<content></content> ID Date Data Source [id number] 01/25/2020 07:30:00 AM EDT [facility] ([facility] [...]
<content>THE eESTRADIOL2 ASSAY IS PERFORMED ON THE [employer] BY</content>
<content>CHEMILUMINESCENCE AND SHOULD NOT BE COMPARED INTERCHANGEABLY</content>
<content>WITH OTHER METHODS.</content>
<content></content>
<content>Falsely elevated Estradiol test results can be seen in</content>
<content>patients treated with fulvestrant (Faslodex). Estradiol</content>
<content>concentrations in fulvestrant treated women should only be</content>
<content>measured by LC- MS (Liquid Chromatography-Mass Spectrometry).</content>
<content></content> ID Date Data Source [id number] 11/27/2019 07:39:00 AM EDT [facility] ([facility] Name Value Range Interpretation Code Description Data Monika rce(s) Supporting Document(s) Thyroid Stimulating Hormone 1.510 uIU/ML 0.358-3.740 [facility] ([facility] Free T4 0.89 ng/dL 0.76-1.46 [facility] ([facility] ID Date Data Source [id number] 11/27/2019 07:39:00 AM EDT [facility] ([facility] Name Value Range Interpretation Code Description Data Monika rce(s) Supporting Document(s) Calcidiol [Mass/volume] in Serum or Plasma 35.5 ng/mL 30.0-100.0 [facility] ([facility] ID Date Data Source [id number] 11/27/2019 07:39:00 AM EDT [facility] ([facility] [...] [facility] ID Date Data Source [id number] 11/27/2019 07:39:00 AM EDT [facility] ([facility] [...] Little GFR Left</content>
<content>ESRD GFR <15 on MANAGER CLINICAL APPLICATIONS</content>
<content></content> Sodium Level 140 meq/L 136-145 [facility] [...] [facility] ID Date Data Source [id number] 11/27/2019 07:39:00 AM EDT [facility] ([facility] [...] % 36.0-66.0 [facility] ([facility] [place] % 5.2 % 0.0-5.0 [facility] ([facility]ulay vazquez [...] 10 1.5-8.5 [facility] ([facility] [place] # 0.4 10 0.0-0.8 [facility] ([facility] Eos # 0.1 10 0.0-0.5 [facility] ([facility] Baso # 0.1 10 0.0-0.2 [facility] ([facility] ID Date Data Source [id number] 08/22/2019 08:44:00 AM EDT [facility] Name Value Range Interpretation Code Description Data Monika rce(s) Supporting Document(s) SARS CORONAVIRUS 2 RNA [facility] This lab was ordered by [facility] and reported by [facility]. Procedure [...] pressure 164 mm[Hg] 164 mm[Hg] M EDENT ([facility] Diastolic blood pressure 92 [...] [Ratio] 27.1 kg/m2 27.1 k g/m2 [facility] ([facility]) Body weight 168.00 [lb_av] 168.00 [lb_av] MEDEN T ([facility]) Body height 66 [in_i] 66 [in_i] [facility] ([facility]) 5'6" Body temperature 98.6 [degF] 98.6 [degF] [facility] ([facility]) Body surface area 1.86 m2 1.86 m2 [facility] ([facility]) Body mass index (BMI) [Ratio] 27.9 kg/m2 27.9 k g/m2 [facility] ([facility]) Body weight 170.00 [lb_av] 170.00 [lb_av] MEDEN T ([facility]) Body height 65.50 [in_i] 65.50 [in_i] [facility] ([facility]) 5'5.50" Heart rate 88 /min 88 /min [facility] ([facility]) Diastolic blood pressure 90 mm[Hg] 90 mm[Hg] [facility] ([facility]) Systolic blood pressure 130 mm[Hg] 130 mm[Hg] ED[facility] ([facility])
== END 2020-06-11 19:59 | disposition admitted as inpatient to this hospital (09) ==
LOC: M ED 16:23
DX: R10.30 Lower abdominal pain, unspecified (principal)

== ENCOUNTER 2020-06-10 16:49 | Outpatient (CLI) | payer BC ==
[~2020-06-10] VITALS: Ht 167.6 cm; Wt 84.8 kg
[2020-06-10 17:28] VITALS: BP 137/82
[2020-06-10] MEDS ORDERED: ACET-838 PO (17:47)
[2020-06-10] MEDS ORDERED: PRENTAB9 PO (17:47)
[2020-06-10 18:15] LABS: APPEARANCE, URINE HAZY (CLEAR); BACTERIA, URINE AUTO NEGATIVE (NEGATIVE); BILIRUBIN, URINE AUTO NEGATIVE (NEGATIVE); BLOOD, URINE BLOOD NEGATIVE (NEGATIVE); COLOR, URINE YELLOW (YELLOW); GLUCOSE, URINE (UA) AUTO NEGATIVE (NEGATIVE); KETONE, URINE AUTO 1+ mg/dL (NEGATIVE); LEUKOCYTE ESTERASE, URINE AUTO 1+ (NEGATIVE); MUCUS, URINE SMALL (NEGATIVE); NITRITE, URINE AUTO NEGATIVE (NEGATIVE); PROTEIN, URINE AUTO NEGATIVE (NEGATIVE); RBC, URINE AUTO 5 /HPF (0-3); SPECIFIC GRAVITY URINE AUTO 1.013 (1.002-1.035); SQUAMOUS EPITHELIAL CELL UR AU 5 /HPF (0-6); UROBILINOGEN, URINE AUTO 0.2 mg/dL (0.0-2.0); WBC, URINE AUTO 5 /HPF (0-3)
--- NOTE | 2020-06-10 18:26 | IPNPDOC ---
Text Note Date of Service The patient was seen on 06/10/20. NOTE Outpatient Subjective: Gladys is a 34 y/o at 23.0weeks JUAN ANTONIO 10/07/20 per patient. She receives care at [facility], & [facility] in [place]. No records present for review, will attempt to obtain, history obtained from patient. She reports having Di/Di twin via 2nd round of IVF and after several rounds of IUI, "too many to count". Presents to L&D today with a complaint of intermittent, superficial, "electrical twinges" underneath the umbilicus to the left, started earlier today. Reports frequency of urination last night. Reports active movement x2. Denies LOF, vaginal bleeding, contractions. Denies headaches, nausea/vomiting, chest pain, SOB, visual changes, epigastric pain. Started Amoxicillin 500mg TID on 05/22/20 x7 days for dental abscess. Obstetrical Hx.: SAB with D&C x1, Chemical x2; Current Di/Di Twin Medical Hx.: Endometriosis, Infertility, Non-alcoholic fatty liver disease, GERD controlled with Tums, Posterior Uterine Fibroid Surgical Hx.: Cholecystectomy 2010, Appendectomy 2002, Tonsillectomy and Adenoidectomy 2004, Breast Reduction 2011, D&C 2018, Laparoscopy 2018 Family Hx.: Mother - Endometriosis, migraines; Father-Healthy; Grandfather - diabetes and renal disease Social Hx.: , denies alcohol and drug use, non-smoker Objective: Vital Signs: Normotensive, afebrile General: Alert and oriented x3. Respiratory: Regular rate, no accessory muscle use. Abdomen: Gravid, soft, non-tender on palpation. Uterine: irritability on toco, not palpable, patient unaware of irritability. Fetus A: 145bpm, moderate variability, no decelerations, appropriate for gestational age. Fetus B: 140bpm, moderate variability, no decelerations, appropriate for gestational age, difficulty tracing due to audible movement and gestational age. Extremities: No edema, no clonus, DTRs +1, no calf tenderness. Ultrasound: See results below. Assessment: Di/Di Twin at 23.0 weeks. Reassuring Ultrasound. No placenta previa. No placenta abruption. Not in active labor. Not SROM. Plan: NST Limited OB Ultrasound for Placental previa/abruption Urinalysis and Culture Keep regular scheduled appointment for 06/14/20 with primary OB provider. Discussed normal changes in 2nd trimester including stretching of the abdomen and potential for diastasis recti. Discussed warning/danger signs to report, signs of labor, and movement expectations for gestational age. Discharge home today with precaution. VS,Fishbone, I+O VS, Fishbone, I+O PROCEDURE INFORMATION: Exam: US , Limited Exam date and time: 06/10/2020 8:02 PM Age: 34 years old Clinical indication: complicated x abdominal or pelvic pain; Left lower quadrant; Second trimester; Gestational age or lmp: 23w; ; Additional info: Llq pain, R/O abruption, placenta, presentation, magnolia TECHNIQUE: Imaging protocol: Real-time ultrasound of the maternal uterus with image documentation. Exam focused on the clinical indication. COMPARISON: TRANSVAGINAL US 07/28/2017 6:26 AM FINDINGS: Gestation: There is a living twin intrauterine . heart rate: Twin A heart rate is 122 bpm. Twin B heart rate is 147 bpm. Presentation: Twin A is in cephalic position on the left. Twin B is in variable position on the right. Placenta: Twin A placenta is anterior on the left. Twin B placenta is anterior on the right. No placenta previa or abruption. Amniotic fluid: Twin A amniotic fluid index measures 3.9 cm. Twin B amniotic fluid index measures 5.2 cm. MATERNAL: Cervix: The cervix is long and closed measuring 4.4 cm. IMPRESSION: Unremarkable living twin intrauterine . Electronically signed by: Francis Hays On 06/10/2020 21:04:45 PM LAKHWINDER ROSE CNM Jun 10, 2020 18:26
[2020-06-10 19:10] VITALS: BP 130/81
--- NOTE | 2020-06-10 21:04 | REPVR ---
PROCEDURE INFORMATION: Exam: US , Limited Exam date and time: 06/10/2020 8:02 PM Age: 34 years old Clinical indication: complicated x abdominal or pelvic pain; Left lower quadrant; Second trimester; Gestational age or lmp: 23w; ; Additional info: Llq pain, R/O abruption, placenta, presentation, magnolia TECHNIQUE: Imaging protocol: Real-time ultrasound of the maternal uterus with image documentation. Exam focused on the clinical indication. COMPARISON: TRANSVAGINAL US 07/28/2017 6:26 AM FINDINGS: Gestation: There is a living twin intrauterine . heart rate: Twin A heart rate is 122 bpm. Twin B heart rate is 147 bpm. Presentation: Twin A is in cephalic position on the left. Twin B is in variable position on the right. Placenta: Twin A placenta is anterior on the left. Twin B placenta is anterior on the right. No placenta previa or abruption. Amniotic fluid: Twin A amniotic fluid index measures 3.9 cm. Twin B amniotic fluid index measures 5.2 cm. MATERNAL: Cervix: The cervix is long and closed measuring 4.4 cm. IMPRESSION: Unremarkable living twin intrauterine . Electronically signed by: Francis Hays On 06/10/2020 21:04:45 PM
[2020-06-10 21:10] VITALS: BP 120/70
== END 2020-06-10 21:20 | disposition home or self-care (01) ==
LOC: M LDO 16:49
PROVIDERS: ATTEND Advanced Practice Midwife
DX: O26.899 Other specified pregnancy related conditions, unspecified trimester (principal); O99.612 Diseases of the digestive system complicating pregnancy, second trimester; O26.612 Liver and biliary tract disorders in pregnancy, second trimester; K75.81 Nonalcoholic steatohepatitis (NASH); O30.042 Twin pregnancy, dichorionic/diamniotic, second trimester; Z3A.23 23 weeks gestation of pregnancy; Z87.59 Personal history of other complications of pregnancy, childbirth and the puerperium
CPT/HCPCS: 76815; 81001; 87086; G0378; G0463

== ENCOUNTER 2020-07-22 18:49 | Outpatient (CLI) | payer BC ==
[~2020-07-22 18:49] MED LIST changes: +ACET-838 PO; +PRENTAB9 PO
[2020-07-22 19:16] VITALS: BP 147/89
[2020-07-22 19:32] VITALS: BP 136/84
--- NOTE | 2020-07-22 19:37 | IPNPDOC ---
Text Note Date of Service The patient was seen on 07/22/20. NOTE Subjective: Gladys is a 34-year-old female who is a at 29 weeks gestation with an JUAN ANTONIO of 10/07/20. Her is a result of IVF and she is currently with di/di twins. She is a patient of [facility] in [place]. She reports "feeling off" today. Gladys reported having breakfast this morning at 0600 and not eating or really drinking anything until after 1430. She reports she was very busy at her job today. She got concerned when she went home from work and sat down and started having what she describes as "jarred-ren contractions" every 15 minutes for over an hour along with some nausea. She states that they were not uncomfortable but they were concerning because they were regular. She called her OB in [place] who was in surgery and reports she got nervous and came in to L&D her at [facility]. She reports active movement. She denies vaginal bleeding or leaking of fluid. Since being in the department she reports only having a few contractions that were not painful and reports them as tightening. Patient was in the department for about 3 hours. 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 Twin B: FHR 135, moderate variability, positive accelerations, no decelerations. Contractions: occasional. A+O x3. Respiratory rate is regular with no use of accessory muscles. Abdomen is gravis and soft to palpation without tenderness. SVE: FT/50/-3, midposition, soft, scant amount of blood noted in fingertip from exam. Bilateral extremities with generalized edema. No pitting noted. Assessment: di/di twin at 29 weeks gestation, anemia of , not in active labor, appropriate EFM tracing on both twins. Plan: EFM. Preeclamptic labs ordered due to slightly elevated BP upon arrival to unit. All labs are normal. Cervical length ordered. Reviewed normal preeclamptic labs with patient and her cervical length. Her cervical length is 2.8-2.9 cm. Discussed findings with attending physician (Dr. Pate). He recommends that patient can be discharged as long as she is not uncomfortable and intends to follow-up with her OB in the next 1-2 days. Patient reports she has already talked with her OB and they plan on seeing her. She agrees with plan as she reports she is not having contractions. Patient discharged to home with precautions including labor precautions. Patient instructed to come back into hospital with any changes. VS,Fishbone, I+O VS, Fishbone, I+O Item Value Date Time Urine Random Creatinine 274.0 MG/DL 07/22/201958 Urine Random Total Protein 31.3 MG/DL H 07/22/201958 Item Value Date Time Creatinine 0.53 MG/DL L 07/22/201948 Glomerular Filtration Rate > 60.0 07/22/201948 Uric Acid 4.2 MG/DL 07/22/201948 Total Bilirubin 0.2 MG/DL 07/22/201948 Aspartate Amino Transf (AST/SGOT) 9 U/L 07/22/201948 Alanine Aminotransferase (ALT/SGPT) 13 U/L 07/22/201948 Lactate Dehydrogenase 133 U/L 07/22/201948 Item Value Date Time Red Blood Count 4.06 10^6/uL 07/22/201948 Hemoglobin 10.2 g/dl L 07/22/201948 Hematocrit 32.3 % L 07/22/201948 Mean Corpuscular Volume 79.6 fl L 07/22/201948 Mean Corpuscular Hemoglobin 25.1 pg L 07/22/201948 Mean Corpuscular Hemoglobin Concent 31.6 g/dl L 07/22/201948 Red Cell Distribution Width 13.8 % 07/22/201948 Platelet Count 182 10^3/uL 07/22/201948 PROCEDURE INFORMATION: Exam: US , Transvaginal Exam date and time: 07/22/2020 8:30 PM Age: 34 years old Clinical indication: Lmp or gestational age (in weeks): 29wks; Labor and delivery abnormalities; Pre-term labor; Without delivery; ; Additional info: Cervical length-di/di twin , contractions TECHNIQUE: Imaging protocol: Real-time transvaginal obstetrical ultrasound of the maternal pelvis and a first trimester with image documentation. Transvaginal imaging was used for better evaluation of the fetus, adnexa, and/or cervix. COMPARISON: US OB 06/10/2020 7:45 PM FINDINGS: Multifetal identity: Fetus A is designated as closer to the cervix. Fetus B is designated closer to the uterine fundus. Gestation: There is a twin intrauterine gestation. heart rate: Fetus A: 160 bpm. Fetus B: 150 bpm. MATERNAL: Cervix: The cervix is closed and measures 2.8 cm in length. IMPRESSION: Live twin with a closed cervix and cervical length of 2.8 cm. Electronically signed by: Gurwinder Sebastian On 07/22/2020 21:16:01 PM LAKHWINDER ROSE CNM Jul 22, 2020 19:36
[2020-07-22 20:26] LABS: ALT/SGPT 13 U/L (12-78); BILIRUBIN,TOTAL 0.2 MG/DL (0.2-1.0); CREATININE FOR GFR 0.53 MG/DL (0.55-1.30); GLOMERULAR FILTRATION RATE > 60.0 (>60); LDH LACTATE DEHYDROGENASE 133 U/L (84-246); URIC ACID 4.2 MG/DL (2.6-6.0)
[2020-07-22 20:31] LABS: HEMATOCRIT 32.3 % (36.0-47.0); HEMOGLOBIN 10.2 g/dl (12.0-15.5); MEAN CORPUSCULAR HEMOGLOBIN 25.1 pg (27.0-33.0); MEAN CORPUSCULAR HGB CONC 31.6 g/dl (32.0-36.5); MEAN CORPUSCULAR VOLUME 79.6 fl (80.0-96.0); PLATELET COUNT, AUTOMATED 182 10^3/uL (150-450); RED BLOOD COUNT 4.06 10^6/uL (4.00-5.40)
[2020-07-22 20:44] LABS: TOTAL PROTEIN,RANDOM URINE 31.3 MG/DL (0.0-12.0)
--- NOTE | 2020-07-22 21:15 | REPVR ---
PROCEDURE INFORMATION: Exam: US , Transvaginal Exam date and time: 07/22/2020 8:30 PM Age: 34 years old Clinical indication: Lmp or gestational age (in weeks): 29wks; Labor and delivery abnormalities; Pre-term labor; Without delivery; ; Additional info: Cervical length-di/di twin , contractions TECHNIQUE: Imaging protocol: Real-time transvaginal obstetrical ultrasound of the maternal pelvis and a first trimester with image documentation. Transvaginal imaging was used for better evaluation of the fetus, adnexa, and/or cervix. COMPARISON: US OB 06/10/2020 7:45 PM FINDINGS: Multifetal identity: Fetus A is designated as closer to the cervix. Fetus B is designated closer to the uterine fundus. Gestation: There is a twin intrauterine gestation. heart rate: Fetus A: 160 bpm. Fetus B: 150 bpm. MATERNAL: Cervix: The cervix is closed and measures 2.8 cm in length. IMPRESSION: Live twin with a closed cervix and cervical length of 2.8 cm. Electronically signed by: Gurwinder Sebastian On 07/22/2020 21:16:01 PM
== END 2020-07-22 21:40 | disposition home or self-care (01) ==
LOC: M LDO 18:49
PROVIDERS: ATTEND Advanced Practice Midwife
DX: O09.813 Supervision of pregnancy resulting from assisted reproductive technology, third trimester (principal); O30.043 Twin pregnancy, dichorionic/diamniotic, third trimester; Z3A.29 29 weeks gestation of pregnancy
CPT/HCPCS: 36415; 76817; 82247; 82565; 82570; 83615; 84156; 84450; 84460; 84550; 85027; G0378; G0463

== ENCOUNTER → 2020-12-09 | Outpatient (CLI) | payer BC ==
[~2020-12-09] MED LIST changes: -ACET-838 PO; +ACET32TAB PO
[2020-12-09 15:57] LABS: BASO # 0.1 10^3/uL (0.0-0.2); BASO % 0.7 % (0.0-1.0); EOS # 0.1 10^3/uL (0.0-0.5); EOS % 0.6 % (0.0-3.0); HEMATOCRIT 40.2 % (36.0-47.0); HEMOGLOBIN 12.1 g/dl (12.0-15.5); LYMPH # 2.8 10^3/uL (1.5-5.0); LYMPH % 32.7 % (24.0-44.0); MEAN CORPUSCULAR HEMOGLOBIN 23.5 pg (27.0-33.0); MEAN CORPUSCULAR HGB CONC 30.1 g/dl (32.0-36.5); MEAN CORPUSCULAR VOLUME 78.1 fl (80.0-96.0); MONO # 0.4 10^3/uL (0.0-0.8); MONO % 4.6 % (2.0-8.0); NEUTROPHILS # 5.2 10^3/uL (1.5-8.5); NEUTROPHILS % 61.2 % (36.0-66.0); PLATELET COUNT, AUTOMATED 249 10^3/uL (150-450); RED BLOOD COUNT 5.15 10^6/uL (4.00-5.40); WHITE BLOOD COUNT 8.5 10^3/uL (4.0-10.0)
[2020-12-09 16:25] LABS: ALBUMIN 4.2 GM/DL (3.2-5.2); ALT/SGPT 25 U/L (12-78); BILIRUBIN,TOTAL 0.3 MG/DL (0.2-1.0); BLOOD UREA NITROGEN 14 MG/DL (7-18); C REACTIVE PROTEIN QUANTITATIV 1.04 MG/DL (0.00-0.30); CALCIUM LEVEL 8.8 MG/DL (8.5-10.1); CARBON DIOXIDE LEVEL 27 MEQ/L (21-32); CHLORIDE LEVEL 107 MEQ/L (98-107); CHOLESTEROL LEVEL 200 MG/DL (<200); CHOLESTEROL RISK RATIO 3.921 (<5); CREATININE FOR GFR 0.81 MG/DL (0.55-1.30); GLOMERULAR FILTRATION RATE > 60.0 (>60); GLUCOSE, FASTING 83 MG/DL (70-100); HDL CHOLESTEROL 51 MG/DL (>40); LDL CHOLESTEROL 129 MG/DL (<100); NON-HDL-C 149 MG/DL; RHEUMATOID FACTOR QUANT < 10.0 IU/ML (<15.0); SODIUM LEVEL 141 MEQ/L (136-145); TOTAL PROTEIN 7.3 GM/DL (6.4-8.2); TRIGLYCERIDES LEVEL 101 MG/DL (<150)
== END ==
LOC: M WUC 12:11
PROVIDERS: ATTEND Nurse Practitioner Family
DX: Z00.00 Encounter for general adult medical examination without abnormal findings (principal); M12.9 Arthropathy, unspecified

== ENCOUNTER → 2021-01-29 | Outpatient (CLI) | payer BC | LOC: M WUC 09:29 | PROVIDERS: ATTEND Student in an Organized Health Care Education/Training Program | DX: N92.6 Irregular menstruation, unspecified (principal) ==

== ENCOUNTER 2021-04-02 04:44 | Emergency (ER) | payer BC ==
[~2021-04-02] VITALS: Ht 167.6 cm; Wt 81.8 kg
[~2021-04-02 04:44] MED LIST changes: -ESTR2TAB2 PO; +ESTR2TAB3 PO
--- OUTSIDE RECORDS SUMMARY | 2021-04-02 04:53 | CCD | Continuity of Care Document ---
Author Author Gladys ROQUE PA-C Organization Unknown Address [address] [place] [address] Phone [phone] Care Team Providers Care Cutter Banana Room Name Role Phone Shameka Ochoa COMMUNICATIONS ASSOCIATE AUTM [phone] Problems Description No Information Available Social History Type Date Description Comments Sex Unknown ETOH Use Occasionally consumes alcohol Tobacco Use Start: Unknown Patient has never smoked Allergies, Adverse Reactions, Alerts Description No Known Drug Allergies Medications Active Medications SIG Qnty Indications Ordering Provide r Date Meloxicam 15mg Tablets 1 by mouth every day with food or milk, Last Refill(Patient Needs To Make An Appt) 30tabs S83.412A Jayla Vasquez MD 06/02/2019 Tacrolimus 0.5mg Capsules Unknown Plaquenil 200mg Tablets take one tablets by mouth every day Unknown Aspirin 81mg Tablets DR 1 by mouth every day Unknown Prednisone 5mg Tablets Unknown Vitamin Tablets Unknown Vitamin D3 10mcg (400 Unit) Tablet s 1 by mouth every day Unknown Immunizations Description No Information Available Vital Signs Date Vital Result Comment 01/29/2021 8:41am Body Temperature 97.1 F Height 65.5 inches 5'5.50" Weight 178.50 lb BMI (Body Mass Index) 29.2 kg/m2 06/02/2019 1:55pm Body Temperature 98.6 F Height 66 inches 5'6" Weight 168.00 lb BMI (Body Mass Index) 27.1 kg/m2 Results Description No Information Available Procedures Date Code Description Status 01/29/2021 52206 Office/Outpatient Established Mo d MDM 30-39 Min Completed 01/29/2021 33974 X-Ray Shoulder Complete Complete d Medical Devices Description No Information Available Encounters Type Date Location Provider Dx Diagnosis Office Visit 01/29/2021 8:[facility]a [facility] M19.011 Primary osteoarthritis, 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 Assessments Date Code Description Provider 01/29/2021 M19.011 Primary osteoarthritis, right sh chuck Zulay Roque PA-C 01/29/2021 M75.31 Calcific tendinitis of right ceasar ulder Zulay Roque PA-C Plan of Treatment 01/29/2021 - Zulay Roque PA-C* M19.011 Primary osteoarthritis, right shoulder * M75.31 Calcific tendinitis of right shoulder* New Xrays:* MRI Arthrogram RT Shoulder, Ordered: 01/29/21 * Follow up:* after rt shoulder arthrogram results w/KLF Functional Status Description No Information Available Mental Status Description No Information Available Referrals Description No Information Available
--- OUTSIDE RECORDS SUMMARY | 2021-04-02 04:53 | CCD | Continuity of Care Document ---
Author Author Gladys ACEVEDO Organization Unknown Address [address] [place] [address] [place] [address] Phone [phone] Care Team Providers Care Tree Deadener Name Role Phone Shameka OchoaM [phone] Problems Description No Information Available Social History Type Date Description Comments Sex Unknown ETOH Use Rarely consumes alcohol Tobacco Use Start: Unknown Patient has never smoked Allergies, Adverse Reactions, Alerts Description No Known Drug Allergies Medications Active Medications SIG Qnty Indications Ordering Provide r Date Mvi Unknown Tylenol Extra Strength 500mg Table ts take two tablets this am Unknown Delsym Unknown Immunizations Description No Information Available Vital Signs Date Vital Result Comment 08/13/2018 8:24am BP Systolic 132 mmHg BP Diastolic 85 mmHg Heart Rate 108 /min Respiratory Rate 20 /min O2 % BldC Oximetry 96 % Body Temperature 98.9 F Weight 176.00 lb Height 66 inches 5'6" BMI (Body Mass Index) 28.4 kg/m2 Pain Level 2 Results Description No Information Available Procedures Description No Information Available Medical Devices Description No Information Available Encounters Description No Information Available Assessments Date Code Description Provider 02/16/2021 Z20.828 Contact with and (rivera spected) exposure to other viral communicable diseases ADINA Ochoa 02/14/2021 Z20.828 Contact with and (rivera spected) exposure to other viral communicable diseases ADINA Ochoa Plan of Treatment No Information Available Functional Status Description No Information Available Mental Status Description No Information Available Referrals Description No Information Available
--- OUTSIDE RECORDS SUMMARY | 2021-04-02 04:53 | CCD | Continuity of Care Document ---
Author Author Gladys ACEVEDO Organization Unknown Address [address] [place] [address] [place] [address] Phone [phone] Care Team Providers Care Voice Professor Name Role Phone Shameka OchoaM [phone] Problems Description No Information Available Social History [...] Information Available Assessments Date Code Description Provider 02/14/2021 Z20.828 Contact with and (rivera spected) exposure to other viral communicable diseases ADINA Ochoa Plan of Treatment No Information Available Functional Status Description No Information Available Mental Status Description No Information Available Referrals Description No Information Available
--- OUTSIDE RECORDS SUMMARY | 2021-04-02 04:53 | CCD | Continuity of Care Document ---
Author Author Gladys ACEVEDO Organization Unknown Address [address] [place] [address] [place] [address] Phone [phone] Care Team Providers Care Band Nailer Name Role Phone Shameka OchoaM [phone] Problems Description No Information Available Social History [...]
--- OUTSIDE RECORDS SUMMARY | 2021-04-02 04:53 | CCD | Continuity of Care Document ---
Author Author Gladys ACEVEDO MA Organization Unknown Address [address] [place] [address] [place] [address] Phone [phone] Care Team Providers Care Square Cutter Name Role Phone Shameka OchoaM [phone] Problems Description No Information Available Social History [...] Available Encounters Description No Information Available Assessments Description No Information Available Plan of Treatment No Information Available Functional Status Description No Information Available Mental Status Description No Information Available Referrals Description No Information Available
--- OUTSIDE RECORDS SUMMARY | 2021-04-02 04:54 | CCD ---
Author Author [facility] Organization [facility] Address Unknown Phone Unavailable Care Team Providers Care Portable Track Line Marker Name Role Phone Rivera Funge Zulay PORTILLO, PA-C Unavailable Unavailabl e FishNohemy, PA-C Unavailable Unavailabl e Fish, Nohemy Biswas [facility] Unavailable Unavailabl e Fish, Nohemy Biswas [facility], [facility]-C Unavailable Unavailabl e FishRiverae Zulay [facility], [facility] Unavailable Unavailabl e FishRiverae Zulay [facility], [facility]C Unavailable Unavailabl e FishRiverae Zulay [facility], [facility]-C Unavailable Unavailabl e Fish, Nohemy Zulay [facility], [facility]C Unavailable Unavailabl e Fish, Nohemy Zulay PORTILLO, PA-C Unavailable Unavailabl e FishRiverae Zulay [facility], [facility]-C Unavailable Unavailabl e FishNohemy, PA-C Unavailable Unavailabl e Fish, Nohemy Zulay [facility], [facility]-C Unavailable Unavailabl e Fish, [facility], PA-C Unavailable Unavailabl e Fish, [facility], PA-C Unavailable Unavailabl e Fish, [facility], PA-C Unavailable Unavailabl e Fish, [facility], PA-C Unavailable Unavailabl e Fish, [facility], PA-C Unavailable Unavailabl e Fish, [facility], PA-C Unavailable Unavailabl e Fish, [facility], PA-C Unavailable Unavailabl e Fish, [facility], PA-C Unavailable Unavailabl e Fish, [facility], PA-C Unavailable Unavailabl e Fish, [facility], PA-C Unavailable Unavailabl e Fish, [facility], PA-C Unavailable Unavailabl e Fish, [facility], PA-C Unavailable Unavailabl e Fish, [facility], PA-C Unavailable Unavailabl e Fish, [facility], PA-C Unavailable Unavailabl e Fish, [facility], PA-C Unavailable Unavailabl e Fish, [facility], PA-C Unavailable Unavailabl e Fish, [facility], PA-C Unavailable Unavailabl e Fish, [facility], PA-C Unavailable Unavailabl e Fish, [facility], PA-C Unavailable Unavailabl e Fish, [facility], PA-C Unavailable Unavailabl e Fish, [facility], PA-C Unavailable Unavailabl e Fish, [facility], PA-C Unavailable Unavailabl e Fish, [facility], PA-C Unavailable Unavailabl e Fish, [facility], PA-C Unavailable Unavailabl e Maile BEARD MD Unavailable Unavailable Maile BEARD MD Unavailable Unavailable Maile BEARD MD Unavailable Unavailable Maile BEARD MD Unavailable Unavailable Maile BEARD MD Unavailable Unavailable Maile BEARD MD Unavailable Unavailable Maile BEARD MD Unavailable Unavailable Maile BEARD MD Unavailable Unavailable Maile BEARD MD Unavailable Unavailable Maile BEARD MD Unavailable Unavailable Maile BEARD MD Unavailable Unavailable DUCMaile Quintero MD Unavailable Unavailable DUCA, L XIMENA MD Unavailable Unavailable DUCA, L XIMENA MD Unavailable Unavailable DUCA, L XIMENA MD Unavailable Unavailable DUCA, L XIMENA MD Unavailable Unavailable DUCA, L XIMENA MD Unavailable Unavailable DUCA, L XIMENA MD Unavailable Unavailable DUCA, L XIMENA MD Unavailable Unavailable DUCA, L XIMENA MD Unavailable Unavailable DUCA, L XIMENA MD Unavailable Unavailable DUCA, L XIMENA MD Unavailable Unavailable DUCA, L XIMENA MD Unavailable Unavailable DUCA, L XIMENA MD Unavailable Unavailable DUCA, L XIMENA MD Unavailable Unavailable DUCA, L XIMENA MD Unavailable Unavailable Carmelita WEAVER MD Unavailable Unavailable Carmelita WEAVER MD Unavailable Unavailable Carmelita WEAVER MD Unavailable Unavailable Carmelita WEAVER MD Unavailable Unavailable Carmelita WEAVER MD Unavailable Unavailable Carmelita WEAVER MD Unavailable Unavailable Carmelita WEAVER MD Unavailable Unavailable Carmelita WEAVER MD Unavailable Unavailable Carmelita WEAVER MD Unavailable Unavailable Pleskach, Shameka ARTIFACT[employer] CONSERVATOR Unavailable Unavailable Pleskach, Shameka ARTIFACTS CONSERVATOR Unavailable Unavailable Pleskach, Shameka ARTIFACTS CONSERVATOR Unavailable Unavailable Pleskach, Shameka ARTIFACTS CONSERVATOR Unavailable Unavailable Pleskach, Shameka ARTIFACTS CONSERVATOR Unavailable Unavailable Pleskach, Shameka ARTIFACTS CONSERVATOR Unavailable Unavailable Pleskach, Shameka ARTIFACTS CONSERVATOR Unavailable Unavailable Pleskach, Shameka ARTIFACTS CONSERVATOR Unavailable Unavailable Pleskach, Shameka ARTIFACTS CONSERVATOR Unavailable Unavailable Pleskach, Shameka ARTIFACTS CONSERVATOR Unavailable Unavailable Pleskach, Shameka ARTIFACTS CONSERVATOR Unavailable Unavailable Pleskach, Shameka ARTIFACTS CONSERVATOR Unavailable Unavailable Pleskach, Shameka ARTIFACTS CONSERVATOR Unavailable Unavailable Pleskach, Shameka ARTIFACTS CONSERVATOR Unavailable Unavailable Pleskach, Shameka ARTIFACTS CONSERVATOR Unavailable Unavailable Pleskach, Shameka ARTIFACTS CONSERVATOR Unavailable Unavailable Pleskach, Shameka ARTIFACTS CONSERVATOR Unavailable Unavailable Pleskach, Shameka ARTIFACTS CONSERVATOR Unavailable Unavailable Pleskach, Shameka ARTIFACTS CONSERVATOR Unavailable Unavailable Pleskach, Shameka ARTIFACTS CONSERVATOR Unavailable Unavailable Pleskach, Shameka ARTIFACTS CONSERVATOR Unavailable Unavailable Pleskach, Shameka ARTIFACTS CONSERVATOR Unavailable Unavailable Pleskach, Shameka ARTIFACTS CONSERVATOR Unavailable Unavailable Pleskach, Shameka ARTIFACTS CONSERVATOR Unavailable Unavailable Pleskach, Shameka ARTIFACTS CONSERVATOR Unavailable Unavailable Pleskach, Shameka ARTIFACTS CONSERVATOR Unavailable Unavailable Pleskach, Shameka ARTIFACTS CONSERVATOR Unavailable Unavailable Pleskach, Shameka ARTIFACTS CONSERVATOR Unavailable Unavailable Pleskach, Shameka ARTIFACTS CONSERVATOR Unavailable Unavailable Pleskach, Shameka ARTIFACTS CONSERVATOR Unavailable Unavailable Pleskach, Shameka ARTIFACTS CONSERVATOR Unavailable Unavailable Pleskach, Shameka ARTIFACTS CONSERVATOR Unavailable Unavailable Pleskach, Shameka ARTIFACTS CONSERVATOR Unavailable Unavailable Pleskach, Shameka ARTIFACTS CONSERVATOR Unavailable Unavailable Pleskach, Shameka ARTIFACTS CONSERVATOR Unavailable Unavailable Pleskach, Shameka ARTIFACTS CONSERVATOR Unavailable Unavailable Pleskach, Shameka ARTIFACTS CONSERVATOR Unavailable Unavailable Pleskach, Shameka ARTIFACTS CONSERVATOR Unavailable Unavailable Pleskach, Shameka ARTIFACTS CONSERVATOR Unavailable Unavailable Pleskach, Shameka ARTIFACTS CONSERVATOR Unavailable Unavailable Pleskach, Shameka ARTIFACTS CONSERVATOR Unavailable Unavailable Pleskach, Shameka ARTIFACTS CONSERVATOR Unavailable Unavailable Pleskach, Shameka ARTIFACTS CONSERVATOR Unavailable Unavailable Pleskach, Shameka ARTIFACTS CONSERVATOR Unavailable Unavailable ANA, HORACE . Unavailable Unavailable ANA, HORACE . Unavailable Unavailable Carmelita WEAVER MD Unavailable Unavailable HILL, K PHILIP LYLE Unavailable Unavailable HILL, K PHILIP MD Unavailable Unavailable HILL, K PHILIP MD Unavailable Unavailable HILL, K PHILIP MD Unavailable Unavailable HILL, K PHILIP MD Unavailable Unavailable HILL, K PHILIP MD Unavailable Unavailable HILL, K PHILIP MD Unavailable Unavailable HILL, K PHILIP MD Unavailable Unavailable Re-disclosure Warning The records that [...] is protected by Article 27-F of the [facility] Public Health law. If you continue you may have access to information: Regarding HIV / AIDS; Provided by facilities licensed or operated by the [facility] Office of Mental Health; or Provided by the [facility] Office for People With Developmental Disabilities. If such information is present, then the following [facility] mandated warning applies: This information has [...] law may result in a fine or penitentiary sentence or both. A general authorization for the release of medical or other information is NOT sufficient authorization for further disc losure. Family History Family Member Name Family Member Gender Family Member Status Date o f Status Description Data Source(s) Unknown Unknown Problem [facility] ([facility]) Encounters Encounter Providers Location Date Indications Data Source(s ) Outpatient Attender: DAGO LevyC Physical Therapy 01/29/2021 08:45:00 AM EDT [facility] ([facility]) Outpatient Attender: Shameka Ochoa [facility] Main Office 11/22/2020 1 1:15:00 AM EDT [facility] ([facility] Inpatient Attender: XIMENA BEARD MD 08/23/2020 06:01:43 PM EDT [facility] [place] [facility] Inpatient Attender: HORACE PEREZ .Admitter: HORACE PHILLIPS IN . 08/23/2020 04:19:00 PM EDT - 08/31/2020 01:54:00 PM EDT [facility] Patient discharged. Outpatient Attender: PHILIP WEAVER MD 07/25/2020 10:02:[address] [facility] [place] [facility] Outpatient Attender: PHILIP WEAVER MDAdmitter: PHILIP WEAVER MD 07/25/2020 07:49:00 AM EST - 07/25/2020 11:51:00 AM EST [facility] VAGINAL BLEEDING Patient discharged. Immunizations Vaccine Date Status Description Data Source(s) Covid-19 Ant & Ant 09/05/2020 12:00:00 AM EDT completed [facility] ([facility] COVID-19 VACCINE Hasmukh 09/05/2020 12:00:00 AM EDT completed NYSIIS Vaccine Series Complete: YESThis Data wa s Submitted to [facility] Via [employer]. Medications Medication Brand Name Start Date Product Form Dose Route Admi nistrative Instructions Pharmacy Instructions Status Indications Reaction Description Data Source(s) Loseasonique Loseasonique 11/22/2020 12:00:00 AM EDT ORAL active [facility] ([facility] Insurance Providers Payer name Policy type / Coverage type Policy ID Covered democrat ID Covered democrat's relationship to brown Policy Brown Plan Information [place]/307 [id number] [id number] [place] [employer]-BS PPO 306 [id number] HU2 [id number] [employer]-BS PPO 306 [id number] [id number] [employer]-BS PPO 306 [id number] HU2 [id number] [employer] BC-BS PPO 306 [id number] HU2 [id number] [employer] BC-BS PPO 306 [id number] HU2 [id number] [place] [place] PPO 302/307 [id number] [id number] EXCELL[place] H [id number] Spouse [id number] [facility] [id number] SP [id number] [facility] O [id number] S [id number] [facility]- [id number] 18 [id number] [place] [place] PPO 302/307 [id number] SP [id number] [employer] -CLINIC [id number] 1 [id number] [id number] 2 [id number] [facility] [id number] SP [id number] [facility] [id number] 01 [id number] [employer] [place] PPO 302/307 [id number] 2 [id number] BL[employer] BLUE SHIELD-O/P [id number] 18 [id number] [employer] BL[employer] SHIELD HEA [id number] SP [id number] [employer] BCBS B [id number] P [id number] BCBS[employer] Commercial [id number] Family Dependent [id number] [employer] BC-BS PPO 306 [id number] [employer] BC-BS PPO 306 [id number] SP [id number] [employer] BCBS B [id number] P [id number] [employer] BCBS B [id number] S [id number] Problems, Conditions, and Diagnoses No Information Surgeries/Procedures Procedure Description Date Indications Data Source(s) RADEX SHOULDER COMPLETE MINIMUM 2 VIEWS 01/29/2021 12: 00:00 AM EDT [facility] ([facility] OFFICE OUTPATIENT VISIT 25 MINUTES 01/29/2021 12:00:00 AM EDT [facility] ([facility] OFFICE OUTPATIENT VISIT 15 MINUTES 11/22/2020 12:00:00 AM EDT [facility] ([facility] PERIODIC PREVENTIVE MED EST PATIENT 18-39 YRS 11/23/19 12:00:00 AM EDT [facility] ([facility] Results ID Date Data Source [id number] 02/16/2021 12:00:00 AM EDT [facility] Name Value Range Interpretation Code Description Data Monika rce(s) Supporting Document(s) SARS-CoV2 Rapid Antigen Negative [facility]IAOH This lab was reported by [facility]. ID Date Data Source [id number] 02/14/2021 12:00:00 AM EDT [facility] Name Value Range Interpretation Code Description Data Monika rce(s) Supporting Document(s) SARS-CoV2 Rapid Antigen Negative NYSDAZ This lab was reported by [facility]. ID Date Data Source [id number] 12/26/2020 07:24:36 PM EDT Laboratory [facility] of [facility] - CORE SPEC EXP DATE 04/04/2020PATI ENT ABO/Rh O POSITIVEANTIBODY SCREEN NEGATIVETESTING SITE PERFORMED AT [address] [place] [address] Name Value Range Interpretation Code Description Data Monika rce(s) Supporting Document(s) WBC 8.3 10*3/uL (4.1-11.0) H Laboratory [facility] [place] - CORE RBC 5.17 10*6/uL (4.00-5.40) L Laboratory [facility] [facility] [place] - CORE HGB 12.6 g/dL (12.0-16.0) L [facility] [place] - CORE HCT 39.0 % (36.0-47.0) L [facility] [place] - CORE MCV 75.6 fL (80.0-95.0) L [facility] [place] - CORE MCH 24.3 pg (27.0-32.0) L [facility] [place] - CORE MCHC 32.2 g/dL (32.0-36.0) L [facility] [place] - CORE RDW 16.8 % (10.5-14.5) H [facility] [place] - CORE PLT 203 10*3/uL (150-450) [facility] [place] - CORE MPV 9.6 fL (7.1-10.7) [facility] [place] [facility] [place] - CORE NEUT % 68.3 % (35.0-75.0) H [facility] [place] - CORE LYMPH % 26.1 % (16.0-52.0) L [facility] [place] - CORE MONO % 4.1 % (0.0-8.0) [facility] [place] [facility] [place] - CORE EOS % 0.6 % (0.0-5.0) [facility] [place] [facility] [place] - CORE BASO % 0.9 % (0.0-4.0) [facility] [place] [facility] [place] - CORE NEUT # 5.7 10*3/uL (1.8-7.7) H [facility] [place] - CORE LYMPH # 2.2 10*3/uL (1.2-4.8) [facility] [place] - CORE MONO # 0.3 10*3/uL (0.0-0.8) [facility] [place] - CORE Eosinophils [#/volume] in Blood by Automated count 0.0 10*3/uL (0.0-0 .5) [facility] [place] [facility] [place] - CORE BASO # 0.1 10*3/uL (0.0-0.2) Laboratory [facility] ID Date Data Source 12/26/2020 07:42:55 PM EDT Laboratory Al [facility] of [place] - CORE SPEC EXP DATE 04/04/2020PATI ENT ABO/Rh O POSITIVEANTIBODY SCREEN NEGATIVETESTING SITE PERFORMED [facility] [address] [facility] [address] Name Value Range Interpretation Code Description Data Monika rce(s) Supporting Document(s) DHEA SULFATE @ 18 ug/dL (32-270) L Laboratory Alex ance of [facility] ID Date Data Source 12/26/2020 07:42:55 PM EDT Laboratory [facility] of [place] - CORE SPEC EXP DATE 04/04/2020PATI ENT ABO/Rh O POSITIVEANTIBODY SCREEN NEGATIVETESTING SITE PERFORMED AT [address] [facility] [address] Name Value Range Interpretation Code Description Data Monika rce(s) Supporting Document(s) SEX HORM BIND GLOB @ 74 nmol/L Laborator y [place] [facility] Adult Female Reference Range:Premenopaus al: >11 nmol/LPostmenopausal: 24-159 nmol/L ID Date Data Source 12/26/2020 07:52:17 PM EDT Laboratory [facility] of [place] - CORE SPEC EXP DATE 04/04/2020PATI ENT ABO/Rh O POSITIVEANTIBODY SCREEN NEGATIVETESTING SITE PERFORMED AT [address] [facility] [address] Name Value Range Interpretation Code Description Data Monika rce(s) Supporting Document(s) PROLACTIN @ 8.7 ng/mL Laboratory Allian e of [facility] Prolactin Reference Range:Males 2.5 - 17.4 ng/mLFemales Non- 2.2 - 30.3 ng/mL 8.1 - 347.6 ng/mL Postmenopausal 0.7 - 31.5 ng/mL ID Date Data Source 12/26/2020 07:52:17 PM EDT Laboratory [facility] of [employer] - CORE SPEC EXP DATE 04/04/2020PATI ENT ABO/Rh O POSITIVEANTIBODY SCREEN NEGATIVETESTING SITE PERFORMED AT [address] [facility] [address] Name Value Range Interpretation Code Description Data Monika rce(s) Supporting Document(s) FREE THYROXINE @ 0.90 ng/dL (0.76-1.46) Laboratory [facility] ID Date Data Source [id number] 12/26/2020 07:52:17 PM EDT Laboratory [facility] [employer] SPEC EXP DATE 04/04/2020PATI ENT ABO/Rh O POSITIVEANTIBODY SCREEN NEGATIVETESTING SITE PERFORMED AT [address] [facility] [address] Name Value Range Interpretation Code Description Data Monika rce(s) Supporting Document(s) TSH,ULTRASENSITIVE @ 0.716 mIU/L (0.360-4.170) Laboratory [facility] ID Date Data Source [id number] 12/29/2020 01:56:29 PM EDT Laboratory [facility] of [facility] SPEC EXP DATE 04/04/2020[facility] ABO/Rh O POSITIVEANTIBODY SCREEN NEGATIVETESTING SITE PERFORMED AT [address] [facility] [address] Name Value Range Interpretation Code Description Data Monika rce(s) Supporting Document(s) TESTOSTERONE 9 [facility] Reference range: 9 to 55Unit: ng/dL Tota l Testosterone, Females 18 years and older Premenopausal 9-55 ng/dL Postmenopausal 5-32 ng/dL Total testosterone values may not reflect optimal concentrations in all individuals. Free or bioavailable testosterone measurements may provide supportive information. REFERENCE INTERVAL: Testosterone, LC-MS/MS Access complete set of age- and/or gender-specific reference intervals for this test in the [facility] Test Directory ([employer]). This test was developed and its performance characteristics determined by [employer]. It has not been cleared or approved by the [place] Food and Drug Administration. This test was performed in a CLIA certified laboratory and is intended for clinical purposes. Performed By: [employer] [address] [place] [address] Web [employer] Analyst: Ana Cristina Lundberg MD ID Date Data Source [id number] 12/30/2020 01:02:58 PM EDT Laboratory [facility] SPEC EXP DATE 04/04/2020PATI ENT ABO/Rh O POSITIVEANTIBODY SCREEN NEGATIVETESTING SITE PERFORMED AT [address] [facility] [address] Name Value Range Interpretation Code Description Data Monika rce(s) Supporting Document(s) 17 OH PROGESTERONE 15.32 Laboratory [place] [facility] Reference range: <=206.00Unit: ng/dL INT ERPRETIVE INFORMATION for 17- Hydroxyprogesterone in females: Follicular 15 to 70 ng/dL Luteal 35 to 290 ng/dL REFERENCE INTERVAL: 17- Hydroxyprogesterone Qnt, HPLC-MS/MS Access complete set of age- and/or gender- specific reference intervals for this test in the [facility] Test Directory ([employer]). This test was developed and its performance characteristics determined by [employer]. It has not been cleared or approved by the US Food and Drug Administration. This test was performed in a CLIA certified laboratory and is intended for clinical purposes. Performed By: [employer] [address] [place] [address] [employer] Analyst: Ana Cristina Lundberg MD ID Date Data Source [id number] 07/23/2020 01:21:02 PM EST Laboratory Al [facility] of [facility] SPEC EXP DATE 04/04/2020PATI ENT ABO/Rh O POSITIVEANTIBODY SCREEN NEGATIVETESTING SITE PERFORMED AT [address] [place] [address] Name Value Range Interpretation Code Description Data Monika rce(s) Supporting Document(s) PROTEIN,URINE 16 mg/dL Laboratory Allia n[facility] of [facility] URINE PROTEIN MAY BE FALSELY ELEVATEDDUR ING TREATMENT WITH AMINOGLYCOSIDESDUE TO METHOD INTERFERENCE. CREATININE,URINE 82.50 mg/dL Laboratory [place] [facility] URINE TP/CR RATIO 0.19 RATIO (0.00-0.20) Laborator y [place] [facility] ID Date Data Source [id number] 07/05/2020 09:17:08 PM EST Laboratory [facility] of [employer] [facility] SPEC EXP DATE 04/04/2020PATI ENT ABO/Rh O POSITIVEANTIBODY SCREEN NEGATIVETESTING SITE PERFORMED AT [address] [place] [place] [address] Name Value Range Interpretation Code Description Data Monika rce(s) Supporting Document(s) GLU CHALLENGE TEST @ 106 mg/dL (<140) Laborator y [place] [facility] LITERATURE SUGGESTS RESULTS <140 MG/DL I N A FEMALE RULE OUT GESTATIONAL DIABETES.PATIENTS WITH RESULTS > OR = 140 MAY NEED AGLUCOSE TOLERANCE TEST FOLLOW UP. NOREFERENCE RANGE FOR NON- PATIENTS. ID Date Data Source [id number] 04/24/2020 02:39:32 PM EST Laboratory [facility] [facility] [place] - CORE SPEC EXP DATE 04/04/2020PATI ENT ABO/Rh O POSITIVEANTIBODY SCREEN NEGATIVETESTING SITE PERFORMED AT [address] [place], [place] [id number] Name Value Range Interpretation Code Description Data Monika rce(s) Supporting Document(s) SODIUM 139 mmol/L (136-145) [facility] [place] [facility] [place] - CORE POTASSIUM 3.4 mmol/L (3.6-5.2) L [facility] [place] [facility] [place] - CORE CHLORIDE 106 mmol/L (100-108) [facility] [place] [facility] [place] - CORE CO2 27 mmol/L (22-31) [facility] [place] [facility] [place] - CORE ANION GAP 6 mmol/L (7-16) L [facility] [place] [facility] [place] - CORE UREA NITROGEN 3 mg/dL (7-24) L Laboratory [facility] [place] - CORE CREATININE 0.54 mg/dL (0.60-1.00) L Laboratory [place] [place] - CORE BUN/CREAT RATIO 5.6 RATIO (10.0-20.0) L Laboratory [facility] [place] - CORE GLUCOSE 78 mg/dL (70-99) [facility] [place] [facility] [place] - CORE CALCIUM 8.5 mg/dL (8.4-10.2) [facility] [place] [facility] [place] - CORE TOTAL PROTEIN 6.2 g/dL (6.4-8.2) L Laboratory [facility] [place] - CORE ALBUMIN 3.2 g/dL (3.5-4.6) L [facility] [place] [facility] [place] - CORE GLOBULIN 3.0 g/dL (2.7-4.3) [facility] [place] [facility] [place] - CORE ALB/GLOB RATIO 1.1 RATIO Laboratory [facility] [place] - CORE ALKALINE PHOSPHATASE 85 U/L (45-117) Laborator [facility] [place] [facility] [place] - CORE BILIRUBIN,TOTAL 0.3 mg/dL (0.0-1.0) Laboratory [facility] [place] - CORE PLEASE NOTE:Total bilirubin results may be falselyelevated in patients taking Eltrombopag. AST (SGOT) 11 U/L (11-39) [facility] [place] [facility] [place] - CORE ALT (SGPT) 15 U/L (12-78) [facility] [place] [facility] [place] - CORE GFR >60 ml/min/1.73m2 (>59) Laboratory [facility] [employer] GFR ( AMER) >60 ml/min/1.73m2 (>59) Laboratory [place] [facility] GFR INTERPRETATION Laboratory [facility] --NORMAL KIDNEY FUNCTION OR MILD DISEASE - GFR >OR= 60CHRONIC KIDNEY DISEASE - GFR 15 - 59RENAL FAILURE - GFR <15 Est. GFR calculation based on the MDRDstudy equation, which assumes a steadystate for creatinine. Est. GFR should notbe used for medication dosing. ID Date Data Source [id number] 04/01/2020 08:05:45 PM EST Laboratory Al [facility] of [employer] SPEC EXP DATE 04/04/2020PATI ENT ABO/Rh O POSITIVEANTIBODY SCREEN NEGATIVETESTING SITE PERFORMED AT [address] [place] [address] Name Value Range Interpretation Code Description Data Monika rce(s) Supporting Document(s) HEPATITIS B S AG @ (NEG) Laboratory [place] [facility] ID Date Data Source [id number] 04/01/2020 08:29:09 PM EST Laboratory Al [facility] of [employer] SPEC EXP DATE 04/04/2020PATI ENT ABO/Rh O POSITIVEANTIBODY SCREEN NEGATIVETESTING SITE PERFORMED AT [address] [place] [address] Name Value Range Interpretation Code Description Data Monika rce(s) Supporting Document(s) TREPONEMA IGG/IGM @ (NEG) Laboratory [place] [facility] ID Date Data Source [id number] 04/01/2020 09:02:04 PM EST Laboratory [facility] of [employer] SPEC EXP DATE 04/04/2020PATI ENT ABO/Rh O POSITIVEANTIBODY SCREEN NEGATIVETESTING SITE PERFORMED AT [address] [place] [address] Name Value Range Interpretation Code Description Data Monika rce(s) Supporting Document(s) HIV 1/2 SCREEN @ (NEG) Laboratory [facility] of [employer] - CORE Testing performed using Siemens [employer] taur 4th gen CHIV combo assay.This assay detects the HIV1 p24 antigenin addition to antibodies to HIV1 and HIV2. ID Date Data Source [id number] 04/02/2020 12:04:25 AM EST [facility] SPEC EXP DATE 04/04/2020PATI ENT ABO/Rh O POSITIVEANTIBODY SCREEN NEGATIVETESTING SITE PERFORMED AT [address] [facility] [address] Name Value Range Interpretation Code Description Data Monika rce(s) Supporting Document(s) ID Date Data Source [id number] 04/02/2020 03:34:53 PM EST [facility] - [facility] SPEC EXP DATE 04/04/2020PATI ENT ABO/Rh O POSITIVEANTIBODY SCREEN NEGATIVETESTING SITE PERFORMED [facility] [address] [facility] [address] Name Value Range Interpretation Code Description Data Monika rce(s) Supporting Document(s) RUBELLA IGG AB @ [facility] CORE IgG antibody to Rubella detected. IgGan tibody levels are at a level consideredto indicate positive immunity. ID Date Data Source [id number] 12/09/2020 12:12:00 PM EDT [facility] ([facility] Name Value Range Interpretation Code Description Data Monika rce(s) Supporting Document(s) Rheumatoid factor [Units/volume] in Serum or Plasma Laboratory test result [facility] ID Date Data Source [id number] 12/09/2020 12:12:00 PM EDT [facility] Name Value Range Interpretation Code Description Data Monika rce(s) Supporting Document(s) Lyme Disease IgG/IgM Antibodie Laboratory test result 0.00-0.90 [facility] <content>Negative <0.91</content >
<content>Equivocal 0.91 - 1.09</content>
<content>Positive >1.09</content>
<content></content> Lyme Disease IgM Ab Quantitati Laboratory test result 0.00-0.79 [facility] <content>Negative <0.80</content >
<content>Equivocal 0.80 - 1.19</content>
<content>Positive >1.19</content>
<content>.</content>
<content>IgM levels may peak at 3-6 weeks post infection, then</content>
<content>gradually decline.</content>
<content></content> ID Date Data Source [id number] 12/09/2020 12:12:00 PM EDT [facility] Name Value Range Interpretation Code Description Data Monika rce(s) Supporting Document(s) C reactive protein [Mass/volume] in Serum or Plasma by High sensitivity method 1.04 mg/dL 0.00-0.30 [facility] ([facility] ID Date Data Source [id number] 12/09/2020 12:12:00 PM EDT [facility] Name Value Range Interpretation Code Description Data Monika rce(s) Supporting Document(s) Antinuclear Antibodies Direct Laboratory test result [facility] Performed at: - [facility] [id number] [employer]: Ale Sherwood MD, Phone: [phone] ID Date Data Source [id number] 12/09/2020 12:12:00 PM EDT [facility] Name Value Range Interpretation Code Description Data Monika rce(s) Supporting Document(s) Triglycerides Level 101 mg/dL [facility] HDL Cholesterol 51 mg/dL [facility] Cholesterol Level 200 mg/dL [facility] LDL Cholesterol 129 mg/dL [facility] Cholesterol Risk Ratio 3.921 [facility] Non-HDL-C 149 mg/dL [facility] ID Date Data Source [id number] 12/09/2020 12:12:00 PM EDT [facility] Name Value Range Interpretation Code Description Data Monika rce(s) Supporting Document(s) Red Blood Count 5.15 10 4.00-5.40 [facility] White Blood Count 8.5 10 4.0-10.0 [facility] Hematocrit 40.2 % 36.0-47.0 [facility] Hemoglobin 12.1 g/dL 12.0-15.5 [facility] Mean Corpuscular HGB Conc 30.1 g/dL 32.0-36.5 [facility] Mean Corpuscular Volume 78.1 fl 80.0-96.0 M [facility] Mean Corpuscular Hemoglobin 23.5 pg 27.0-33.0 [facility] Platelet Count, Automated 249 10 150-450 [facility] Red Cell Distribution Width 16.4 % 11.5-14.5 [facility] [place] % 4.6 % 2.0-8.0 [facility] Lymph % 32.7 % 24.0-44.0 [facility] Neutrophils % 61.2 % 36.0-66.0 [facility] Eos % 0.6 % 0.0-3.0 [facility] Baso % 0.7 % 0.0-1.0 [facility] Nucleated Red Blood Cell % 0.0 % 0-0 [facility] Immature Granulocyte % 0.2 % 0-3.0 [facility] Neutrophils # 5.2 10 1.5-8.5 [facility] [place] # 0.4 10 0.0-0.8 [facility] Lymph # 2.8 10 1.5-5.0 [facility] Baso # 0.1 10 0.0-0.2 [facility] Eos # 0.1 10 0.0-0.5 [facility] ID Date Data Source [id number] 12/09/2020 12:12:00 PM EDT [facility] Name Value Range Interpretation Code Description Data Monika rce(s) Supporting Document(s) Glucose, Fasting 83 mg/dL 70-100 [facility] Creatinine For GFR 0.81 mg/dL 0.55-1.30 [facility] Blood Urea Nitrogen 14 mg/dL 7-18 [facility] Glomerular Filtration Rate Laboratory test result [facility] <content>Units are mL/min/1.73 m2</content>
<content></content>
<content>Chronic Kidney Disease Staging per [facility]:</content>
<content></content>
<content>Stage I & II GFR >=60 Normal to Mildly Decreased</content>
<content>Stage III GFR 30- 59 Moderately Decreased</content>
<content>Stage IV GFR 15-29 Severely Decreased</content>
<content>Stage V GFR <15 Very Little GFR Left</content>
<content>ESRD GFR <15 on EVENING OR NIGHT NURSE SUPERVISOR</content>
<content></content> Sodium Level 141 meq/L 136-145 [facility] Potassium Serum 4.0 meq/L 3.5-5.1 [facility] Chloride Level 107 meq/L 98-107 [facility] Carbon Dioxide Level 27 meq/L 21-32 [facility] Calcium Level 8.8 mg/dL 8.5-10.1 [facility] Anion Gap 7 meq/L 8-16 [facility] Ast/Sgot 11 U/L 7-37 [facility] Alkaline Phosphatase 76 U/L 45-117 [facility] Alt/SGPT 25 U/L 12-78 [facility] Bilirubin,Total 0.3 mg/dL 0.2-1.0 [facility] Total Protein 7.3 GM/DL 6.4-8.2 [facility] Albumin/Globulin Ratio 1.4 1.2-2.2 [facility] Albumin 4.2 GM/DL 3.2-5.2 [facility] ID Date Data Source [id number] 08/29/2020 11:44:42 AM EDT [facility] Name Value Range Interpretation Code Description Data Monika rce(s) Supporting Document(s) WBC 11.5 10*3/uL (4.1-11.0) H [facility] RBC 3.08 10*6/uL (4.00-5.40) L [facility] HGB 7.6 g/dL (12.0-16.0) L [facility] HCT 23.6 % (36.0-47.0) L [facility] MCV 76.5 fL (80.0-95.0) L [facility] MCH 24.6 pg (27.0-32.0) L [facility] MCHC 32.1 g/dL (32.0-36.0) [facility] RDW 17.2 % (10.5-14.5) H [facility] PLT 171 10*3/uL (150-450) [facility] MPV 8.8 fL (7.1-10.7) [facility] ID Date Data Source [id number] 08/28/2020 01:17:27 PM EDT [facility] Name Value Range Interpretation Code Description Data Monika rce(s) Supporting Document(s) WBC 10.4 10*3/uL (4.1-11.0) [facility] RBC 2.89 10*6/uL (4.00-5.40) L [facility] HGB 7.1 g/dL (12.0-16.0) L [facility] HCT 22.0 % (36.0-47.0) L [facility] MCV 76.4 fL (80.0-95.0) L [facility] MCH 24.6 pg (27.0-32.0) L [facility] MCHC 32.2 g/dL (32.0-36.0) [facility] RDW 16.5 % (10.5-14.5) H [facility] PLT 138 10*3/uL (150-450) L [facility] MPV 9.2 fL (7.1-10.7) [facility] ID Date Data Source [id number] 08/28/2020 06:59:01 AM EDT [facility] Name Value Range Interpretation Code Description Data Monika rce(s) Supporting Document(s) SODIUM 140 mmol/L (136-145) [facility] POTASSIUM 3.9 mmol/L (3.6-5.2) [facility] CHLORIDE 106 mmol/L (100-108) [facility] CO2 27 mmol/L (22-31) [facility] ANION GAP 7 mmol/L (7-16) [facility] UREA NITROGEN 12 mg/dL (7-24) [facility] CREATININE 0.58 mg/dL (0.60-1.00) L [facility] BUN/CREAT RATIO 20.7 RATIO (10.0-20.0) H [facility] GLUCOSE 75 mg/dL (70-99) [facility] CALCIUM 8.0 mg/dL (8.4-10.2) L [facility] TOTAL PROTEIN 4.8 g/dL (6.4-8.2) L [facility] ALBUMIN 2.0 g/dL (3.5-4.6) L [facility] GLOBULIN 2.8 g/dL (2.7-4.3) [facility] ALB/GLOB RATIO 0.7 RATIO [facility] ALKALINE PHOSPHATASE 125 U/L (45-117) H [facility] BILIRUBIN,TOTAL 0.3 mg/dL (0.0-1.0) [facility] PLEASE NOTE:Total bilirubin results may be falselyelevated in patients taking Eltrombopag. AST (SGOT) 23 U/L (11-39) [facility] ALT (SGPT) 17 U/L (12-78) [facility] GFR >60 ml/min/1.73m2 (>59) [facility] GFR ( AMER) >60 ml/min/1.73m2 (>59) [facility] GFR INTERPRETATION [facility] --NORMAL KIDNEY FUNCTION OR MILD DISEASE - GFR >OR= 60CHRONIC KIDNEY DISEASE - GFR 15 - 59RENAL FAILURE - GFR <15 Est. GFR calculation based on the MDRDstudy equation, which assumes a steadystate for creatinine. Est. GFR should notbe used for medication dosing. ID Date Data Source [id number] 08/28/2020 06:30:32 AM EDT [facility] Name Value Range Interpretation Code Description Data Monika rce(s) Supporting Document(s) WBC 10.7 10*3/uL (4.1-11.0) [facility] RBC 2.83 10*6/uL (4.00-5.40) L [facility] HGB 7.0 g/dL (12.0-16.0) L [facility] HCT 21.7 % (36.0-47.0) L [facility] MCV 76.6 fL (80.0-95.0) L [facility] MCH 24.6 pg (27.0-32.0) L [facility] MCHC 32.1 g/dL (32.0-36.0) [facility] RDW 16.7 % (10.5-14.5) H [facility] PLT 136 10*3/uL (150-450) L [facility] MPV 9.1 fL (7.1-10.7) [facility] ID Date Data Source [id number] 08/27/2020 04:54:30 AM EDT [facility] Name Value Range Interpretation Code Description Data Monika rce(s) Supporting Document(s) URIC ACID 7.5 mg/dL (2.6-6.0) H [facility] ID Date Data Source [id number] 08/27/2020 04:54:30 AM EDT [facility] Name Value Range Interpretation Code Description Data Monika rce(s) Supporting Document(s) LDH 287 U/L (84-246) H [facility] ID Date Data Source [id number] 08/27/2020 04:54:30 AM EDT [facility] Name Value Range Interpretation Code Description Data Monika rce(s) Supporting Document(s) MAGNESIUM 5.7 mg/dL (1.7-2.4) HH [facility] CONSISTENT WITH PREVIOUS RESULTS ID Date Data Source [id number] 08/27/2020 04:54:30 AM EDT [facility] Name Value Range Interpretation Code Description Data Monika rce(s) Supporting Document(s) SODIUM 136 mmol/L (136-145) [facility] POTASSIUM 4.5 mmol/L (3.6-5.2) [facility] CHLORIDE 102 mmol/L (100-108) [facility] CO2 24 mmol/L (22-31) [facility] ANION GAP 10 mmol/L (7-16) [facility] UREA NITROGEN 12 mg/dL (7-24) [facility] CREATININE 0.74 mg/dL (0.60-1.00) [facility] BUN/CREAT RATIO 16.2 RATIO (10.0-20.0) [facility] GLUCOSE 95 mg/dL (70-99) [facility] CALCIUM 7.0 mg/dL (8.4-10.2) L [facility] TOTAL PROTEIN 4.7 g/dL (6.4-8.2) L [facility] ALBUMIN 2.0 g/dL (3.5-4.6) L [facility] GLOBULIN 2.7 g/dL (2.7-4.3) [facility] ALB/GLOB RATIO 0.7 RATIO [facility] ALKALINE PHOSPHATASE 138 U/L (45-117) H [facility] BILIRUBIN,TOTAL 0.3 mg/dL (0.0-1.0) [facility] PLEASE NOTE:Total bilirubin results may be falselyelevated in patients taking Eltrombopag. AST (SGOT) 31 U/L (11-39) [facility] ALT (SGPT) 18 U/L (12-78) [facility] GFR >60 ml/min/1.73m2 (>59) [facility] GFR ( AMER) >60 ml/min/1.73m2 (>59) [facility] GFR INTERPRETATION [facility] --NORMAL KIDNEY FUNCTION OR MILD DISEASE - GFR >OR= 60CHRONIC KIDNEY DISEASE - GFR 15 - 59RENAL FAILURE - GFR <15 Est. GFR calculation based on the MDRDstudy equation, which assumes a steadystate for creatinine. Est. GFR should notbe used for medication dosing. ID Date Data Source [id number] 08/27/2020 04:28:56 AM EDT [facility] Name Value Range Interpretation Code Description Data Monika rce(s) Supporting Document(s) WBC 15.2 10*3/uL (4.1-11.0) H [facility] RBC 3.28 10*6/uL (4.00-5.40) L [facility] HGB 7.9 g/dL (12.0-16.0) L [facility] HCT 25.0 % (36.0-47.0) L [facility] MCV 76.0 fL (80.0-95.0) L [facility] MCH 24.1 pg (27.0-32.0) L [facility] MCHC 31.7 g/dL (32.0-36.0) L [facility] RDW 17.1 % (10.5-14.5) H [facility] PLT 163 10*3/uL (150-450) [facility] MPV 9.4 fL (7.1-10.7) [facility] ID Date Data Source [id number] 08/26/2020 08:57:26 PM EDT [facility] Name Value Range Interpretation Code Description Data Monika rce(s) Supporting Document(s) MAGNESIUM 5.6 mg/dL (1.7-2.4) HH [facility] CONSISTENT WITH PREVIOUS RESULTS ID Date Data Source [id number] 08/26/2020 01:31:34 PM EDT [facility] Name Value Range Interpretation Code Description Data Monika rce(s) Supporting Document(s) APTT 24.6 s (22.0-34.3) [facility] ID Date Data Source [id number] 08/26/2020 01:31:34 PM EDT [facility] Name Value Range Interpretation Code Description Data Monika rce(s) Supporting Document(s) PT 9.6 s (9.2-11.9) [facility] INR 0.91 [facility] SUGGESTED THERAPEUTIC RANGES USING INR F ORSTABILIZED ANTICOAGULATED PATIENTS:STANDARD DOSE THERAPY INR 2.0-3.0 DVT, PE, PREVENT DVT OR EMBOLISMHIGH DOSE THERAPY INR 2.5-3.5 PREVENT EMBOLISM FROM MECHANICAL HEART VALVE ID Date Data Source [id number] 08/26/2020 01:31:34 PM EDT [facility] Name Value Range Interpretation Code Description Data Monika rce(s) Supporting Document(s) FIBRINOGEN 366 mg/dL (150-450) [facility] ID Date Data Source [id number] 08/26/2020 01:20:22 PM EDT [facility] Name Value Range Interpretation Code Description Data Monika rce(s) Supporting Document(s) WBC 16.2 10*3/uL (4.1-11.0) H [facility] RBC 3.86 10*6/uL (4.00-5.40) L [facility] HGB 9.5 g/dL (12.0-16.0) L [facility] HCT 29.5 % (36.0-47.0) L [facility] MCV 76.3 fL (80.0-95.0) L [facility] MCH 24.5 pg (27.0-32.0) L [facility] MCHC 32.1 g/dL (32.0-36.0) [facility] RDW 16.4 % (10.5-14.5) H [facility] PLT 173 10*3/uL (150-450) [facility] MPV 9.6 fL (7.1-10.7) [facility] ID Date Data Source [id number] 08/27/2020 07:17:14 PM EDT [facility] [place], [place] [address]Kxw# SURGICAL PATHOLOGY REPORTPatient Name:REAL WEAVER:1985Received:08/26/2020ccession #:[id number](s) Received: A: Twin placentaClinical Diagnosis and History: Gestational age 34 weeks/EDC 10/07/2020. 34 week primary forPEC, IV, di/di twins. DIAGNOSIS:576 GM DIAMNIONIC/DICHORIONIC FUSED TWIN PLACENTA. PLACENTA A WITH VILLOUS MATURATION APPROPRIATE FOR GESTATIONAL AGE; THREE VESSEL UMBILICAL CORD WITH VELAMENTOUS INSERTION. PLACENTA B WITH VILLOUS MATURATION APPROPRIATE FOR GESTATIONAL AGE; THREE VESSEL UMBILICAL CORD. GROSS DESCRIPTION: Received in formalin labeled "placenta." Intervening membranes Number of layers: Four. Amnion/Chorion Composition: Diamnionic/Dichorionic (fused)Disc: Appearance: Stacy-purple with minimal stacy-whitefibrin deposition. Measurem ent 19.1 x 15.5 x 3.4 cm Combined Weight: 576 gm. Percentile: 10th-25th percentile. Placenta - A Territory Approximately 60% of the disc. Umbilical cord marked with a single cord clamp. Insertion Velamentous, 5.3 cm from the placentaldisc margin. Measurement 23.1 x 1.2 cm. Number of vessels Three. Appearance Stacy-white, focally congested with aleft to right normocoil. Membranes Insertion Marginate. Appearance Stacy-pink and moderately opaque. Site of rupture Approximately 6.9 cm from the placentaldisc margin. Placenta - B Territory: Approximately 40% of the disc. Umbilical cord marked with two cord clamps. Insertion Eccentric, approximately 3.7 cm from theplacental disc margin. Measurement 31.1 x 1.8 cm. Number of vessels Three. Appearance Stacy-white with a left to rightnormocoil. Membranes Insertion Marginate. Appearance Stacy-pink and moderately opaque. Site of rupture Approximately 5.1 cm from the nearestplacental disc. Comments: The surface is stacy-purple with minimal stacy-white areas offibrin deposition. The maternal surface is red- brown, lobulated andcomplete. Sectioning reveals red-brown, spongy, unremarkable cutsurfaces. Cloth Hauler sections are submitted as designated formicroscopic examination: A, placenta A to include membrane and umbilicalcord in 1 and promotional representative disc in 2; B, promotional representative disc B toinclude membranes and umbilical cord in 3 and promotional representative disc in 4; 5,promotional representative dividing membrane and dividing region of placenta. (5blocks) jzwqangela caldwell/Ousmane ported: 08/27/2020Electronically Signed Out By Shade Covington MD jmdPathology Associates [place], [place] [address]Technical component performed at [facility], Histopathology, [address] [place] [address], [facility].Reported at [facility], [address] [place] [address], [facility].This report may include immunohistochemical or in-situ hybridizationresults. Testing was developed and the performance characteristicsdetermined by [facility], as required byCLIA '88. The FDA has determined that approval for specific use is notnecessary for clinical use. The quality of Hematoxylin and Eosin stainsand as applicable, for all immunohistochemical and/or special stains,including positive and negative controls, were reviewed and consideredappropriate.ICD codes: O30.456AGX8 codes: A: 88957F(2) Name Value Range Interpretation Code Description Data [facility](s) Supporting Document(s) ID Date Data Source [id number] 08/26/2020 09:15:36 AM EDT [facility] Name Value Range Interpretation Code Description Data [facility] rce(s) Supporting Document(s) FIBRINOGEN 429 mg/dL (150-450) [facility] ID Date Data Source [id number] 08/26/2020 09:15:36 AM EDT [facility] Name Value Range Interpretation Code Description Data [facility] rce(s) Supporting Document(s) PT 9.3 s (9.2-11.9) [facility] INR 0.88 [facility] SUGGESTED THERAPEUTIC RANGES USING INR F ORSTABILIZED ANTICOAGULATED PATIENTS:STANDARD DOSE THERAPY INR 2.0-3.0 DVT, PE, PREVENT DVT OR EMBOLISMHIGH DOSE THERAPY INR 2.5-3.5 PREVENT EMBOLISM FROM MECHANICAL HEART VALVE ID Date Data Source [id number] 08/26/2020 09:15:36 AM EDT [facility] Name Value Range Interpretation Code Description Data [facility] rce(s) Supporting Document(s) APTT 23.7 s (22.0-34.3) [facility] ID Date Data Source [id number] 08/26/2020 09:02:04 AM EDT [facility] Name Value Range Interpretation Code Description Data [facility](s) Supporting Document(s) WBC 12.4 10*3/uL (4.1-11.0) H [facility] RBC 4.37 10*6/uL (4.00-5.40) [facility] HGB 10.7 g/dL (12.0-16.0) L [facility] HCT 34.0 % (36.0-47.0) L [facility] MCV 77.8 fL (80.0-95.0) L [facility] MCH 24.5 pg (27.0-32.0) L [facility] MCHC 31.4 g/dL (32.0-36.0) L [facility] RDW 16.8 % (10.5-14.5) H [facility] PLT 194 10*3/uL (150-450) [facility] MPV 9.8 fL (7.1-10.7) [facility] ID Date Data Source [id number] 08/26/2020 05:30:16 AM EDT [facility] Name Value Range Interpretation Code Description Data [facility](s) Supporting Document(s) SODIUM 138 mmol/L (136-145) [facility] POTASSIUM 4.0 mmol/L (3.6-5.2) [facility] CHLORIDE 105 mmol/L (100-108) [facility] CO2 23 mmol/L (22-31) [facility] ANION GAP 10 mmol/L (7-16) [facility] UREA NITROGEN 13 mg/dL (7-24) [facility] CREATININE 0.77 mg/dL (0.60-1.00) [facility] BUN/CREAT RATIO 16.9 RATIO (10.0-20.0) [facility] GLUCOSE 88 mg/dL (70-99) [facility] CALCIUM 6.7 mg/dL (8.4-10.2) L [facility] TOTAL PROTEIN 5.7 g/dL (6.4-8.2) L [facility] ALBUMIN 2.5 g/dL (3.5-4.6) L [facility] GLOBULIN 3.2 g/dL (2.7-4.3) [facility] ALB/GLOB RATIO 0.8 RATIO [facility] ALKALINE PHOSPHATASE 178 U/L (45-117) H [facility] BILIRUBIN,TOTAL 0.3 mg/dL (0.0-1.0) [facility] PLEASE NOTE:Total bilirubin results may be falselyelevated in patients taking Eltrombopag. AST (SGOT) 19 U/L (11-39) [facility] ALT (SGPT) 20 U/L (12-78) [facility] GFR >60 ml/min/1.73m2 (>59) [facility] GFR ( AMER) >60 ml/min/1.73m2 (>59) [facility] GFR INTERPRETATION [facility] --NORMAL KIDNEY FUNCTION OR MILD DISEASE - GFR >OR= 60CHRONIC KIDNEY DISEASE - GFR 15 - 59RENAL FAILURE - GFR <15 Est. GFR calculation based on the MDRDstudy equation, which assumes a steadystate for creatinine. Est. GFR should notbe used for medication dosing. ID Date Data Source [id number] 08/26/2020 05:30:16 AM EDT [facility] Name Value Range Interpretation Code Description Data [facility](s) Supporting Document(s) MAGNESIUM 6.5 mg/dL (1.7-2.4) HH [facility] CONSISTENT WITH PREVIOUS RESULTS ID Date Data Source [id number] 08/26/2020 05:16:40 AM EDT [facility] Name Value Range Interpretation Code Description Data [facility](s) Supporting Document(s) HOLD TUBE PINK [facility] ID Date Data Source [id number] 08/26/2020 05:00:09 AM EDT [facility] Name Value Range Interpretation Code Description Data [facility](s) Supporting Document(s) WBC 11.3 10*3/uL (4.1-11.0) [facility] RBC 4.19 10*6/uL (4.00-5.40) [facility] HGB 10.1 g/dL (12.0-16.0) [facility] HCT 31.8 % (36.0-47.0) [facility] MCV 75.8 fL (80.0-95.0) [facility] MCH 24.0 pg (27.0-32.0) [facility] MCHC 31.6 g/dL (32.0-36.0) [facility] RDW 16.9 % (10.5-14.5) [facility] PLT 183 10*3/uL (150-450) [facility] MPV 8.9 fL (7.1-10.7) [facility] ID Date Data Source [id number] 08/25/2020 05:41:10 PM EDT [facility] Name Value Range Interpretation Code Description Data Monika rce(s) Supporting Document(s) LDH 178 U/L (84-246) [facility] ID Date Data Source [id number] 08/25/2020 05:41:10 PM EDT [facility] Name Value Range Interpretation Code Description Data Monika rce(s) Supporting Document(s) MAGNESIUM 6.5 mg/dL (1.7-2.4) [facility] RESULT(S) CALLED TO AND READ BACK BYLISSET Guadalupe AT 1739 ON 08/25/20 [place] [id number] ID Date Data Source [id number] 08/25/2020 05:41:10 PM EDT [facility] Name Value Range Interpretation Code Description Data Monika rce(s) Supporting Document(s) URIC ACID 7.0 mg/dL (2.6-6.0) [facility] ID Date Data Source [id number] 08/25/2020 05:41:10 PM EDT [facility] Name Value Range Interpretation Code Description Data Monika rce(s) Supporting Document(s) SODIUM 138 mmol/L (136-145) [facility] POTASSIUM 4.0 mmol/L (3.6-5.2) [facility] CHLORIDE 107 mmol/L (100-108) [facility] CO2 21 mmol/L (22-31) [facility] ANION GAP 10 mmol/L (7-16) [facility] UREA NITROGEN 11 mg/dL (7-24) [facility] CREATININE 0.78 mg/dL (0.60-1.00) [facility] BUN/CREAT RATIO 14.1 RATIO (10.0-20.0) [facility] [facility] [place] GLUCOSE 110 mg/dL (70-99) H [facility] [place] [facility] [place] CALCIUM 6.8 mg/dL (8.4-10.2) L [facility] [place] [facility] TOTAL PROTEIN 5.6 g/dL (6.4-8.2) L [facility] [place] [facility] [place] ALBUMIN 2.4 g/dL (3.5-4.6) L [facility] [place] [facility] [place] GLOBULIN 3.2 g/dL (2.7-4.3) [facility] [place] [facility] ALB/GLOB RATIO 0.8 RATIO [facility] [place] [facility] ALKALINE PHOSPHATASE 168 U/L (45-117) H [facility] [place] BILIRUBIN,TOTAL 0.2 mg/dL (0.0-1.0) [facility] [place] [facility] [place] PLEASE NOTE:Total bilirubin results may be falselyelevated in patients taking Eltrombopag. AST (SGOT) 22 U/L (11-39) [facility] [place] [facility] ALT (SGPT) 17 U/L (12-78) [facility] [place] [facility] GFR >60 ml/min/1.73m2 (>59) [facility] [place] [facility] GFR ( AMER) >60 ml/min/1.73m2 (>59) [facility] [place] [facility] GFR INTERPRETATION [facility] --NORMAL KIDNEY FUNCTION OR MILD DISEASE - GFR >OR= 60CHRONIC KIDNEY DISEASE - GFR 15 - 59RENAL FAILURE - GFR <15 Est. GFR calculation based on the MDRDstudy equation, which assumes a steadystate for creatinine. Est. GFR should notbe used for medication dosing. ID Date Data Source [id number] 08/25/2020 05:04:28 PM EDT [facility] [place] [facility] [place] Name Value Range Interpretation Code Description Data Monika rce(s) Supporting Document(s) WBC 13.2 10*3/uL (4.1-11.0) H [facility] [place] [facility] [place] RBC 4.12 10*6/uL (4.00-5.40) [facility] [place] [facility] [place] HGB 9.9 g/dL (12.0-16.0) L [facility] [place] [facility] [place] HCT 31.6 % (36.0-47.0) L [facility] [place] [facility] [place] MCV 76.6 fL (80.0-95.0) L [facility] [place] [facility] MCH 24.1 pg (27.0-32.0) L [facility] [place] [facility] [place] MCHC 31.5 g/dL (32.0-36.0) L [facility] [place] [facility] [place] RDW 16.6 % (10.5-14.5) [facility] [place] [facility] [place] PLT 195 10*3/uL (150-450) [facility] [place] [facility] [place] MPV 9.9 fL (7.1-10.7) [facility] [place] [facility] ID Date Data Source [id number] 08/25/2020 06:59:19 AM EDT [facility] [place] [facility] Name Value Range Interpretation Code Description Data Monika rce(s) Supporting Document(s) MAGNESIUM 6.5 mg/dL (1.7-2.4) HH [facility] [place] [facility] [place] RESULT(S) CALLED TO AND READ BACK BYCELIA HUA ON 8S AT 0656 ON 08/25/20.03823 ID Date Data Source [id number] 08/25/2020 06:35:10 AM EDT [facility] [place] [facility] Name Value Range Interpretation Code Description Data Monika rce(s) Supporting Document(s) SODIUM 137 mmol/L (136-145) [facility] [place] [facility] POTASSIUM 4.3 mmol/L (3.6-5.2) [facility] [place] [facility] CHLORIDE 105 mmol/L (100-108) [facility] [place] [facility] CO2 21 mmol/L (22-31) L [facility] [place] [facility] ANION GAP 11 mmol/L (7-16) [facility] [place] [facility] UREA NITROGEN 10 mg/dL (7-24) [facility] [place] [facility] CREATININE 0.73 mg/dL (0.60-1.00) [facility] [place] [facility] BUN/CREAT RATIO 13.7 RATIO (10.0-20.0) [facility] [place] GLUCOSE 106 mg/dL (70-99) H [facility] [place] [facility] [place] CALCIUM 7.2 mg/dL (8.4-10.2) L [facility] [place] [facility] [place] TOTAL PROTEIN 6.0 g/dL (6.4-8.2) L [facility] [place] [facility] [place] ALBUMIN 2.5 g/dL (3.5-4.6) L [facility] [place] [facility] [place] GLOBULIN 3.5 g/dL (2.7-4.3) [facility] [place] [facility] ALB/GLOB RATIO 0.7 RATIO [facility] [place] [facility] ALKALINE PHOSPHATASE 187 U/L (45-117) H [facility] BILIRUBIN,TOTAL 0.3 mg/dL (0.0-1.0) [facility] [place] [facility] [place] PLEASE NOTE:Total bilirubin results may be falselyelevated in patients taking Eltrombopag. AST (SGOT) 21 U/L (11-39) [facility] [place] [facility] ALT (SGPT) 20 U/L (12-78) [facility] [place] [facility] GFR >60 ml/min/1.73m2 (>59) [facility] [place] [facility] [place] GFR ( AMER) >60 ml/min/1.73m2 (>59) [facility] [place] [facility] GFR INTERPRETATION [facility] --NORMAL KIDNEY FUNCTION OR MILD DISEASE - GFR >OR= 60CHRONIC KIDNEY DISEASE - GFR 15 - 59RENAL FAILURE - GFR <15 Est. GFR calculation based on the MDRDstudy equation, which assumes a steadystate for creatinine. Est. GFR should notbe used for medication dosing. ID Date Data Source [id number] 08/25/2020 06:35:10 AM EDT [facility] [place] [facility] [place] Name Value Range Interpretation Code Description Data Monika rce(s) Supporting Document(s) URIC ACID 6.8 mg/dL (2.6-6.0) H [facility] [place] [facility] [place] ID Date Data Source [id number] 08/25/2020 06:35:10 AM EDT [facility] [place] [facility] [place] Name Value Range Interpretation Code Description Data Monika rce(s) Supporting Document(s) LDH 204 U/L (84-246) [facility] [place] [facility] [place] ID Date Data Source [id number] 08/25/2020 06:04:37 AM EDT [facility] [place] [facility] [place] Name Value Range Interpretation Code Description Data Monika rce(s) Supporting Document(s) WBC 14.2 10*3/uL (4.1-11.0) H [facility] [place] [facility] [place] RBC 4.26 10*6/uL (4.00-5.40) [facility] [place] [facility] [place] HGB 10.4 g/dL (12.0-16.0) L [facility] [place] [facility] [place] HCT 32.5 % (36.0-47.0) L [facility] [place] [facility] [place] MCV 76.4 fL (80.0-95.0) L [facility] [place] [facility] [place] MCH 24.5 pg (27.0-32.0) L [facility] [place] [facility] [place] MCHC 32.1 g/dL (32.0-36.0) [facility] [place] [facility] [place] RDW 16.5 % (10.5-14.5) H [facility] [place] [facility] PLT 179 10*3/uL (150-450) [facility] [place] [facility] MPV 9.9 fL (7.1-10.7) [facility] [place] [facility] ID Date Data Source [id number] 08/24/2020 11:15:59 PM EDT [facility] [place] [facility] Name Value Range Interpretation Code Description Data Monika rce(s) Supporting Document(s) MAGNESIUM 6.4 mg/dL (1.7-2.4) [facility] [place] [facility] CONSISTENT WITH PREVIOUS RESULTS ID Date Data Source [id number] 08/24/2020 06:54:55 AM EDT [facility] [place] [facility] [place] Name Value Range Interpretation Code Description Data Monika rce(s) Supporting Document(s) LDH 239 U/L (84-246) [facility] [place] [facility] ID Date Data Source [id number] 08/24/2020 06:54:55 AM EDT [facility] [place] [facility] [place] Name Value Range Interpretation Code Description Data Monika rce(s) Supporting Document(s) MAGNESIUM 5.5 mg/dL (1.7-2.4) [facility] [place] [facility] RESULT(S) CALLED TO AND READ BACK ARDEN Gauthier IN LD AT 0653 ON 08/24/20.67606 ID Date Data Source [id number] 08/24/2020 06:54:55 AM EDT [facility] [place] [facility] Name Value Range Interpretation Code Description Data Monika rce(s) Supporting Document(s) URIC ACID 6.3 mg/dL (2.6-6.0) H [facility] [place] [facility] ID Date Data Source [id number] 08/24/2020 06:54:55 AM EDT [facility] [place] [facility] Name Value Range Interpretation Code Description Data Monika rce(s) Supporting Document(s) SODIUM 138 mmol/L (136-145) [facility] [place] [facility] POTASSIUM 4.3 mmol/L (3.6-5.2) [facility] [place] [facility] CHLORIDE 107 mmol/L (100-108) [facility] [place] [facility] CO2 21 mmol/L (22-31) L [facility] [place] [facility] ANION GAP 10 mmol/L (7-16) [facility] [place] [facility] UREA NITROGEN 8 mg/dL (7-24) [facility] [place] [facility] CREATININE 0.59 mg/dL (0.60-1.00) L [facility] [place] [facility] BUN/CREAT RATIO 13.6 RATIO (10.0-20.0) [facility] GLUCOSE 95 mg/dL (70-99) [facility] [place] [facility] [place] CALCIUM 7.7 mg/dL (8.4-10.2) L [facility] [place] [facility] TOTAL PROTEIN 5.9 g/dL (6.4-8.2) L [facility] [place] [facility] ALBUMIN 2.5 g/dL (3.5-4.6) L [facility] [place] [facility] GLOBULIN 3.4 g/dL (2.7-4.3) [facility] [place] [facility] ALB/GLOB RATIO 0.7 RATIO [facility] [place] [facility] ALKALINE PHOSPHATASE 198 U/L (45-117) H [facility] [place] BILIRUBIN,TOTAL 0.4 mg/dL (0.0-1.0) [facility] [place] [facility] [place] PLEASE NOTE:Total bilirubin results may be falselyelevated in patients taking Eltrombopag. AST (SGOT) 25 U/L (11-39) [facility] [place] [facility] ALT (SGPT) 20 U/L (12-78) [facility] [place] [facility] GFR >60 ml/min/1.73m2 (>59) [facility] [place] [facility] GFR ( AMER) >60 ml/min/1.73m2 (>59) [facility] [place] [facility] GFR INTERPRETATION [facility] --NORMAL KIDNEY FUNCTION OR MILD DISEASE - GFR >OR= 60CHRONIC KIDNEY DISEASE - GFR 15 - 59RENAL FAILURE - GFR <15 Est. GFR calculation based on the MDRDstudy equation, which assumes a steadystate for creatinine. Est. GFR should notbe used for medication dosing. ID Date Data Source [id number] 08/24/2020 05:58:58 AM EDT [facility] [place] [facility] Name Value Range Interpretation Code Description Data Monika rce(s) Supporting Document(s) WBC 13.5 10*3/uL (4.1-11.0) H [facility] [place] [facility] [place] RBC 4.51 10*6/uL (4.00-5.40) [facility] [place] [facility] [place] HGB 10.9 g/dL (12.0-16.0) L [facility] [place] [facility] [place] HCT 34.2 % (36.0-47.0) L [facility] [place] [facility] [place] MCV 75.8 fL (80.0-95.0) L [facility] [place] [facility] [place] MCH 24.3 pg (27.0-32.0) L [facility] [place] [facility] [place] MCHC 32.0 g/dL (32.0-36.0) [facility] [place] [facility] [place] RDW 16.0 % (10.5-14.5) H [facility] [place] [facility] [place] PLT 182 10*3/uL (150-450) [facility] [place] [facility] [place] MPV 9.5 fL (7.1-10.7) [facility] [place] [facility] [place] ID Date Data Source [id number] 08/23/2020 05:50:00 PM EDT [facility] Name Value Range Interpretation Code Description Data Monika rce(s) Supporting Document(s) SARS coronavirus 2 RNA [Presence] in Res piratory specimen by SLY with probe detection NOT DETECTED [facility] This lab was reported by [facility] [place] [facility]. ID Date Data Source [id number] 08/23/2020 06:38:17 PM EDT [facility] [place] [facility] [place] Name Value Range Interpretation Code Description Data Monika rce(s) Supporting Document(s) SPECIMEN DESCRIPTION [facility] [place] INFLUENZA A (NEG) [facility] [place] [facility] [place] INFLUENZA B (NEG) [facility] [place] [facility] [place] RSV (NEG) [facility] [place] [facility] COMMENT [facility] [place] [facility] [place] FDA HAS MADE THIS TEST AVAILABL EUNDER AN EMERGENCY USE AUTHORIZATION(EUA) FOR THE DETECTION AND/OR DIAGNOSISOF THE VIRUS THAT CAUSES COVID-19.[facility]MED [facility] [address] [facility] [address] COVID19 RESULT (NDET) [facility] [place] nathanael SUAREZ THIS ASSAY AMPLIFIES AND DETECTSTHE TARG ET RNA USING REAL-TIME PCR.TESTING PERFORMED ON [employer] GENEXPERTNEGATIVE 2019_NCOV RT-PCR RESULTS DONOT PRECLUDE 2019_NCOV INFECTION ANDSHOULD NOT BE USED THE SOLE BASISFOR PATIENT MANAGEMENT DECISIONS. FIRST TEST [facility] [place] [facility] [place] [place] SYMPTOMATIC [facility] [place] [facility] [place] Gauthier DATE OF SYMPT ONSET [facility] [place] HOSPITALIZED [facility] [place] [facility] [place] [facility] [place] [facility] [place] CONGREGATE CARE SET [facility] [place] [facility] [place] [facility] [place] ID Date Data Source [id number] 08/24/2020 04:07:08 PM EDT [facility] SPECIMEN DESCRIPTION URINE, COLLE CTION METHOD NOT SPECIFIEDCULTURE RESULTS MIXED UROGENITAL MARIE; PLEASE SUBMIT A NEW SPEC IMEN IF CLINICALLY INDICATED.REPORT STATUS FINAL 08/24/2020 Name Value Range Interpretation Code Description Data Monika rce(s) Supporting Document(s) ID Date Data Source [id number] 08/23/2020 06:25:04 PM EDT [facility] [place] [facility] [place] Name Value Range Interpretation Code Description Data Monika rce(s) Supporting Document(s) LDH 196 U/L (84-246) [facility] [place] [facility] ID Date Data Source [id number] 08/23/2020 06:24:39 PM EDT [facility] Name Value Range Interpretation Code Description Data Monika rce(s) Supporting Document(s) SODIUM 142 mmol/L (136-145) [facility] [place] [facility] [place] POTASSIUM 4.1 mmol/L (3.6-5.2) [facility] [place] [facility] [place] CHLORIDE 110 mmol/L (100-108) H [facility] [place] [facility] [place] CO2 25 mmol/L (22-31) [facility] [place] [facility] [place] ANION GAP 7 mmol/L (7-16) [facility] [place] [facility] [place] UREA NITROGEN 5 mg/dL (7-24) L [facility] [place] [facility] [place] CREATININE 0.55 mg/dL (0.60-1.00) L [facility] [place] [facility] [place] BUN/CREAT RATIO 9.1 RATIO (10.0-20.0) L [facility] [place] [facility] [place] GLUCOSE 77 mg/dL (70-99) [facility] [place] [facility] [place] CALCIUM 8.2 mg/dL (8.4-10.2) L [facility] [place] [facility] [place] TOTAL PROTEIN 5.3 g/dL (6.4-8.2) L [facility] [place] [facility] [place] ALBUMIN 2.4 g/dL (3.5-4.6) L [facility] [place] [facility] [place] GLOBULIN 2.9 g/dL (2.7-4.3) [facility] [place] [facility] [place] ALB/GLOB RATIO 0.8 RATIO [facility] [place] [facility] [place] ALKALINE PHOSPHATASE 175 U/L (45-117) H [facility] [place] BILIRUBIN,TOTAL 0.3 mg/dL (0.0-1.0) [facility] [place] [facility] [place] PLEASE NOTE:Total bilirubin results may be falselyelevated in patients taking Eltrombopag. AST (SGOT) 24 U/L (11-39) [facility] [place] [facility] [place] ALT (SGPT) 17 U/L (12-78) [facility] [place] [facility] [place] GFR >60 ml/min/1.73m2 (>59) [facility] [place] [facility] [place] GFR ( AMER) >60 ml/min/1.73m2 (>59) [facility] [place] [facility] [place] GFR INTERPRETATION [facility] [place] --NORMAL KIDNEY FUNCTION OR MILD DISEASE - GFR >OR= 60CHRONIC KIDNEY DISEASE - GFR 15 - 59RENAL FAILURE - GFR <15 Est. GFR calculation based on the MDRDstudy equation, which assumes a steadystate for creatinine. Est. GFR should notbe used for medication dosing. ID Date Data Source [id number] 08/23/2020 06:24:39 PM EDT [facility] [place] [facility] [place] Name Value Range Interpretation Code Description Data Monika rce(s) Supporting Document(s) URIC ACID 5.7 mg/dL (2.6-6.0) [facility] [place] [facility] [place] ID Date Data Source [id number] 08/23/2020 06:23:24 PM EDT [facility] [place] [facility] [place] Name Value Range Interpretation Code Description Data Monika rce(s) Supporting Document(s) URINE WBC (0-5) [facility] [place] [facility] [place] URINE RBC (0-2) [facility] [place] [facility] [place] EPITHELIAL CELLS 4+ [HPF] [facility] [place] [facility] [place] BACTERIA 2+ [HPF] [facility] [place] [facility] [place] ID Date Data Source [id number] 08/23/2020 06:17:17 PM EDT [facility] [place] [facility] [place] Name Value Range Interpretation Code Description Data Monika rce(s) Supporting Document(s) PROTEIN,URINE 94 mg/dL [facility] [place] [facility] [place] URINE PROTEIN MAY BE FALSELY ELEVATEDDUR ING TREATMENT WITH AMINOGLYCOSIDESDUE TO METHOD INTERFERENCE. CREATININE,URINE 13.40 mg/dL [facility] [place] URINE TP/CR RATIO 7.01 RATIO (0.00-0.20) H [facility] [place] ID Date Data Source [id number] 08/23/2020 06:06:49 PM EDT [facility] [place] [facility] [place] Name Value Range Interpretation Code Description Data Monika rce(s) Supporting Document(s) WBC 11.3 10*3/uL (4.1-11.0) H [facility] [place] [facility] [place] RBC 4.16 10*6/uL (4.00-5.40) [facility] [place] [facility] [place] HGB 10.2 g/dL (12.0-16.0) L [facility] [place] [facility] [place] HCT 31.8 % (36.0-47.0) L [facility] [place] [facility] [place] MCV 76.4 fL (80.0-95.0) L [facility] [place] [facility] [place] MCH 24.4 pg (27.0-32.0) L [facility] [place] [facility] [place] MCHC 31.9 g/dL (32.0-36.0) L [facility] [place] [facility] [place] RDW 16.3 % (10.5-14.5) H [facility] [place] [facility] [place] PLT 169 10*3/uL (150-450) [facility] [place] [facility] [place] MPV 10.2 fL (7.1-10.7) [facility] [place] [facility] [place] ID Date Data Source [id number] 08/23/2020 06:01:42 PM EDT [facility] [place] [facility] [place] Name Value Range Interpretation Code Description Data Monika rce(s) Supporting Document(s) COLOR [facility] [place] [facility] [place] APPEARANCE [facility] [place] [facility] [place] SPEC GRAV URINE 1.005 (1.003-1.030) [facility] [place] PH URINE 7.0 (5.0-7.5) [facility] [place] [facility] [place] LEUK ESTERASE 2+ (NEG) A [facility] [place] [facility] [place] NITRITE URINE (NEG) [facility] [place] [facility] [place] PROTEIN URINE 2+ (NEG) A [facility] [place] [facility] [place] GLUCOSE URINE (NEG) [facility] [place] [facility] [place] KETONE URINE (NEG) [facility] [place] UROBILINOG[place] 0.2 mg/dL (0-1.0) [facility] [place] BILIRUBIN URINE (NEG) [facility] [place] [facility] [place] BLOOD/HGB URINE (NEG) A [facility] [place] [facility] [place] ID Date Data Source [id number] 08/23/2020 07:34:00 PM EDT [facility] [place] [facility] [place] SPEC EXP DATE 08/26/2020ATI ENT ABO/Rh O POSITIVEANTIBODY SCREEN NEGATIVETESTING SITE PERFORMED AT [address] [address] COMMENT BLOOD TYPE CONFIRMED. Name Value Range Interpretation Code Description Data Monika rce(s) Supporting Document(s) ID Date Data Source [id number] 07/26/2020 11:16:51 AM EST [facility] [place] [facility] [place] SPECIMEN DESCRIPTION URINE, COLLE CTION METHOD NOT SPECIFIEDCULTURE RESULTS MIXED UROGENITAL MARIE; PLEASE SUBMIT A NEW SPEC IMEN IF CLINICALLY INDICATED.REPORT STATUS FINAL 07/26/2020 Name Value Range Interpretation Code Description Data Monika rce(s) Supporting Document(s) ID Date Data Source [id number] 07/25/2020 10:17:48 AM EST [facility] [place] [facility] [place] Name Value Range Interpretation Code Description Data Monika rce(s) Supporting Document(s) URINE WBC (0-5) [facility] [place] [facility] [place] URINE RBC (0-2) [facility] [place] [facility] [place] EPITHELIAL CELLS 2+ [HPF] [facility] [place] [facility] [place] BACTERIA 1+ [HPF] [facility] [place] [facility] [place] ID Date Data Source [id number] 07/25/2020 10:02:47 AM EST [facility] [place] [facility] [place] Name Value Range Interpretation Code Description Data Monika rce(s) Supporting Document(s) COLOR [facility] [place] [facility] [place] PERFORMED AT [address] [facility] [address] APPEARANCE [facility] [place] [facility] [place] SPEC GRAV URINE 1.016 (1.003-1.030) Lab [facility] of [facility] PH URINE 7.0 (5.0-7.5) [facility] [place] [facility] LEUK ESTERASE 1+ (NEG) A [facility] [place] [facility] [place] NITRITE URINE (NEG) [facility] [place] [facility] [place] PROTEIN URINE (NEG) [facility] [place] [facility] [place] GLUCOSE URINE (NEG) [facility] [place] [facility] [place] KETONE URINE (NEG) [facility] [place] [facility] UROBILINOGEN 0.2 mg/dL (0-1.0) [facility] [place] [facility] [place] BILIRUBIN URINE (NEG) [facility] [place] [facility] [place] BLOOD/HGB URINE (NEG) [facility] [place] [facility] [place] ID Date Data Source [id number] 07/26/2020 02:40:33 PM EST [facility] [place] [facility] Name Value Range Interpretation Code Description Data Monika rce(s) Supporting Document(s) SPECIMEN DESCRIPTION Lab [facility] of [facility] C. TRACHOMATIS (NEG) [facility] [place] [facility] THIS ASSAY AMPLIFIES AND DETECTS TARGETD NA USING STUDIO MODEL-MEDIATEDAMPLIFICATION N. GONORRHOEAE (NEG) [facility] [place] [facility] THIS ASSAY AMPLIFIES AND DETECTS TARGETD NA USING STUDIO MODEL-MEDIATEDAMPLIFICATION ID Date Data Source [id number] 07/25/2020 10:50:50 AM EST [facility] [place] [facility] SPECIMEN DESCRIPTION VAGINAL SPEC IMENRESULT POSITIVE FOR GARDNERELLA VAGINALIS BY DNA PROBE NEGATIVE FOR ROMY SPECIES BY DNA PROBE NEGATIVE FOR TRICHOMONAS VAGINALIS BY DNA PROBEPERFORMED AT [address] [place] [address] REPORT STATUS FINAL 07/25/2020 Name Value Range Interpretation Code Description Data Monika rce(s) Supporting Document(s) ID Date Data Source [id number] 04/02/2020 12:58:53 PM EST Laboratory [facility] Name Value Range Interpretation Code Description Data Monika rce(s) Supporting Document(s) SPECIMEN DESCRIPTION [facility] [place] [facility] C. TRACHOMATIS (NEG) Laboratory [facility] of [facility] THIS ASSAY AMPLIFIES AND DETECTS TARGETD NA USING STUDIO MODEL-MEDIATEDAMPLIFICATION N. GONORRHOEAE (NEG) Laboratory [facility] of [facility] THIS ASSAY AMPLIFIES AND DETECTS TARGETD NA USING STUDIO MODEL-MEDIATEDAMPLIFICATION ID Date Data Source [id number] 04/03/2020 07:42:32 AM EST [facility] [place] [facility] [place] - CORE SPECIMEN DESCRIPTION MIDSTREAM UR INE,CLEAN CATCHCULTURE RESULTS MIXED UROGENITAL MARIE; PLEASE SUBMIT A NEW SPEC IMEN IF CLINICALLY INDICATED.REPORT STATUS FINAL 04/03/2020 Name Value Range Interpretation Code Description Data Monika rce(s) Supporting Document(s) Procedure Social History Code Duration Value Status Description Data Source(s ) Smoking 11/22/2020 12:00:00 AM EDT Patient has never smoked co mpleted Patient has never smoked [facility] ([facility] Smoking 08/23/2020 05:35:00 PM EDT Denies Ever Smoked complete d Denies Ever Smoked [facility] Smoking 08/23/2020 05:35:00 PM EDT Denies Ever Smoked complete d Denies Ever Smoked [facility] Vital Signs ID Date Data Source [id number] Name Value Range Interpretation Code Description Data Source(s) Body weight 178.50 [lb_av] 178.50 [lb_av] [facility] T ([facility]) Body temperature 97.1 [degF] 97.1 [degF] [facility] ([facility]) Body height 65.5 [in_i] 65.5 [in_i] [facility] ([facility] ) 5'5.50" Body mass index (BMI) [Ratio] 29.2 kg/m2 29.2 k g/m2 [facility] ([facility] Body temperature 97.9 [degF] 97.9 [degF] [facility] ([facility] Respiratory rate 17 /min 17 /min [facility] ( [facility] Body height 65.25 [in_i] 65.25 [in_i] [facility] ([facility] 5'5.25" Systolic blood pressure 129 mm[Hg] 129 mm[Hg] M EDENT ([facility] Diastolic blood pressure 87 mm[Hg] 87 mm[Hg] [facility] ([facility] Heart rate 86 /min 86 /min [facility] ([facility] Body weight 179.38 [lb_av] 179.38 [lb_av[facility] Oxygen saturation in Arterial blood by Pulse oximetry 98 % 98 % [facility] ([facility] [place] body weight 125 [lb_av] 125 [lb_av] MED[facility] T ([facility] Body mass index (BMI) [Ratio] 29.6 kg/m2 29.6 k g/m2 [facility] ([facility] Systolic blood pressure 118 mm[Hg] Normal (applies t o non-numeric results) 118 mm[Hg] [facility] Respiratory rate 16 min Normal (applies to non-numeric results) 16 min [facility] Body temperature 36.4 flaco Normal (applies to non-numeric results) 36.4 flaco [facility] Diastolic blood pressure 78 mm[Hg] Normal (applies to non-numeric results) 78 mm[Hg] [facility] Heart rate 102 min Normal (applies to non-numeric resul ts) 102 min [facility] Body height 0.0 cm Normal (applies to non-numeric resu lts) 0.0 cm [facility] Deprecated Oxygen saturation in Capillary blood by Oximetry 98 % Normal (applies to non-numeric results) 98 % [facility] Body mass index (BMI) [Ratio] 34.05 kg/m2 No rmal (applies to non-numeric results) 34.05 kg/m2 [facility] Body weight Measured 95.7 kg Normal (applies to non-num warner results) 95.7 kg [facility]
[2021-04-02] MEDS ORDERED: LEVOTAB11 (04:56)
--- NOTE | 2021-04-02 06:10 | REPVR ---
PROCEDURE INFORMATION: Exam: US Duplex Left Lower Extremity Veins, Limited Exam date and time: 04/02/2021 5:55 AM Age: 35 years old Clinical indication: Pain; Leg, lower; Left; Additional info: Pain and numbness tingling left leg TECHNIQUE: Imaging protocol: Real-time Duplex ultrasound of the Left Lower Extremity with 2-D escamilla scale, color Doppler flow and spectral waveform analysis with image documentation. Limited exam focused on the left lower extremity veins. COMPARISON: TRANSVAGINAL US 07/22/2020 8:08 PM FINDINGS: Left deep veins: Unremarkable. The common femoral, femoral, proximal profunda femoral and popliteal veins are patent without thrombus. Normal Doppler waveforms. Normal compressibility and/or augmentation response. No DVT seen in the contralateral right common femoral vein. Left superficial veins: Unremarkable. Saphenofemoral junction is patent without thrombus. Soft tissues: Unremarkable. IMPRESSION: No evidence of left lower extremity the deep vein thrombosis. Electronically signed by: Suresh Thurston On 04/02/2021 06:09:50 AM
[2021-04-02 07:12] VITALS: BP 161/102
--- OUTSIDE RECORDS SUMMARY | 2021-04-02 07:58 | CCD ---
Author Author [facility] Organization [facility] Address Unknown Phone Unavailable Care Team Providers Care Radio Time Buyer Name Role Phone Rivera Funge Zulay PORTILLO, PA-C Unavailable Unavailabl e FishNohemy, PA-C Unavailable Unavailabl e Fish, Nohemy Biswas [facility], PA-C Unavailable Unavailabl e Fish, Nohemy Biswas [facility], PA-C Unavailable Unavailabl e FishRiverae Zulay [facility], PA-C Unavailable Unavailabl e FishRiverae Zulay [facility], PA-C Unavailable Unavailabl e FishRiverae Zulay [facility], PA-C Unavailable Unavailabl e Fish, Nohemy Zulay [facility], PA-C Unavailable Unavailabl e Fish, Nohemy Zulay PORTILLO, PA-C Unavailable Unavailabl e FishRiverae Zulay [facility], PA-C Unavailable Unavailabl e FishNohemy, PA-C Unavailable Unavailabl e Fish, Nohemy Zulay [facility], PA-C Unavailable Unavailabl e Fish, [facility], PA-C Unavailable Unavailabl e Fish, [facility], PA-C Unavailable Unavailabl e Fish, [facility], PA-C Unavailable Unavailabl e Fish, [facility], PA-C Unavailable Unavailabl e Fish, [facility], PA-C Unavailable Unavailabl e Fish, [facility], PA-C Unavailable Unavailabl e Fish, [facility], PA-C Unavailable Unavailabl e Fish, [facility], PA-C Unavailable Unavailabl e Fish, [facility], PA-C Unavailable Unavailabl e Fish, [facility], PA-C Unavailable Unavailabl e Fish, [facility], PA-C Unavailable Unavailabl e Fish, [facility], PA-C Unavailable Unavailabl e Fish, [facility], PA-C Unavailable Unavailabl e Fish, [facility], PA-C Unavailable Unavailabl e Fish, [facility], PA-C Unavailable Unavailabl e Fish, [facility], PA-C Unavailable Unavailabl e Fish, [facility], PA-C Unavailable Unavailabl e Fish, [facility], PA-C Unavailable Unavailabl e Fish, [facility], PA-C Unavailable Unavailabl e Fish, [facility], PA-C Unavailable Unavailabl e Fish, [facility], PA-C Unavailable Unavailabl e Fish, [facility], PA-C Unavailable Unavailabl e Fish, [facility], PA-C Unavailable Unavailabl e Fish, [facility], PA-C Unavailable Unavailabl e Maile BEARD MD Unavailable Unavailable Maile BEARD MD Unavailable Unavailable Maile BEARD MD Unavailable Unavailable Maile BEARD MD Unavailable Unavailable Maile BEARD MD Unavailable Unavailable Maile BEARD MD Unavailable Unavailable Maile BEARD MD Unavailable Unavailable Maile BEARD MD Unavailable Unavailable Maile EBARD MD Unavailable Unavailable Maile BEARD MD Unavailable [...] Carmelita WEAVER MD Unavailable Unavailable Pleskach, Shameka SHIPYARD PAINTER HELPER Unavailable Unavailable Pleskach, Shameka SHIPYARD PAINTER HELPER Unavailable Unavailable Pleskach, Shameka SHIPYARD PAINTER HELPER Unavailable Unavailable Pleskach, Shameka SHIPYARD PAINTER HELPER Unavailable Unavailable Pleskach, Shameka SHIPYARD PAINTER HELPER Unavailable Unavailable Pleskach, Shameka SHIPYARD PAINTER HELPER Unavailable Unavailable Pleskach, Shameka SHIPYARD PAINTER HELPER Unavailable Unavailable Pleskach, Shameka SHIPYARD PAINTER HELPER Unavailable Unavailable Pleskach, Shameka SHIPYARD PAINTER HELPER Unavailable Unavailable Pleskach, Shameka SHIPYARD PAINTER HELPER Unavailable Unavailable Pleskach, Shameka SHIPYARD PAINTER HELPER Unavailable Unavailable Pleskach, Shameka SHIPYARD PAINTER HELPER Unavailable Unavailable Pleskach, Shameka SHIPYARD PAINTER HELPER Unavailable Unavailable Pleskach, Shameka SHIPYARD PAINTER HELPER Unavailable Unavailable Pleskach, Shameka SHIPYARD PAINTER HELPER Unavailable Unavailable Pleskach, Shameka SHIPYARD PAINTER HELPER Unavailable Unavailable Pleskach, Shameka SHIPYARD PAINTER HELPER Unavailable Unavailable Pleskach, Shameka SHIPYARD PAINTER HELPER Unavailable Unavailable Pleskach, Shameka SHIPYARD PAINTER HELPER Unavailable Unavailable Pleskach, Shameka SHIPYARD PAINTER HELPER Unavailable Unavailable Pleskach, Shameka SHIPYARD PAINTER HELPER Unavailable Unavailable Pleskach, Shameka SHIPYARD PAINTER HELPER Unavailable Unavailable Pleskach, Shameka SHIPYARD PAINTER HELPER Unavailable Unavailable Pleskach, Shameka SHIPYARD PAINTER HELPER Unavailable Unavailable Pleskach, Shameka SHIPYARD PAINTER HELPER Unavailable Unavailable Pleskach, Shameka SHIPYARD PAINTER HELPER Unavailable Unavailable Pleskach, Shameka SHIPYARD PAINTER HELPER Unavailable Unavailable Pleskach, Shameka SHIPYARD PAINTER HELPER Unavailable Unavailable Pleskach, Shameka SHIPYARD PAINTER HELPER Unavailable Unavailable Pleskach, Shameka SHIPYARD PAINTER HELPER Unavailable Unavailable Pleskach, Shameka SHIPYARD PAINTER HELPER Unavailable Unavailable Pleskach, Shameka SHIPYARD PAINTER HELPER Unavailable Unavailable Pleskach, Shameka SHIPYARD PAINTER HELPER Unavailable Unavailable Pleskach, Shameka SHIPYARD PAINTER HELPER Unavailable Unavailable Pleskach, Shameka SHIPYARD PAINTER HELPER Unavailable Unavailable Pleskach, Shameka SHIPYARD PAINTER HELPER Unavailable Unavailable Pleskach, Shameka SHIPYARD PAINTER HELPER Unavailable Unavailable Pleskach, Shameka SHIPYARD PAINTER HELPER Unavailable Unavailable Pleskach, Shameka SHIPYARD PAINTER HELPER Unavailable Unavailable Pleskach, Shameka SHIPYARD PAINTER HELPER Unavailable Unavailable Pleskach, Shameka SHIPYARD PAINTER HELPER Unavailable Unavailable Pleskach, Shameka SHIPYARD PAINTER HELPER Unavailable Unavailable Pleskach, Shameka SHIPYARD PAINTER HELPER Unavailable Unavailable Pleskach, Shameka SHIPYARD PAINTER HELPER Unavailable Unavailable ANA, HORACE . Unavailable Unavailable [...] is protected by Article 27-F of the [place] Public [facility] law. If you continue you may have access to information: Regarding HIV / AIDS; Provided by facilities licensed or operated by the [facility] Office of Mental Health; or Provided by the [facility] Office for People With Developmental Disabilities. If such information is present, then the following [facility] mandated warning applies: This information has been [...] law may result in a fine or skilled nursing sentence or both. A general authorization for [...] Physical Therapy 01/29/2021 08:45:00 AM EDT [facility] ([facility]) Outpatient Attender: Shameka Ochoa [facility] Main Office 11/22/2020 1 1:15:00 AM EDT [facility] ([facility] Inpatient Attender: XIMENA BEARD MD 08/23/2020 06:01:43 PM EDT Lab [facility] Inpatient Attender: HORACE PEREZ .Admitter: HORACE PHILLIPS IN . 08/23/2020 04:19:00 PM EDT - 08/31/2020 01:54:00 PM EDT [facility] Patient discharged. Outpatient Attender: PHILIP WEAVER MD 07/25/2020 10:02:[address] Lab [facility] Outpatient Attender: PHILIP WEAVER MDAdmitter: PHILIP WEAVER MD 07/25/2020 07:49:00 AM EST - 07/25/2020 11:51:00 AM EST VAGINAL BLEEDING [facility] VAGINAL BLEEDING Patient discharged. Immunizations Vaccine Date Status Description Data Source(s) Covid-19 Ant & Ant 09/05/2020 12:00:00 AM EDT completed [facility] ([facility] COVID-19 VACCINE Hasmukh 09/05/2020 12:00:00 AM EDT completed [facility]SIIS Vaccine Series Complete: YESThis Data wa s Submitted to [facility] Via [employer]. Medications Medication Brand Name Start Date Product Form Dose Route Admi nistrative Instructions Pharmacy Instructions Status Indications Reaction Description Data Source(s) Loseasonique Loseasonique 11/22/2020 12:00:00 AM EDT ORAL active [facility] ([facility] Insurance Providers Payer name Policy type / Coverage type Policy ID Covered republican ID Covered republican's relationship to brown Policy Brown Plan Information [employer] [place]/307 [id number] [id number] [employer] BC-BS PPO 306 [id number] [employer]-BS PPO 306 [id number] [employer]-BS PPO 306 [id number] [employer] BC-BS PPO 306 [id number] HU2 [id number] [employer] BC-BS PPO 306 [id number] HU2 [id number] [place] [place] PPO 302/307 [id number] HU2 [id number] EXCELL[employer] H [id number] Spouse [id number] [facility] [id number] SP [id number] [facility] O [id number] S [id number] [facility] INSURANCE [facility]- [id number] 18 [id number] [employer] [place] PPO 302/307 [id number] SP [id number] [employer] -CLINIC [id number] [facility] [id number] 2 [id number] [facility] [id number] SP [id number] [facility] HE[facility] INSURANCE COMPANY-CLINIC [id number] 01 [id number] [employer] [place] PPO 302/307 [id number] [employer] BLUE SHIELD-O/P [id number] 18 [id number] [employer] BLUE SHIELD HEA [id number] SP [id number] [employer] BCBS B [id number] P [id number] BCBS/[employer] Commercial [id number] Family Dependent [id number] [employer] BC-BS PPO [id number] [employer] BC-BS PPO 306 [id number] SP [id number] [employer] BCBS B [id number] P [id number] [employer] BCBS B [id number] S [id number] Problems, Conditions, and Diagnoses No Information Surgeries/Procedures Procedure Description Date Indications Data Source(s) RADEX SHOULDER COMPLETE MINIMUM 2 VIEWS 01/29/2021 12: 00:00 AM EDT [facility] ([facility] OFFICE OUTPATIENT VISIT 25 MINUTES 01/29/2021 12:00:00 AM EDT [facility] ([facility] OFFICE OUTPATIENT VISIT 15 MINUTES 11/22/2020 12:00:00 AM EDT [facility] ([facility] PERIODIC PREVENTIVE MED EST PATIENT 18-39 YRS 11/23/19 12:00:00 AM EDT [facility] ([facility] Results ID Date Data Source [id number] 02/16/2021 12:00:00 AM EDT [facility] Name Value Range Interpretation Code Description Data Monika rce(s) Supporting Document(s) SARS-CoV2 Rapid Antigen Negative [facility] This lab was reported by [facility]. ID Date Data Source [id number] 02/14/2021 12:00:00 AM EDT [facility] Name Value Range Interpretation Code Description Data Monika rce(s) Supporting Document(s) SARS-CoV2 Rapid Antigen Negative [facility]SDKY This lab was reported by [facility]. ID Date Data Source [id number] 12/26/2020 07:24:36 PM EDT Laboratory [facility] - CORE SPEC EXP DATE 04/04/2020PATI ENT ABO/Rh O POSITIVEANTIBODY SCREEN NEGATIVETESTING SITE PERFORMED AT [address] [place] [address] Name Value Range Interpretation Code Description Data Monika rce(s) Supporting Document(s) WBC 8.3 10*3/uL (4.1-11.0) H Laboratory [facility] [place] - CORE RBC 5.17 10*6/uL (4.00-5.40) L Laboratory [facility] [place] - CORE HGB 12.6 [...] - CORE MPV 9.6 fL (7.1-10.7) [facility] [place] [facility] [place] - CORE NEUT % 68.3 % (35.0-75.0) H [facility] [place] - CORE LYMPH % 26.1 % (16.0-52.0) L [facility] [place] - CORE MONO % 4.1 % (0.0-8.0) [facility] [place] [facility] [place] - CORE EOS % 0.6 % (0.0-5.0) [facility] [place] [facility] [place] - CORE BASO % 0.9 % (0.0-4.0) [facility] [place] [facility] [place] - CORE NEUT # 5.7 10*3/uL (1.8-7.7) H [facility] [place] - CORE LYMPH # 2.2 10*3/uL (1.2-4.8) [facility] [place] - CORE MONO # 0.3 10*3/uL (0.0-0.8) [facility] [place] - CORE Eosinophils [#/volume] in Blood by Automated count 0.0 10*3/uL (0.0-0 .5) [facility] [place] [facility] [place] - CORE BASO # 0.1 10*3/uL (0.0-0.2) [facility] ID Date Data Source 12/26/2020 07:42:55 PM EDT Laboratory [facility] of [place] - CORE SPEC EXP DATE 04/04/2020PATI ENT ABO/Rh O POSITIVEANTIBODY SCREEN NEGATIVETESTING SITE PERFORMED [facility] [address] Name Value Range Interpretation Code Description Data Monika rce(s) Supporting Document(s) DHEA SULFATE @ 18 ug/dL (32-270) L Laboratory Alex [facility] of [facility] ID Date Data Source 12/26/2020 07:42:55 PM EDT Laboratory [facility] of [place] - CORE SPEC EXP DATE 04/04/2020PATI ENT ABO/Rh O POSITIVEANTIBODY SCREEN NEGATIVETESTING SITE PERFORMED AT [address] [facility] [address] Name Value Range Interpretation Code Description Data Monika rce(s) Supporting Document(s) SEX HORM BIND GLOB @ 74 nmol/L Laborator y [place] [facility] Adult Female Reference Range:Premenopaus al: >11 nmol/LPostmenopausal: 24-159 nmol/L ID Date Data Source 12/26/2020 07:52:17 PM EDT Laboratory [facility] [place] - CORE SPEC EXP DATE 04/04/2020PATI ENT ABO/Rh O POSITIVEANTIBODY SCREEN NEGATIVETESTING SITE PERFORMED AT [facility] [facility] [address] Name Value Range Interpretation Code Description Data Monika rce(s) Supporting Document(s) PROLACTIN @ 8.7 ng/mL Laboratory [facility] of [facility] Prolactin Reference Range:Males 2.5 - 17.4 ng/mLFemales Non- 2.2 - 30.3 ng/mL 8.1 - 347.6 ng/mL Postmenopausal 0.7 - 31.5 ng/mL ID Date Data Source 12/26/2020 07:52:17 PM EDT Laboratory Al [facility] of [employer] - CORE SPEC EXP DATE 04/04/2020PATI ENT ABO/Rh O POSITIVEANTIBODY SCREEN NEGATIVETESTING SITE PERFORMED [facility] [facility] [address] Name Value Range Interpretation Code Description Data Monika rce(s) Supporting Document(s) FREE THYROXINE @ 0.90 ng/dL (0.76-1.46) Laboratory [facility] ID Date Data Source [id number] 12/26/2020 07:52:17 PM EDT [facility] SPE[facility] EXP DATE 04/04/2020PATI ENT ABO/Rh O POSITIVEANTIBODY SCREEN NEGATIVETESTING SITE PERFORMED AT [facility] [address] Name Value Range Interpretation Code Description Data Monika rce(s) Supporting Document(s) TSH,ULTRASENSITIVE @ 0.716 mIU/L (0.360-4.170) Laboratory [facility] ID Date Data Source [id number] 12/29/2020 01:56:29 PM EDT Laboratory [facility] of [facility] SPEC EXP DATE 04/04/2020[facility] ENT ABO/Rh O POSITIVEANTIBODY SCREEN NEGATIVETESTING SITE PERFORMED AT [facility] [facility] [address] Name Value Range Interpretation Code Description Data Monika rce(s) Supporting Document(s) TESTOSTERONE 9 Laboratory [facility] Reference range: 9 to 55Unit: ng/dL Tota l Testosterone, Females 18 years and older Premenopausal 9-55 ng/dL Postmenopausal 5-32 ng/dL Total testosterone values may not reflect optimal concentrations in all individuals. Free or bioavailable testosterone measurements may provide supportive information. REFERENCE INTERVAL: Testosterone, LC-MS/MS Access complete set of age- and/or gender-specific reference intervals for this test in the [facility] Test Directory ([employer]). This test was developed and its performance characteristics determined by [facility]. It has not been cleared or approved by the [place] Food and Drug Administration. This test was performed in a CLIA certified laboratory and is intended for clinical purposes. Performed By: [facility] [address] [place] [address] Route Salesman: Ana Cristina Lundberg MD ID Date Data Source [id number] 12/30/2020 01:02:58 PM EDT Laboratory [facility] SPEC EXP DATE 04/04/2020PATI ENT ABO/Rh O POSITIVEANTIBODY SCREEN NEGATIVETESTING SITE PERFORMED AT [address] [facility] [address] Name Value Range Interpretation Code Description Data Monika rce(s) Supporting Document(s) 17 OH PROGESTERONE 15.32 Laboratory [facility] Reference range: <=206.00Unit: ng/dL INT ERPRETIVE INFORMATION for 17- Hydroxyprogesterone in females: Follicular 15 to 70 ng/dL Luteal 35 to 290 ng/dL REFERENCE INTERVAL: 17- Hydroxyprogesterone Qnt, HPLC-MS/MS Access complete set of age- and/or gender- specific reference intervals for this test in the [facility] Directory ([employer]). This test was developed and its performance characteristics determined by [facility]. It has not been cleared or approved by the US Food and Drug Administration. This test was performed in a CLIA certified laboratory and is intended for clinical purposes. Performed By: [facility] [address] [place] [address] [address] Salesman: Ana Cristina Lundberg MD ID Date Data Source [id number] 07/23/2020 01:21:02 PM EST Laboratory [facility] of [facility] [employer] SPEC EXP DATE 04/04/2020PATI ENT ABO/Rh O POSITIVEANTIBODY SCREEN NEGATIVETESTING SITE PERFORMED AT [address] [place] [place] [address] Name Value Range Interpretation Code Description Data Monika rce(s) Supporting Document(s) PROTEIN,URINE 16 mg/dL Laboratory [facility] of [facility] URINE PROTEIN MAY BE FALSELY ELEVATEDDUR ING TREATMENT WITH AMINOGLYCOSIDESDUE TO METHOD INTERFERENCE. CREATININE,URINE 82.50 mg/dL Laboratory [facility] URINE TP/CR RATIO 0.19 RATIO (0.00-0.20) Laborator y [facility] ID Date Data Source [id number] 07/05/2020 09:17:08 PM EST Laboratory [facility] of [employer] SPEC EXP DATE 04/04/2020PATI ENT ABO/Rh O POSITIVEANTIBODY SCREEN NEGATIVETESTING SITE PERFORMED AT [address] [place] [address] Name Value Range Interpretation Code Description Data Monika rce(s) Supporting Document(s) GLU CHALLENGE TEST @ 106 mg/dL (<140) Laborator y [facility] LITERATURE SUGGESTS RESULTS <140 MG/DL I N A FEMALE RULE OUT GESTATIONAL DIABETES.PATIENTS WITH RESULTS > OR = 140 MAY NEED AGLUCOSE TOLERANCE TEST FOLLOW UP. NOREFERENCE RANGE FOR NON- PATIENTS. ID Date Data Source [id number] 04/24/2020 02:39:32 PM EST Laboratory [facility] [place] - CORE SPEC EXP DATE 04/04/2020PATI ENT ABO/Rh O POSITIVEANTIBODY SCREEN NEGATIVETESTING SITE PERFORMED AT [address] [place], [place] [address] Name Value Range Interpretation Code Description Data Monika rce(s) Supporting Document(s) SODIUM 139 mmol/L (136-145) [facility] [place] [facility] [place] - CORE POTASSIUM 3.4 mmol/L (3.6-5.2) L [facility] [place] [facility] [place] - CORE CHLORIDE 106 mmol/L (100-108) [facility] [place] [facility] [place] - CORE CO2 27 mmol/L (22-31) [facility] [place] [facility] [place] - CORE ANION GAP 6 mmol/L (7-16) L [facility] [place] [facility] [place] - CORE UREA NITROGEN 3 mg/dL (7-24) L Laboratory [facility] [place] - CORE CREATININE 0.54 mg/dL (0.60-1.00) L Laboratory [facility] [place] - CORE BUN/CREAT RATIO 5.6 RATIO (10.0-20.0) L Laboratory [facility] [place] - CORE GLUCOSE 78 mg/dL (70-99) [facility] [place] [facility] [place] - CORE CALCIUM 8.5 mg/dL (8.4-10.2) [facility] [place] [facility] [place] - CORE TOTAL PROTEIN 6.2 g/dL (6.4-8.2) L Laboratory [facility] [place] - CORE ALBUMIN 3.2 g/dL (3.5-4.6) L [facility] [place] [facility] [place] - CORE GLOBULIN 3.0 g/dL (2.7-4.3) [facility] [place] [facility] [place] - CORE ALB/GLOB RATIO 1.1 RATIO Laboratory [facility] [place] - CORE ALKALINE PHOSPHATASE 85 U/L (45-117) Laborator [facility] [place] [facility] [place] - CORE BILIRUBIN,TOTAL 0.3 mg/dL (0.0-1.0) Laboratory [facility] [place] - CORE PLEASE NOTE:Total bilirubin results may be falselyelevated in patients taking Eltrombopag. AST (SGOT) 11 U/L (11-39) [facility] [place] [facility] [place] - CORE ALT (SGPT) 15 U/L (12-78) [facility] [place] [facility] [place] - CORE GFR >60 ml/min/1.73m2 (>59) Laboratory [facility] GFR ( AMER) >60 ml/min/1.73m2 (>59) Laboratory [facility] GFR INTERPRETATION Laboratory [facility] --NORMAL KIDNEY FUNCTION OR MILD DISEASE - GFR >OR= 60CHRONIC KIDNEY DISEASE - GFR 15 - 59RENAL FAILURE - GFR <15 Est. GFR calculation based on the MDRDstudy equation, which assumes a steadystate for creatinine. Est. GFR should notbe used for medication dosing. ID Date Data Source [id number] 04/01/2020 08:05:45 PM EST Laboratory [facility] of [employer] SPEC EXP DATE 04/04/2020PATI ENT ABO/Rh O POSITIVEANTIBODY SCREEN NEGATIVETESTING SITE PERFORMED AT [address] [facility] [place] [address] Name Value Range Interpretation Code Description Data Monika rce(s) Supporting Document(s) HEPATITIS B S AG @ (NEG) Laboratory [facility] ID Date Data Source [id number] 04/01/2020 08:29:09 PM EST Laboratory [facility] of [facility] [place] SPEC EXP DATE 04/04/2020PATI ENT ABO/Rh O POSITIVEANTIBODY SCREEN NEGATIVETESTING SITE PERFORMED AT [address] [place] [address] Name Value Range Interpretation Code Description Data Monika rce(s) Supporting Document(s) TREPONEMA IGG/IGM @ (NEG) Laboratory [facility] ID Date Data Source [id number] 04/01/2020 09:02:04 PM EST Laboratory [facility] of [facility] [place] SPEC EXP DATE 04/04/2020PATI ENT ABO/Rh O POSITIVEANTIBODY SCREEN NEGATIVETESTING SITE PERFORMED AT [address] [place] [address] Name Value Range Interpretation Code Description Data Monika rce(s) Supporting Document(s) HIV 1/2 SCREEN @ (NEG) Laboratory [facility] of [employer] - CORE Testing performed using Siemens ADVIAPikhubn taur 4th gen CHIV combo assay.This assay detects the HIV1 p24 antigenin addition to antibodies to HIV1 and HIV2. ID Date Data Source [id number] 04/02/2020 12:04:25 AM EST Laboratory [facility] [place] - CORE SPEC EXP DATE 04/04/2020PATI ENT ABO/Rh O POSITIVEANTIBODY SCREEN NEGATIVETESTING SITE PERFORMED AT [facility] [address] Name Value Range Interpretation Code Description Data Monika rce(s) Supporting Document(s) ID Date Data Source [id number] 04/02/2020 03:34:53 PM EST Laboratory [facility] [place] - CORE SPEC EXP DATE 04/04/2020PATI ENT ABO/Rh O POSITIVEANTIBODY SCREEN NEGATIVETESTING SITE PERFORMED AT [facility] [address] Name Value Range Interpretation Code Description Data Monika rce(s) Supporting Document(s) RUBELLA IGG AB @ Laboratory [facility] of [place] - CORE IgG antibody to Rubella detected. IgGan tibody levels are at a level consideredto indicate positive immunity. ID Date Data Source [id number] 12/09/2020 12:12:00 PM EDT [facility] ([facility] Name Value Range Interpretation Code Description Data Monika rce(s) Supporting Document(s) Rheumatoid factor [Units/volume] in Serum or Plasma Laboratory test result [facility] ([facility] ID Date Data Source [id number] 12/09/2020 12:12:00 PM EDT [facility] ([facility] [...]
<content>gradually decline.</content>
<content></content> ID Date Data Source [id number] 12/09/2020 12:12:00 PM EDT [facility] ([facility] Name Value Range Interpretation Code Description Data Monika rce(s) Supporting Document(s) C reactive protein [Mass/volume] in Serum or Plasma by High sensitivity method 1.04 mg/dL 0.00-0.30 [facility] ([facility] ID Date Data Source [id number] 12/09/2020 12:12:00 PM EDT [facility] ([facility] Name Value Range Interpretation Code Description Data Monika rce(s) Supporting Document(s) Antinuclear Antibodies Direct Laboratory test result [facility] ([facility] Performed at: - [id number] Clinical Associate: Ale Sherwood MD, Phone: [phone] ID Date Data Source [id number] 12/09/2020 12:12:00 PM EDT [facility] ([facility] [...] [facility] ID Date Data Source [id number] 12/09/2020 12:12:00 PM EDT [facility] ([facility] [...] % 11.5-14.5 [facility] ([facility] [place] % 4.6 % 2.0-8.0 [facility] (Zulay vazquez [...] 10 1.5-8.5 [facility] ([facility] [place] # 0.4 10 0.0-0.8 [facility] ([facility] Lymph # 2.8 10 1.5-5.0 [facility] ([facility] Baso # 0.1 10 0.0-0.2 [facility] ([facility] Eos # 0.1 10 0.0-0.5 [facility] ([facility] ID Date Data Source [id number] 12/09/2020 12:12:00 PM EDT [facility] (Zulay Barber [...] Little GFR Left</content>
<content>ESRD GFR <15 on HEAD SILVERMAN</content>
<content></content> Sodium Level 141 meq/L 136-145 [facility] [...] vazquez [facility] ID Date Data Source [id number] 08/29/2020 11:44:42 AM EDT [facility] Name Value Range Interpretation Code Description Data Monika rce(s) Supporting Document(s) WBC 11.5 10*3/uL (4.1-11.0) H [facility] RBC 3.08 10*6/uL (4.00-5.40) L [facility] HGB 7.6 g/dL (12.0-16.0) L [facility] HCT 23.6 % (36.0-47.0) L [facility] MCV 76.5 fL (80.0-95.0) L [facility] MCH 24.6 pg (27.0-32.0) L [facility] MCHC 32.1 g/dL (32.0-36.0) [facility] RDW 17.2 % (10.5-14.5) H [facility] PLT 171 10*3/uL (150-450) [facility] MPV 8.8 fL (7.1-10.7) [facility] ID Date Data Source [id number] 08/28/2020 01:17:27 PM EDT [facility] Name Value Range Interpretation Code Description Data Monika rce(s) Supporting Document(s) WBC 10.4 10*3/uL (4.1-11.0) [facility] RBC 2.89 10*6/uL (4.00-5.40) L [facility] HGB 7.1 g/dL (12.0-16.0) L [facility] HCT 22.0 % (36.0-47.0) L [facility] MCV 76.4 fL (80.0-95.0) L [facility] MCH 24.6 pg (27.0-32.0) L [facility] MCHC 32.2 g/dL (32.0-36.0) [facility] RDW 16.5 % (10.5-14.5) H [facility] PLT 138 10*3/uL (150-450) L [facility] MPV 9.2 fL (7.1-10.7) [facility] ID Date Data Source [id number] 08/28/2020 06:59:01 AM EDT [facility] Name Value Range Interpretation Code Description Data Monika rce(s) Supporting Document(s) SODIUM 140 mmol/L (136-145) [facility] POTASSIUM 3.9 mmol/L (3.6-5.2) [facility] CHLORIDE 106 mmol/L (100-108) [facility] CO2 27 mmol/L (22-31) [facility] ANION GAP 7 mmol/L (7-16) [facility] UREA NITROGEN 12 mg/dL (7-24) [facility] CREATININE 0.58 mg/dL (0.60-1.00) L [facility] BUN/CREAT RATIO 20.7 RATIO (10.0-20.0) [facility] GLUCOSE 75 mg/dL (70-99) [facility] CALCIUM 8.0 mg/dL (8.4-10.2) L [facility] TOTAL PROTEIN 4.8 g/dL (6.4-8.2) L [facility] ALBUMIN 2.0 g/dL (3.5-4.6) L [facility] GLOBULIN 2.8 g/dL (2.7-4.3) [facility] ALB/GLOB RATIO 0.7 RATIO [facility] ALKALINE PHOSPHATASE 125 U/L (45-117) H [facility] BILIRUBIN,TOTAL 0.3 mg/dL (0.0-1.0) [facility] PLEASE NOTE:Total bilirubin results may be falselyelevated in patients taking Eltrombopag. AST (SGOT) 23 U/L (11-39) [facility] ALT (SGPT) 17 U/L (12-78) [facility] GFR >60 ml/min/1.73m2 (>59) [facility] GFR ( AMER) >60 ml/min/1.73m2 (>59) [facility] GFR INTERPRETATION [facility] --NORMAL KIDNEY FUNCTION OR MILD DISEASE - GFR >OR= 60CHRONIC KIDNEY DISEASE - GFR 15 - 59RENAL FAILURE - GFR <15 Est. GFR calculation based on the MDRDstudy equation, which assumes a steadystate for creatinine. Est. GFR should notbe used for medication dosing. ID Date Data Source [id number] 08/28/2020 06:30:32 AM EDT [facility] Name Value Range Interpretation Code Description Data Monika rce(s) Supporting Document(s) WBC 10.7 10*3/uL (4.1-11.0) [facility] RBC 2.83 10*6/uL (4.00-5.40) L [facility] HGB 7.0 g/dL (12.0-16.0) L [facility] HCT 21.7 % (36.0-47.0) L [facility] MCV 76.6 fL (80.0-95.0) L [facility] MCH 24.6 pg (27.0-32.0) L [facility] MCHC 32.1 g/dL (32.0-36.0) [facility] RDW 16.7 % (10.5-14.5) H [facility] PLT 136 10*3/uL (150-450) L [facility] MPV 9.1 fL (7.1-10.7) [facility] ID Date Data Source [id number] 08/27/2020 04:54:30 AM EDT [facility] Name Value Range Interpretation Code Description Data Monika rce(s) Supporting Document(s) URIC ACID 7.5 mg/dL (2.6-6.0) H [facility] ID Date Data Source [id number] 08/27/2020 04:54:30 AM EDT [facility] Name Value Range Interpretation Code Description Data Monika rce(s) Supporting Document(s) LDH 287 U/L (84-246) H [facility] ID Date Data Source [id number] 08/27/2020 04:54:30 AM EDT [facility] Name Value Range Interpretation Code Description Data Monika rce(s) Supporting Document(s) MAGNESIUM 5.7 mg/dL (1.7-2.4) HH [facility] CONSISTENT WITH PREVIOUS RESULTS ID Date Data Source [id number] 08/27/2020 04:54:30 AM EDT [facility] Name Value Range Interpretation Code Description Data Monika rce(s) Supporting Document(s) SODIUM 136 mmol/L (136-145) [facility] POTASSIUM 4.5 mmol/L (3.6-5.2) [facility] CHLORIDE 102 mmol/L (100-108) [facility] CO2 24 mmol/L (22-31) [facility] ANION GAP 10 mmol/L (7-16) [facility] UREA NITROGEN 12 mg/dL (7-24) [facility] CREATININE 0.74 mg/dL (0.60-1.00) [facility] BUN/CREAT RATIO 16.2 RATIO (10.0-20.0) [facility] GLUCOSE 95 mg/dL (70-99) [facility] CALCIUM 7.0 mg/dL (8.4-10.2) L [facility] TOTAL PROTEIN 4.7 g/dL (6.4-8.2) L [facility] ALBUMIN 2.0 g/dL (3.5-4.6) L [facility] GLOBULIN 2.7 g/dL (2.7-4.3) [facility] ALB/GLOB RATIO 0.7 RATIO [facility] ALKALINE PHOSPHATASE 138 U/L (45-117) H [facility] BILIRUBIN,TOTAL 0.3 mg/dL (0.0-1.0) [facility] PLEASE NOTE:Total bilirubin results may be falselyelevated in patients taking Eltrombopag. AST (SGOT) 31 U/L (11-39) [facility] ALT (SGPT) 18 U/L (12-78) [facility] GFR >60 ml/min/1.73m2 (>59) [facility] GFR ( AMER) >60 ml/min/1.73m2 (>59) [facility] GFR INTERPRETATION [facility] --NORMAL KIDNEY FUNCTION OR MILD DISEASE - GFR >OR= 60CHRONIC KIDNEY DISEASE - GFR 15 - 59RENAL FAILURE - GFR <15 Est. GFR calculation based on the MDRDstudy equation, which assumes a steadystate for creatinine. Est. GFR should notbe used for medication dosing. ID Date Data Source [id number] 08/27/2020 04:28:56 AM EDT [facility] Name Value Range Interpretation Code Description Data Monika rce(s) Supporting Document(s) WBC 15.2 10*3/uL (4.1-11.0) H [facility] RBC 3.28 10*6/uL (4.00-5.40) L [facility] HGB 7.9 g/dL (12.0-16.0) L [facility] HCT 25.0 % (36.0-47.0) L [facility] MCV 76.0 fL (80.0-95.0) L [facility] MCH 24.1 pg (27.0-32.0) L [facility] MCHC 31.7 g/dL (32.0-36.0) L [facility] RDW 17.1 % (10.5-14.5) H [facility] PLT 163 10*3/uL (150-450) [facility] MPV 9.4 fL (7.1-10.7) [facility] ID Date Data Source [id number] 08/26/2020 08:57:26 PM EDT [facility] Name Value Range Interpretation Code Description Data Monika rce(s) Supporting Document(s) MAGNESIUM 5.6 mg/dL (1.7-2.4) HH [facility] CONSISTENT WITH PREVIOUS RESULTS ID Date Data Source [id number] 08/26/2020 01:31:34 PM EDT [facility] Name Value Range Interpretation Code Description Data Monika rce(s) Supporting Document(s) APTT 24.6 s (22.0-34.3) [facility] ID Date Data Source [id number] 08/26/2020 01:31:34 PM EDT [facility] Name Value Range Interpretation Code Description Data Monika rce(s) Supporting Document(s) PT 9.6 s (9.2-11.9) [facility] INR 0.91 [facility] SUGGESTED THERAPEUTIC RANGES USING INR F ORSTABILIZED ANTICOAGULATED PATIENTS:STANDARD DOSE THERAPY INR 2.0-3.0 DVT, PE, PREVENT DVT OR EMBOLISMHIGH DOSE THERAPY INR 2.5-3.5 PREVENT EMBOLISM FROM MECHANICAL HEART VALVE ID Date Data Source [id number] 08/26/2020 01:31:34 PM EDT [facility] Name Value Range Interpretation Code Description Data Monika rce(s) Supporting Document(s) FIBRINOGEN 366 mg/dL (150-450) [facility] ID Date Data Source [id number] 08/26/2020 01:20:22 PM EDT [facility] Name Value Range Interpretation Code Description Data Monika rce(s) Supporting Document(s) WBC 16.2 10*3/uL (4.1-11.0) H [facility] RBC 3.86 10*6/uL (4.00-5.40) L [facility] HGB 9.5 g/dL (12.0-16.0) L [facility] HCT 29.5 % (36.0-47.0) L [facility] MCV 76.3 fL (80.0-95.0) L [facility] MCH 24.5 pg (27.0-32.0) L [facility] MCHC 32.1 g/dL (32.0-36.0) [facility] RDW 16.4 % (10.5-14.5) H [facility] PLT 173 10*3/uL (150-450) [facility] MPV 9.6 fL (7.1-10.7) [facility] ID Date Data Source [id number] 08/27/2020 07:17:14 PM EDT [facility], [place] [address]Vjf# SURGICAL PATHOLOGY REPORTPatient Name:REAL WEAVER:1985Received:08/26/2020ccession #:[id number](s) [...] andcomplete. Sectioning reveals red-brown, spongy, unremarkable cutsurfaces. Manager Public sections are submitted as designated formicroscopic examination: A, placenta A to include membrane and umbilicalcord in 1 and appeals representative disc in 2; B, appeals representative disc B toinclude membranes and umbilical cord in 3 and appeals representative disc in 4; 5,appeals representative dividing membrane and dividing region of placenta. (5blocks) jzwqangela caldwell/Ousmane ported: 08/27/2020Electronically Signed Out By Shade Covington MD jmdPathology Associates [place], [place] [address]Technical component performed at [facility], Histopathology, [address] [place] [address], [facility].Reported at [facility], [address] [place] [address], [facility].This report may include immunohistochemical or in-situ hybridizationresults. Testing was developed and the performance characteristicsdetermined by [facility], as required byCLIA '88. The FDA has determined that approval for specific use is notnecessary for clinical use. The quality of Hematoxylin and Eosin stainsand as applicable, for all immunohistochemical and/or special stains,including positive and negative controls, were reviewed and consideredappropriate.ICD codes: O30.223PBC0 codes: A: 05774V(2) Name Value Range Interpretation Code Description Data [facility](s) Supporting Document(s) ID Date Data Source [id number] 08/26/2020 09:15:36 AM EDT [facility] Name Value Range Interpretation Code Description Data Monika rce(s) Supporting Document(s) FIBRINOGEN 429 mg/dL (150-450) [facility] ID Date Data Source [id number] 08/26/2020 09:15:36 AM EDT [facility] Name Value Range Interpretation Code Description Data Monika rce(s) Supporting Document(s) PT 9.3 s (9.2-11.9) [facility] INR 0.88 [facility] SUGGESTED THERAPEUTIC RANGES USING INR F ORSTABILIZED ANTICOAGULATED PATIENTS:STANDARD DOSE THERAPY INR 2.0-3.0 DVT, PE, PREVENT DVT OR EMBOLISMHIGH DOSE THERAPY INR 2.5-3.5 PREVENT EMBOLISM FROM MECHANICAL HEART VALVE ID Date Data Source [id number] 08/26/2020 09:15:36 AM EDT [facility] Name Value Range Interpretation Code Description Data Monika rce(s) Supporting Document(s) APTT 23.7 s (22.0-34.3) [facility] ID Date Data Source [id number] 08/26/2020 09:02:04 AM EDT [facility] Name Value Range Interpretation Code Description Data Monika rce(s) Supporting Document(s) WBC 12.4 10*3/uL (4.1-11.0) H [facility] RBC 4.37 10*6/uL (4.00-5.40) [facility] HGB 10.7 g/dL (12.0-16.0) L [facility] HCT 34.0 % (36.0-47.0) L [facility] MCV 77.8 fL (80.0-95.0) L [facility] MCH 24.5 pg (27.0-32.0) L [facility] MCHC 31.4 g/dL (32.0-36.0) L [facility] RDW 16.8 % (10.5-14.5) H [facility] PLT 194 10*3/uL (150-450) [facility] MPV 9.8 fL (7.1-10.7) [facility] ID Date Data Source [id number] 08/26/2020 05:30:16 AM EDT [facility] Name Value Range Interpretation Code Description Data Monika rce(s) Supporting Document(s) SODIUM 138 mmol/L (136-145) [facility] POTASSIUM 4.0 mmol/L (3.6-5.2) [facility] CHLORIDE 105 mmol/L (100-108) [facility] CO2 23 mmol/L (22-31) [facility] ANION GAP 10 mmol/L (7-16) [facility] UREA NITROGEN 13 mg/dL (7-24) [facility] CREATININE 0.77 mg/dL (0.60-1.00) [facility] BUN/CREAT RATIO 16.9 RATIO (10.0-20.0) [facility] GLUCOSE 88 mg/dL (70-99) [facility] CALCIUM 6.7 mg/dL (8.4-10.2) L [facility] TOTAL PROTEIN 5.7 g/dL (6.4-8.2) L [facility] ALBUMIN 2.5 g/dL (3.5-4.6) L [facility] GLOBULIN 3.2 g/dL (2.7-4.3) [facility] ALB/GLOB RATIO 0.8 RATIO [facility] ALKALINE PHOSPHATASE 178 U/L (45-117) H [facility] BILIRUBIN,TOTAL 0.3 mg/dL (0.0-1.0) [facility] PLEASE NOTE:Total bilirubin results may be falselyelevated in patients taking Eltrombopag. AST (SGOT) 19 U/L (11-39) [facility] ALT (SGPT) 20 U/L (12-78) [facility] GFR >60 ml/min/1.73m2 (>59) [facility] GFR ( AMER) >60 ml/min/1.73m2 (>59) [facility] GFR INTERPRETATION [facility] --NORMAL KIDNEY FUNCTION OR MILD DISEASE - GFR >OR= 60CHRONIC KIDNEY DISEASE - GFR 15 - 59RENAL FAILURE - GFR <15 Est. GFR calculation based on the MDRDstudy equation, which assumes a steadystate for creatinine. Est. GFR should notbe used for medication dosing. ID Date Data Source [id number] 08/26/2020 05:30:16 AM EDT [facility] Name Value Range Interpretation Code Description Data Monika rce(s) Supporting Document(s) MAGNESIUM 6.5 mg/dL (1.7-2.4) HH [facility] CONSISTENT WITH PREVIOUS RESULTS ID Date Data Source [id number] 08/26/2020 05:16:40 AM EDT [facility] Name Value Range Interpretation Code Description Data Monika rce(s) Supporting Document(s) HOLD TUBE PINK [facility] ID Date Data Source [id number] 08/26/2020 05:00:09 AM EDT [facility] Name Value Range Interpretation Code Description Data Monika rce(s) Supporting Document(s) WBC 11.3 10*3/uL (4.1-11.0) H [facility] RBC 4.19 10*6/uL (4.00-5.40) [facility] HGB 10.1 g/dL (12.0-16.0) L [facility] HCT 31.8 % (36.0-47.0) L [facility] MCV 75.8 fL (80.0-95.0) L [facility] MCH 24.0 pg (27.0-32.0) L [facility] MCHC 31.6 g/dL (32.0-36.0) L [facility] RDW 16.9 % (10.5-14.5) H [facility] PLT 183 10*3/uL (150-450) [facility] MPV 8.9 fL (7.1-10.7) [facility] ID Date Data Source [id number] 08/25/2020 05:41:10 PM EDT [facility] Name Value Range Interpretation Code Description Data Monika rce(s) Supporting Document(s) LDH 178 U/L (84-246) [facility] ID Date Data Source [id number] 08/25/2020 05:41:10 PM EDT [facility] Name Value Range Interpretation Code Description Data Monika rce(s) Supporting Document(s) MAGNESIUM 6.5 mg/dL (1.7-2.4) HH [facility] RESULT(S) CALLED TO AND READ BACK BYLISSET Guadalupe AT 1739 ON 08/25/20 [place] [id number] ID Date Data Source [id number] 08/25/2020 05:41:10 PM EDT [facility] Name Value Range Interpretation Code Description Data Monika rce(s) Supporting Document(s) URIC ACID 7.0 mg/dL (2.6-6.0) H [facility] ID Date Data Source [id number] 08/25/2020 05:41:10 PM EDT [facility] Name Value Range Interpretation Code Description Data Monika rce(s) Supporting Document(s) SODIUM 138 mmol/L (136-145) [facility] POTASSIUM 4.0 mmol/L (3.6-5.2) [facility] CHLORIDE 107 mmol/L (100-108) [facility] CO2 21 mmol/L (22-31) L [facility] ANION GAP 10 mmol/L (7-16) [facility] UREA NITROGEN 11 mg/dL (7-24) [facility] CREATININE 0.78 mg/dL (0.60-1.00) [facility] BUN/CREAT RATIO 14.1 RATIO (10.0-20.0) [facility] GLUCOSE 110 mg/dL (70-99) H [facility] CALCIUM 6.8 mg/dL (8.4-10.2) L [facility] TOTAL PROTEIN 5.6 g/dL (6.4-8.2) L [facility] ALBUMIN 2.4 g/dL (3.5-4.6) L [facility] GLOBULIN 3.2 g/dL (2.7-4.3) [facility] ALB/GLOB RATIO 0.8 RATIO [facility] ALKALINE PHOSPHATASE 168 U/L (45-117) H [facility] BILIRUBIN,TOTAL 0.2 mg/dL (0.0-1.0) [facility] PLEASE NOTE:Total bilirubin results may be falselyelevated in patients taking Eltrombopag. AST (SGOT) 22 U/L (11-39) [facility] ALT (SGPT) 17 U/L (12-78) [facility] GFR >60 ml/min/1.73m2 (>59) [facility] GFR ( AMER) >60 ml/min/1.73m2 (>59) [facility] GFR INTERPRETATION [facility] --NORMAL KIDNEY FUNCTION OR MILD DISEASE - GFR >OR= 60CHRONIC KIDNEY DISEASE - GFR 15 - 59RENAL FAILURE - GFR <15 Est. GFR calculation based on the MDRDstudy equation, which assumes a steadystate for creatinine. Est. GFR should notbe used for medication dosing. ID Date Data Source [id number] 08/25/2020 05:04:28 PM EDT [facility] Name Value Range Interpretation Code Description Data [facility] rce(s) Supporting Document(s) WBC 13.2 10*3/uL (4.1-11.0) H [facility] RBC 4.12 10*6/uL (4.00-5.40) [facility] HGB 9.9 g/dL (12.0-16.0) L [facility] HCT 31.6 % (36.0-47.0) L [facility] MCV 76.6 fL (80.0-95.0) L [facility] MCH 24.1 pg (27.0-32.0) L [facility] MCHC 31.5 g/dL (32.0-36.0) L [facility] RDW 16.6 % (10.5-14.5) H [facility] PLT 195 10*3/uL (150-450) [facility] MPV 9.9 fL (7.1-10.7) [facility] ID Date Data Source [id number] 08/25/2020 06:59:19 AM EDT [facility] Name Value Range Interpretation Code Description Data Monika rce(s) Supporting Document(s) MAGNESIUM 6.5 mg/dL (1.7-2.4) HH [facility] RESULT(S) CALLED TO AND READ BACK BYCELIA HUA ON 8S AT 0656 ON 08/25/20.30700 ID Date Data Source [id number] 08/25/2020 06:35:10 AM EDT [facility] Name Value Range Interpretation Code Description Data Monika rce(s) Supporting Document(s) SODIUM 137 mmol/L (136-145) [facility] POTASSIUM 4.3 mmol/L (3.6-5.2) [facility] CHLORIDE 105 mmol/L (100-108) [facility] CO2 21 mmol/L (22-31) L [facility] ANION GAP 11 mmol/L (7-16) [facility] UREA NITROGEN 10 mg/dL (7-24) [facility] CREATININE 0.73 mg/dL (0.60-1.00) [facility] BUN/CREAT RATIO 13.7 RATIO (10.0-20.0) [facility] GLUCOSE 106 mg/dL (70-99) H [facility] CALCIUM 7.2 mg/dL (8.4-10.2) L [facility] TOTAL PROTEIN 6.0 g/dL (6.4-8.2) L [facility] ALBUMIN 2.5 g/dL (3.5-4.6) L [facility] GLOBULIN 3.5 g/dL (2.7-4.3) [facility] ALB/GLOB RATIO 0.7 RATIO [facility] ALKALINE PHOSPHATASE 187 U/L (45-117) H [facility] BILIRUBIN,TOTAL 0.3 mg/dL (0.0-1.0) [facility] PLEASE NOTE:Total bilirubin results may be falselyelevated in patients taking Eltrombopag. AST (SGOT) 21 U/L (11-39) [facility] ALT (SGPT) 20 U/L (12-78) [facility] GFR >60 ml/min/1.73m2 (>59) [facility] GFR ( AMER) >60 ml/min/1.73m2 (>59) [facility] GFR INTERPRETATION [facility] --NORMAL KIDNEY FUNCTION OR MILD DISEASE - GFR >OR= 60CHRONIC KIDNEY DISEASE - GFR 15 - 59RENAL FAILURE - GFR <15 Est. GFR calculation based on the MDRDstudy equation, which assumes a steadystate for creatinine. Est. GFR should notbe used for medication dosing. ID Date Data Source [id number] 08/25/2020 06:35:10 AM EDT [facility] Name Value Range Interpretation Code Description Data Monika rce(s) Supporting Document(s) URIC ACID 6.8 mg/dL (2.6-6.0) H [facility] ID Date Data Source [id number] 08/25/2020 06:35:10 AM EDT [facility] Name Value Range Interpretation Code Description Data [facility] rce(s) Supporting Document(s) LDH 204 U/L (84-246) [facility] ID Date Data Source [id number] 08/25/2020 06:04:37 AM EDT [facility] Name Value Range Interpretation Code Description Data [facility] rce(s) Supporting Document(s) WBC 14.2 10*3/uL (4.1-11.0) H [facility] RBC 4.26 10*6/uL (4.00-5.40) [facility] HGB 10.4 g/dL (12.0-16.0) L [facility] HCT 32.5 % (36.0-47.0) L [facility] MCV 76.4 fL (80.0-95.0) L [facility] MCH 24.5 pg (27.0-32.0) [facility] MCHC 32.1 g/dL (32.0-36.0) [facility] RDW 16.5 % (10.5-14.5) [facility] PLT 179 10*3/uL (150-450) [facility] MPV 9.9 fL (7.1-10.7) [facility] ID Date Data Source [id number] 08/24/2020 11:15:59 PM EDT [facility] Name Value Range Interpretation Code Description Data Monika rce(s) Supporting Document(s) MAGNESIUM 6.4 mg/dL (1.7-2.4) [facility] CONSISTENT WITH PREVIOUS RESULTS ID Date Data Source [id number] 08/24/2020 06:54:55 AM EDT [facility] Name Value Range Interpretation Code Description Data Monika rce(s) Supporting Document(s) LDH 239 U/L (84-246) [facility] ID Date Data Source [id number] 08/24/2020 06:54:55 AM EDT [facility] Name Value Range Interpretation Code Description Data Monika rce(s) Supporting Document(s) MAGNESIUM 5.5 mg/dL (1.7-2.4) [facility] RESULT(S) CALLED TO AND READ BACK ARDEN Gauthier IN LD AT 0653 ON 08/24/20.72214 ID Date Data Source [id number] 08/24/2020 06:54:55 AM EDT [facility] Name Value Range Interpretation Code Description Data Monika rce(s) Supporting Document(s) URIC ACID 6.3 mg/dL (2.6-6.0) [facility] ID Date Data Source [id number] 08/24/2020 06:54:55 AM EDT [facility] Name Value Range Interpretation Code Description Data Monika rce(s) Supporting Document(s) SODIUM 138 mmol/L (136-145) [facility] POTASSIUM 4.3 mmol/L (3.6-5.2) [facility] CHLORIDE 107 mmol/L (100-108) [facility] CO2 21 mmol/L (22-31) [facility] ANION GAP 10 mmol/L (7-16) [facility] UREA NITROGEN 8 mg/dL (7-24) [facility] CREATININE 0.59 mg/dL (0.60-1.00) [facility] BUN/CREAT RATIO 13.6 RATIO (10.0-20.0) [facility] GLUCOSE 95 mg/dL (70-99) [facility] CALCIUM 7.7 mg/dL (8.4-10.2) [facility] TOTAL PROTEIN 5.9 g/dL (6.4-8.2) L [facility] ALBUMIN 2.5 g/dL (3.5-4.6) L [facility] GLOBULIN 3.4 g/dL (2.7-4.3) [facility] ALB/GLOB RATIO 0.7 RATIO [facility] ALKALINE PHOSPHATASE 198 U/L (45-117) [facility] BILIRUBIN,TOTAL 0.4 mg/dL (0.0-1.0) [facility] PLEASE NOTE:Total bilirubin results may be falselyelevated in patients taking Eltrombopag. AST (SGOT) 25 U/L (11-39) [facility] ALT (SGPT) 20 U/L (12-78) [facility] GFR >60 ml/min/1.73m2 (>59) Lab [facility] GFR ( AMER) >60 ml/min/1.73m2 (>59) [facility] [place] [facility] GFR INTERPRETATION [facility] --NORMAL KIDNEY FUNCTION OR MILD DISEASE - GFR >OR= 60CHRONIC KIDNEY DISEASE - GFR 15 - 59RENAL FAILURE - GFR <15 Est. GFR calculation based on the MDRDstudy equation, which assumes a steadystate for creatinine. Est. GFR should notbe used for medication dosing. ID Date Data Source [id number] 08/24/2020 05:58:58 AM EDT [facility] [place] [facility] Name Value Range Interpretation Code Description Data Monika rce(s) Supporting Document(s) WBC 13.5 10*3/uL (4.1-11.0) H [facility] [place] [facility] RBC 4.51 10*6/uL (4.00-5.40) [facility] [place] [facility] HGB 10.9 g/dL (12.0-16.0) L [facility] [place] [facility] HCT 34.2 % (36.0-47.0) L [facility] [place] [facility] MCV 75.8 fL (80.0-95.0) L [facility] [place] [facility] MCH 24.3 pg (27.0-32.0) L [facility] [place] [facility] MCHC 32.0 g/dL (32.0-36.0) [facility] [place] [facility] RDW 16.0 % (10.5-14.5) H [facility] [place] [facility] [place] PLT 182 10*3/uL (150-450) [facility] [place] [facility] [place] [facility] MPV 9.5 fL (7.1-10.7) [facility] [place] [facility] [place] ID Date Data Source [id number] 08/23/2020 05:50:00 PM EDT [facility] Name Value Range Interpretation Code Description Data Monika rce(s) Supporting Document(s) SARS coronavirus 2 RNA [Presence] in Res piratory specimen by SLY with probe detection NOT DETECTED [facility] This lab was reported by [facility] [place] [facility]. ID Date Data Source [id number] 08/23/2020 06:38:17 PM EDT [facility] [place] [facility] [place] Name Value Range Interpretation Code Description Data Monika rce(s) Supporting Document(s) SPECIMEN DESCRIPTION [facility] INFLUENZA A (NEG) [facility] [place] [facility] [place] INFLUENZA B (NEG) [facility] [place] [facility] [place] RSV (NEG) [facility] [place] [facility] COMMENT [facility] [place] [facility] THE [place] FDA HAS MADE THIS TEST AVAILABL EUNDER AN EMERGENCY USE AUTHORIZATION(EUA) FOR THE DETECTION AND/OR DIAGNOSISOF THE VIRUS THAT CAUSES COVID-19.[facility] [address] COVID19 RESULT (NDET) [facility] [place] [facility] SUAREZ THIS ASSAY AMPLIFIES AND DETECTSTHE TARG ET RNA USING REAL-TIME PCR.TESTING PERFORMED ON [employer] GENEXPERTNEGATIVE 2019_NCOV RT-PCR RESULTS DONOT PRECLUDE 2019_NCOV INFECTION ANDSHOULD NOT BE USED THE SOLE BASISFOR PATIENT MANAGEMENT DECISIONS. FIRST TEST [facility] [place] [facility] SYMPTOMATIC [facility] [place] [facility] [place] DATE OF SYMPT ONSET [facility] HOSPITALIZED [facility] [place] ICU [facility] [place] [facility] CONGREGATE CARE SET [facility] [place] [facility] ID Date Data Source [id number] 08/24/2020 04:07:08 PM EDT [facility] SPECIMEN DESCRIPTION URINE, COLLE CTION METHOD NOT SPECIFIEDCULTURE RESULTS MIXED UROGENITAL MARIE; PLEASE SUBMIT A NEW SPEC IMEN IF CLINICALLY INDICATED.REPORT STATUS FINAL 08/24/2020 Name Value Range Interpretation Code Description Data Monika rce(s) Supporting Document(s) ID Date Data Source [id number] 08/23/2020 06:25:04 PM EDT [facility] [place] [facility] Name Value Range Interpretation Code Description Data Monika rce(s) Supporting Document(s) LDH 196 U/L (84-246) [facility] [place] [facility] ID Date Data Source [id number] 08/23/2020 06:24:39 PM EDT [facility] Name Value Range Interpretation Code Description Data Monika rce(s) Supporting Document(s) SODIUM 142 mmol/L (136-145) [facility] [place] [facility] [place] POTASSIUM 4.1 mmol/L (3.6-5.2) [facility] [place] [facility] [place] CHLORIDE 110 mmol/L (100-108) H [facility] [place] [facility] [place] CO2 25 mmol/L (22-31) [facility] [place] [facility] [place] ANION GAP 7 mmol/L (7-16) [facility] [place] [facility] [place] UREA NITROGEN 5 mg/dL (7-24) L [facility] [place] [facility] [place] CREATININE 0.55 mg/dL (0.60-1.00) L [facility] [place] [facility] [place] BUN/CREAT RATIO 9.1 RATIO (10.0-20.0) L [facility] [place] [facility] GLUCOSE 77 mg/dL (70-99) [facility] [place] [facility] CALCIUM 8.2 mg/dL (8.4-10.2) L [facility] [place] [facility] TOTAL PROTEIN 5.3 g/dL (6.4-8.2) L [facility] [place] [facility] ALBUMIN 2.4 g/dL (3.5-4.6) L [facility] [place] [facility] GLOBULIN 2.9 g/dL (2.7-4.3) [facility] [place] [facility] ALB/GLOB RATIO 0.8 RATIO [facility] [place] [facility] ALKALINE PHOSPHATASE 175 U/L (45-117) H [facility] [place] BILIRUBIN,TOTAL 0.3 mg/dL (0.0-1.0) [facility] [place] [facility] [place] PLEASE NOTE:Total bilirubin results may be falselyelevated in patients taking Eltrombopag. AST (SGOT) 24 U/L (11-39) [facility] [place] [facility] ALT (SGPT) 17 U/L (12-78) [facility] [place] [facility] GFR >60 ml/min/1.73m2 (>59) [facility] [place] [facility] GFR ( AMER) >60 ml/min/1.73m2 (>59) [facility] [place] [facility] GFR INTERPRETATION [facility] --NORMAL KIDNEY FUNCTION OR MILD DISEASE - GFR >OR= 60CHRONIC KIDNEY DISEASE - GFR 15 - 59RENAL FAILURE - GFR <15 Est. GFR calculation based on the MDRDstudy equation, which assumes a steadystate for creatinine. Est. GFR should notbe used for medication dosing. ID Date Data Source [id number] 08/23/2020 06:24:39 PM EDT [facility] [place] [facility] Name Value Range Interpretation Code Description Data Monika rce(s) Supporting Document(s) URIC ACID 5.7 mg/dL (2.6-6.0) [facility] [place] [facility] [place] ID Date Data Source [id number] 08/23/2020 06:23:24 PM EDT [facility] [place] [facility] Name Value Range Interpretation Code Description Data Monika rce(s) Supporting Document(s) URINE WBC (0-5) [facility] [place] [facility] URINE RBC (0-2) [facility] [place] [facility] EPITHELIAL CELLS 4+ [HPF] [facility] [place] [facility] BACTERIA 2+ [HPF] [facility] [place] [facility] ID Date Data Source [id number] 08/23/2020 06:17:17 PM EDT [facility] [place] [facility] Name Value Range Interpretation Code Description Data Monika rce(s) Supporting Document(s) PROTEIN,URINE 94 mg/dL [facility] [place] [facility] URINE PROTEIN MAY BE FALSELY ELEVATEDDUR ING TREATMENT WITH AMINOGLYCOSIDESDUE TO METHOD INTERFERENCE. CREATININE,URINE 13.40 mg/dL [facility] URINE TP/CR RATIO 7.01 RATIO (0.00-0.20) H [facility] ID Date Data Source [id number] 08/23/2020 06:06:49 PM EDT [facility] [place] [facility] [place] Name Value Range Interpretation Code Description Data Monika rce(s) Supporting Document(s) WBC 11.3 10*3/uL (4.1-11.0) H [facility] [place] [facility] RBC 4.16 10*6/uL (4.00-5.40) [facility] [place] [facility] HGB 10.2 g/dL (12.0-16.0) L [facility] [place] [facility] [place] HCT 31.8 % (36.0-47.0) L [facility] [place] [facility] [place] MCV 76.4 fL (80.0-95.0) L [facility] [place] [facility] [place] MCH 24.4 pg (27.0-32.0) L [facility] [place] [facility] [place] MCHC 31.9 g/dL (32.0-36.0) L [facility] [place] [facility] [place] RDW 16.3 % (10.5-14.5) H [facility] [place] [facility] [place] PLT 169 10*3/uL (150-450) [facility] [place] [facility] [place] MPV 10.2 fL (7.1-10.7) [facility] [place] [facility] ID Date Data Source [id number] 08/23/2020 06:01:42 PM EDT [facility] [place] [facility] Name Value Range Interpretation Code Description Data Monika rce(s) Supporting Document(s) COLOR [facility] [place] [facility] APPEARANCE [facility] [place] [facility] SPEC GRAV URINE 1.005 (1.003-1.030) [facility] [place] PH URINE 7.0 (5.0-7.5) [facility] [place] [facility] LEUK ESTERASE 2+ (NEG) A [facility] [place] [facility] NITRITE URINE (NEG) [facility] [place] [facility] PROTEIN URINE 2+ (NEG) A [facility] [place] [facility] [place] GLUCOSE URINE (NEG) [facility] [place] [facility] [place] KETONE URINE (NEG) [facility] [place] UROBILINOGEN 0.2 mg/dL (0-1.0) [facility] [place] BILIRUBIN URINE (NEG) [facility] [place] [facility] [place] BLOOD/HGB URINE (NEG) A [facility] [place] [facility] [place] ID Date Data Source [id number] 08/23/2020 07:34:00 PM EDT [facility] [place] [facility] SPEC EXP DATE 08/26/2020ATI ENT ABO/Rh O POSITIVEANTIBODY SCREEN NEGATIVETESTING SITE PERFORMED AT [address] [address] COMMENT BLOOD TYPE CONFIRMED. Name Value Range Interpretation Code Description Data Monika rce(s) Supporting Document(s) ID Date Data Source [id number] 07/26/2020 11:16:51 AM EST [facility] [place] [facility] [place] SPECIMEN DESCRIPTION URINE, COLLE CTION METHOD NOT SPECIFIEDCULTURE RESULTS MIXED UROGENITAL MARIE; PLEASE SUBMIT A NEW SPEC IMEN IF CLINICALLY INDICATED.REPORT STATUS FINAL 07/26/2020 Name Value Range Interpretation Code Description Data Monika rce(s) Supporting Document(s) ID Date Data Source [id number] 07/25/2020 10:17:48 AM EST [facility] [place] [facility] Name Value Range Interpretation Code Description Data Monika rce(s) Supporting Document(s) URINE WBC (0-5) [facility] [place] [facility] URINE RBC (0-2) [facility] [place] [facility] EPITHELIAL CELLS 2+ [HPF] [facility] [place] [facility] BACTERIA 1+ [HPF] [facility] [place] [facility] ID Date Data Source [id number] 07/25/2020 10:02:47 AM EST [facility] [place] [facility] Name Value Range Interpretation Code Description Data Monika rce(s) Supporting Document(s) COLOR [facility] [place] [facility] PERFORMED AT [address] [place] [address] APPEARANCE [facility] [place] [facility] [place] SPEC GRAV URINE 1.016 (1.003-1.030) [facility] PH URINE 7.0 (5.0-7.5) [facility] [place] [facility] LEUK ESTERASE 1+ (NEG) A [facility] [place] [facility] [place] NITRITE URINE (NEG) [facility] [place] [facility] [place] PROTEIN URINE (NEG) [facility] [place] [facility] [place] GLUCOSE URINE (NEG) [facility] [place] [facility] [place] KETONE URINE (NEG) [facility] [place] [facility] UROBILINOGEN 0.2 mg/dL (0-1.0) [facility] [place] BILIRUBIN URINE (NEG) [facility] [place] BLOOD/HGB URINE (NEG) [facility] [place] [facility] [place] ID Date Data Source [id number] 07/26/2020 02:40:33 PM EST [facility] [place] [facility] Name Value Range Interpretation Code Description Data Monika rce(s) Supporting Document(s) SPECIMEN DESCRIPTION Lab [facility] of [facility] C. TRACHOMATIS (NEG) [facility] [place] [facility] THIS ASSAY AMPLIFIES AND DETECTS TARGETD NA USING ORACLE SOA ARCHITECT-MEDIATEDAMPLIFICATION N. GONORRHOEAE (NEG) [facility] [place] [facility] THIS ASSAY AMPLIFIES AND DETECTS TARGETD NA USING ORACLE SOA ARCHITECT-MEDIATEDAMPLIFICATION ID Date Data Source [id number] 07/25/2020 10:50:50 AM EST [facility] [place] [facility] SPECIMEN DESCRIPTION VAGINAL SPEC IMENRESULT POSITIVE FOR GARDNERELLA VAGINALIS BY DNA PROBE NEGATIVE FOR ROMY SPECIES BY DNA PROBE NEGATIVE FOR TRICHOMONAS VAGINALIS BY DNA PROBEPERFORMED AT [address] [place] [address] REPORT STATUS FINAL 07/25/2020 Name Value Range Interpretation Code Description Data Monika rce(s) Supporting Document(s) ID Date Data Source [id number] 04/02/2020 12:58:53 PM EST Laboratory [facility] Name Value Range Interpretation Code Description Data Monika rce(s) Supporting Document(s) SPECIMEN DESCRIPTION Laborator [facility] [place] [facility] C. TRACHOMATIS (NEG) Laboratory [facility] of [facility] THIS ASSAY AMPLIFIES AND DETECTS TARGETD NA USING ORACLE SOA ARCHITECT-MEDIATEDAMPLIFICATION N. GONORRHOEAE (NEG) Laboratory [facility] of [facility] THIS ASSAY AMPLIFIES AND DETECTS TARGETD NA USING ORACLE SOA ARCHITECT-MEDIATEDAMPLIFICATION ID Date Data Source [id number] 04/03/2020 07:42:32 AM EST Laboratory [facility] [...] Ever Smoked complete d Denies Ever Smoked [facility] Smoking 08/23/2020 05:35:00 PM EDT Denies Ever Smoked complete d Denies Ever Smoked [facility] Vital Signs ID Date Data Source [id number] Name Value Range Interpretation Code Description Data Source(s) Body mass index (BMI) [Ratio] 29.2 kg/m2 29.2 k g/m2 [facility] ([facility]) Body weight 178.50 [lb_av] 178.50 [lb_av] [facility] T ([facility]) Body temperature 97.1 [degF] 97.1 [degF] [facility] ([facility] Body height 65.5 [in_i] 65.5 [in_i] [facility] ([facility]) 5'5.50" Body temperature 97.9 [degF] 97.9 [degF] [facility] [...] [facility] Body weight 179.38 [lb_av] 179.38 [lb_av] [facility] T ([facility] Oxygen saturation in Arterial blood by Pulse oximetry 98 % 98 % [facility] ([facility] [place] body weight 125 [lb_av] 125 [lb_av] [facility] T ([facility] Body mass index (BMI) [Ratio] 29.6 kg/m2 29.6 k g/m2 [facility] ([facility] Respiratory rate 16 min Normal (applies to non-numeric results) 16 min [facility] Systolic blood pressure 118 mm[Hg] Normal (applies t o non-numeric results) 118 mm[Hg] [facility] Diastolic blood pressure 78 mm[Hg] Normal (applies to non-numeric results) 78 mm[Hg] [facility] Heart rate 102 min Normal (applies to non-numeric resul ts) 102 min [facility] Body temperature 36.4 flaco Normal (applies to non-numeric results) 36.4 flaco [facility] Body height 0.0 cm Normal (applies to non-numeric resu lts) 0.0 cm [facility] Deprecated Oxygen saturation in Capillary blood by Oximetry 98 % Normal (applies to non-numeric results) 98 % [facility] Body mass index (BMI) [Ratio] 34.05 kg/m2 No rmal (applies to non-numeric results) 34.05 kg/m2 [facility] Body weight Measured 95.7 kg Normal (applies to non-num warner results) 95.7 kg [facility]
== END 2021-04-02 07:55 | disposition home or self-care (01) ==
LOC: M ED 04:44
DX: R25.2 Cramp and spasm (principal); D64.9 Anemia, unspecified

== ENCOUNTER → 2021-05-26 | Outpatient (CLI) | payer BC ==
[~2021-05-26] MED LIST changes: +LEVOTAB11
[2021-05-26 16:45] LABS: ALBUMIN 3.9 GM/DL (3.2-5.2); ALT/SGPT 21 U/L (12-78); BILIRUBIN,TOTAL 0.3 MG/DL (0.2-1.0); BLOOD UREA NITROGEN 12 MG/DL (7-18); CALCIUM LEVEL 9.1 MG/DL (8.5-10.1); CARBON DIOXIDE LEVEL 26 MEQ/L (21-32); CHLORIDE LEVEL 107 MEQ/L (98-107); CREATININE FOR GFR 0.88 MG/DL (0.55-1.30); GLOMERULAR FILTRATION RATE > 60.0 (>60); GLUCOSE, FASTING 96 MG/DL (70-100); POTASSIUM SERUM 4.1 MEQ/L (3.5-5.1); SODIUM LEVEL 140 MEQ/L (136-145); TOTAL PROTEIN 7.3 GM/DL (6.4-8.2)
[2021-05-26 16:52] LABS: CORTISOL BASELINE 10.2 UG/DL (4.3-22.4)
== END ==
LOC: M WUC 11:33
PROVIDERS: ATTEND Student in an Organized Health Care Education/Training Program
DX: E34.9 Endocrine disorder, unspecified (principal)

== ENCOUNTER → 2021-05-26 | Outpatient (CLI) | payer BC ==
[2021-05-26 16:11] LABS: APPEARANCE, URINE CLEAR (CLEAR); BACTERIA, URINE AUTO NEGATIVE (NEGATIVE); BILIRUBIN, URINE AUTO NEGATIVE (NEGATIVE); BLOOD, URINE BLOOD 1+ (NEGATIVE); COLOR, URINE YELLOW (YELLOW); GLUCOSE, URINE (UA) AUTO NEGATIVE (NEGATIVE); KETONE, URINE AUTO NEGATIVE (NEGATIVE); LEUKOCYTE ESTERASE, URINE AUTO NEGATIVE (NEGATIVE); NITRITE, URINE AUTO NEGATIVE (NEGATIVE); PROTEIN, URINE AUTO NEGATIVE (NEGATIVE); RBC, URINE AUTO 0 /HPF (0-3); SPECIFIC GRAVITY URINE AUTO 1.017 (1.002-1.035); SQUAMOUS EPITHELIAL CELL UR AU 1 /HPF (0-6); UROBILINOGEN, URINE AUTO 0.2 mg/dL (0.0-2.0); WBC, URINE AUTO 0 /HPF (0-3)
== END ==
LOC: M WUC 11:37
PROVIDERS: ATTEND Internal Medicine Cardiovascular Disease
DX: R03.0 Elevated blood-pressure reading, without diagnosis of hypertension (principal); I10 Essential (primary) hypertension

== ENCOUNTER → 2021-06-04 | Outpatient (CLI) | payer BC ==
--- NOTE | 2021-06-04 07:58 | REP ---
INDICATION: HTN COMPARISON: None TECHNIQUE: Real time escamilla scale ultrasound examination using curved array transducer followed by color Doppler evaluation of the renal vasculature. FINDINGS: The bilateral kidneys are normal in contour, size, and echogenicity. No hydronephrosis, nephrolithiasis, cystic or renal mass lesion. Right kidney measures 11.3 x 5.0 x 3.7 cm. Left kidney measures 10.6 x 4.9 x 4.7 cm. Color Doppler evaluation is limited due to bowel gas.. Peak aortic velocity: 119 centimeters/second RIGHT KIDNEY Renal arterial velocity: 108 centimeters/second Renal-aortic ratio: 0.9 Intrarenal resistive indices: 0.62-0.65 Intrarenal acceleration times: 0.044-0.052 LEFT KIDNEY Renal arterial velocity: 114 centimeters/second Renal-aortic ratio: 1.0 Intrarenal resistive indices: 0.59-0.65 Intrarenal acceleration times: 0.032-0.050 IMPRESSION: 1. Kidneys appear normal. 2. Doppler interegation without sonographic evidence for renal arterial stenosis. <Electronically signed by Shade Torres > 06/04/21 [id number]
== END ==
LOC: M RAD 06:33
PROVIDERS: ATTEND Internal Medicine Cardiovascular Disease
DX: R03.0 Elevated blood-pressure reading, without diagnosis of hypertension (principal); I10 Essential (primary) hypertension

== ENCOUNTER → 2021-06-11 | Outpatient (CLI) | payer BC ==
[2021-06-11 13:23] LABS: ALBUMIN 3.8 GM/DL (3.2-5.2); BLOOD UREA NITROGEN 15 MG/DL (7-18); CARBON DIOXIDE LEVEL 28 MEQ/L (21-32); CHLORIDE LEVEL 105 MEQ/L (98-107); CREATININE FOR GFR 0.84 MG/DL (0.55-1.30); GLOMERULAR FILTRATION RATE > 60.0 (>60); GLUCOSE, FASTING 97 MG/DL (70-100); PHOSPHORUS LEVEL 3.6 MG/DL (2.5-4.9); POTASSIUM SERUM 3.7 MEQ/L (3.5-5.1); SODIUM LEVEL 141 MEQ/L (136-145)
== END ==
LOC: M WUC 10:44
PROVIDERS: ATTEND Internal Medicine Cardiovascular Disease
DX: R03.0 Elevated blood-pressure reading, without diagnosis of hypertension (principal)

== ENCOUNTER → 2021-08-15 | Outpatient (CLI) | payer BC ==
[2021-08-15 16:33] LABS: BLOOD UREA NITROGEN 11 MG/DL (7-18); CALCIUM LEVEL 9.2 MG/DL (8.5-10.1); CARBON DIOXIDE LEVEL 31 MEQ/L (21-32); CHLORIDE LEVEL 107 MEQ/L (98-107); CREATININE FOR GFR 0.72 MG/DL (0.55-1.30); GLOMERULAR FILTRATION RATE > 60.0 (>60); GLUCOSE, FASTING 72 MG/DL (70-100); POTASSIUM SERUM 3.5 MEQ/L (3.5-5.1); SODIUM LEVEL 142 MEQ/L (136-145)
== END ==
LOC: M WUC 11:32
PROVIDERS: ATTEND Nurse Practitioner Family
DX: I10 Essential (primary) hypertension (principal)

== ENCOUNTER → 2022-09-21 | Outpatient (REF) | payer BC ==
[2022-09-21 17:43] LABS: BLOOD UREA NITROGEN 9 MG/DL (9-23); CALCIUM LEVEL 9.1 MG/DL (8.5-10.1); CARBON DIOXIDE LEVEL 30 MMOL/L (20-31); CHLORIDE LEVEL 102 MMOL/L (98-107); CREATININE FOR GFR 0.66 MG/DL (0.55-1.30); GLOMERULAR FILTRATION RATE > 60.0 (>60); GLUCOSE, FASTING 80 MG/DL (60-100); POTASSIUM SERUM 3.4 MMOL/L (3.5-5.1); SODIUM LEVEL 138 MMOL/L (136-145)
== END ==
LOC: M LAB REF 16:13
PROVIDERS: ATTEND Physician Assistant
DX: I10 Essential (primary) hypertension (principal)

== ENCOUNTER → 2022-11-27 | Outpatient (REF) | payer BC | LOC: M LAB REF 16:27 | PROVIDERS: ATTEND Physician Assistant | DX: I10 Essential (primary) hypertension (principal) ==

== ENCOUNTER → 2023-04-09 | Outpatient (REF) | payer BC ==
[2023-04-09 11:37] LABS: BLOOD UREA NITROGEN 15 MG/DL (9-23); CALCIUM LEVEL 8.9 MG/DL (8.5-10.1); CARBON DIOXIDE LEVEL 29 MMOL/L (20-31); CHLORIDE LEVEL 102 MMOL/L (98-107); CREATININE FOR GFR 0.71 MG/DL (0.55-1.30); GLOMERULAR FILTRATION RATE > 60.0 (>60); GLUCOSE, FASTING 73 MG/DL (60-100); POTASSIUM SERUM 4.1 MMOL/L (3.5-5.1); SODIUM LEVEL 140 MMOL/L (136-145)
== END ==
LOC: M LAB REF 10:11 → M WUC 10:11
PROVIDERS: ATTEND Physician Assistant
DX: I10 Essential (primary) hypertension (principal); E87.6 Hypokalemia

== ENCOUNTER → 2023-08-27 | Outpatient (CLI) | payer BC ==
[~2023-08-27] MED LIST changes: +ISOVUE-300 61% 100ML VIAL As Ordered ONE; +LIDOCAINE 1% MDV 20ML VIAL As Ordered ONE; +PROHANCE 279.3MG/ML 5ML VIAL As Ordered ONE
== END ==
LOC: M RAD 06:33
PROVIDERS: ATTEND Physician Assistant Surgical
DX: M75.31 Calcific tendinitis of right shoulder (principal); S43.401A Unspecified sprain of right shoulder joint, initial encounter; X58.XXXA Exposure to other specified factors, initial encounter; Y92.9 Unspecified place or not applicable
CPT/HCPCS: 23350; 73223; 77002; A9576; Q9967

== ENCOUNTER → 2023-12-29 | Outpatient (CLI) | payer BC ==
[~2023-12-29] MED LIST changes: -ISOVUE-300 61% 100ML VIAL As Ordered ONE; -LIDOCAINE 1% MDV 20ML VIAL As Ordered ONE; -PROHANCE 279.3MG/ML 5ML VIAL As Ordered ONE
[2023-12-29 11:30] LABS: BASO # 0.1 10^3/uL (0.0-0.2); BASO % 0.7 % (0.0-1.0); EOS # 0.1 10^3/uL (0.0-0.5); EOS % 1.2 % (0.0-3.0); HEMATOCRIT 42.4 % (36.0-47.0); LYMPH # 2.8 10^3/uL (1.5-5.0); LYMPH % 33.4 % (24.0-44.0); MEAN CORPUSCULAR HEMOGLOBIN 28.3 pg (27.0-33.0); MEAN CORPUSCULAR VOLUME 85.8 fl (80.0-96.0); MONO # 0.5 10^3/uL (0.0-0.8); MONO % 6.1 % (2.0-8.0); NEUTROPHILS # 4.8 10^3/uL (1.5-8.5); NEUTROPHILS % 58.2 % (36.0-66.0); PLATELET COUNT, AUTOMATED 198 10^3/uL (150-450); RED BLOOD COUNT 4.94 10^6/uL (4.00-5.40); WHITE BLOOD COUNT 8.3 10^3/uL (4.0-10.0)
[2023-12-29 11:39] LABS: ALBUMIN 4.3 G/DL (3.2-5.2); ALKALINE PHOSPHATASE 85 U/L (46-116); ALT/SGPT 20 U/L (7.0-40); AST/SGOT 14 U/L (<34); BLOOD UREA NITROGEN 12 MG/DL (9-23); CALCIUM LEVEL 9.3 MG/DL (8.5-10.1); CARBON DIOXIDE LEVEL 29 MMOL/L (20-31); CHLORIDE LEVEL 104 MMOL/L (98-107); CHOLESTEROL LEVEL 180 MG/DL (<200); CHOLESTEROL RISK RATIO 4.26 (<5); GLOMERULAR FILTRATION RATE > 60.0 (>60); GLUCOSE, FASTING 83 MG/DL (60-100); HDL CHOLESTEROL 42.2 MG/DL (>40); LDL CHOLESTEROL 116.4 MG/DL (<100); NON-HDL-C 137.8 MG/DL; SODIUM LEVEL 139 MMOL/L (136-145); TOTAL PROTEIN 6.8 G/DL (5.7-8.2); TRIGLYCERIDES LEVEL 107 MG/DL (<150)
[2023-12-29 11:40] LABS: FREE T4 0.99 NG/DL (0.89-1.76); THYROID STIMULATING HORMONE 1.381 uIU/ML (0.55-4.78)
== END ==
LOC: M WUC 07:52
PROVIDERS: ATTEND Nurse Practitioner Family
DX: I10 Essential (primary) hypertension (principal); E66.9 Obesity, unspecified

== ENCOUNTER → 2024-04-20 | Outpatient (CLI) | payer OTHER | LOC: M WUC 08:21 | PROVIDERS: ATTEND Student in an Organized Health Care Education/Training Program | DX: R05.9 Cough, unspecified (principal) ==

== ENCOUNTER → 2025-01-03 | Outpatient (CLI) | payer OTHER ==
[2025-01-03 12:52] LABS: ALT/SGPT 16 U/L (7.0-40); AST/SGOT 18 U/L (<34); CALCIUM LEVEL 9.4 MG/DL (8.5-10.1); CARBON DIOXIDE LEVEL 29 MMOL/L (20-31); CHLORIDE LEVEL 105 MMOL/L (98-107); CHOLESTEROL LEVEL 185 MG/DL (<200); CHOLESTEROL RISK RATIO 3.50 (<5); CREATININE FOR GFR 0.79 MG/DL (0.55-1.30); GLOMERULAR FILTRATION RATE > 90.0 (>60); LDL CHOLESTEROL 119.8 MG/DL (<100); NON-HDL-C 132.2 MG/DL; POTASSIUM SERUM 3.9 MMOL/L (3.5-5.1); SODIUM LEVEL 142 MMOL/L (136-145); TRIGLYCERIDES LEVEL 62 MG/DL (<150)
== END ==
LOC: M WUC 08:18
PROVIDERS: ATTEND Nurse Practitioner Family
DX: I10 Essential (primary) hypertension (principal)

== ENCOUNTER → 2025-05-04 | Outpatient (CLI) | payer OTHER ==
[~2025-05-04] MED LIST changes: +PROHANCE 279.3MG/ML 15ML VIAL ONE
== END ==
LOC: M PLAIMG 12:39
PROVIDERS: ATTEND Student in an Organized Health Care Education/Training Program
DX: R92.8 Other abnormal and inconclusive findings on diagnostic imaging of breast (principal)